=== PATIENT | male | born 1970 | race Caucasian/White ===

== ENCOUNTER 2023-02-10 14:00 | Inpatient (IN) | payer MEDICAID, SELFPAY ==
[2023-02-10] VITALS (8 sets, daily range): BP systolic 92–143; BP diastolic 51–90; PULSE 77–101; RESP 14–34; TEMP 35.8–38.2; O2SAT 90–100; BMI 27.2; BMI 26.6
--- NOTE | ~2023-02-10 | XR_ITS ---
EXAMINATION: XR CHEST CLINICAL INFORMATION: Short of breath. COMPARISON: None available. TECHNIQUE: Frontal view of the chest was obtained. FINDINGS: The lungs are expanded with no acute pneumonic process. Heart size is normal. There is increased bilateral pulmonary vascularity suggestive of CHF. No gross bony abnormality seen. XR/XR chest 1V IMPRESSION: Mild CHF. No acute pneumonic process seen.
--- NOTE | 2023-02-10 14:05 | ECG_ITS ---
Test Reason : AMS Blood Pressure : / mmHG Vent. Rate : 099 BPM Atrial Rate : 099 BPM P-R Int : 140 ms QRS Dur : 134 ms QT Int : 370 ms P-R-T Axes : 042 -86 034 degrees QTc Int : 474 ms Normal sinus rhythm Right bundle branch block Left anterior fascicular block Bifascicular block Abnormal ECG No previous ECGs available Referred By: Lesley Wilks Electronically Signed By:TODD FAITH MD
--- NOTE | 2023-02-10 14:10 | ED_ITS ---
HPI - General Adult General Chief complaint: Altered Mental Status Stated complaint: AMS,SOB,FROM SNF PER EMS Time Seen by Provider: 02/10/23 14:04 Source: EMS Mode of arrival: EMS History of Present Illness HPI narrative: 53-year-old male arrives via EMS with worsening altered mental status and noted to be hypoxic on their arrival at 83% with altered mental status from baseline. Patient's baseline is that he is agitated and aggressive and EMS also informs us that he has a history of pneumonia but they are unaware of any asthma/COPD. Related Data Home Medications Medication Instructions Recorded Confirmed Lactobacillus acidophilus 1 cap PO BID 02/10/23 02/10/23 (Acidophilus capsule) acetaminophen 160 mg/5 mL oral 650 mg PO Q6H PRN Fever Or Pain 02/10/23 02/10/23 liquid acetaminophen 325 mg tablet 650 mg PO TID back pain 02/10/23 02/10/23 amlodipine 5 mg tablet 5 mg PO DAILY 02/10/23 02/10/23 aspirin 81 mg chewable tablet 81 mg PO DAILY 02/10/23 02/10/23 atorvastatin 80 mg tablet 80 mg PO BEDTIME 02/10/23 02/10/23 clonidine HCl 0.1 mg tablet 0.1 mg PO BID 02/10/23 02/10/23 docusate sodium 50 mg/5 mL oral 100 mg PO DAILY 02/10/23 02/10/23 liquid doxycycline monohydrate 100 mg 100 mg PO BID 02/10/23 02/10/23 tablet famotidine 20 mg tablet 20 mg PO BEDTIME 02/10/23 02/10/23 hydroxyzine HCl 25 mg tablet 25 mg PO BID PRN Agitation 02/10/23 02/10/23 insulin glargine 100 unit/mL (3 14 unit subcut QAM 02/10/23 02/10/23 mL) subcutaneous pen (Lantus Solostar U-100 Insulin) insulin glargine 100 unit/mL 22 unit subcut BEDTIME 02/10/23 02/10/23 subcutaneous solution (Lantus U-100 Insulin) insulin lispro 100 unit/mL 1 sliding scale dose subcut 02/10/23 02/10/23 subcutaneous pen USEASDIRECTD lactulose 10 gram/15 mL oral 30 ml PO BID 02/10/23 02/10/23 solution levetiracetam 750 mg tablet 750 mg PO BID 02/10/23 02/10/23 melatonin 10 mg tablet 10 mg PO BEDTIME 02/10/23 02/10/23 metformin 1,000 mg tablet 1,000 mg PO BID 02/10/23 02/10/23 miconazole nitrate 2 % topical 1 appl topical BID 02/10/23 02/10/23 powder prednisone 20 mg tablet See Taper PO DAILY 02/10/23 02/10/23 propranolol 40 mg tablet 40 mg PO TID 02/10/23 02/10/23 risperidone 2 mg tablet (Risperdal) 2 mg PO BID 02/10/23 02/10/23 sennosides 8.6 mg tablet (senna) 8.6 mg PO DAILY PRN Constipation 02/10/23 02/10/23 sodium chloride 1 gram tablet 1,000 mg PO TID 02/10/23 02/10/23 tamsulosin 0.4 mg capsule 0.4 mg PO BEDTIME 02/10/23 02/10/23 Allergies Allergy/AdvReac Type Severity Reaction Status Date / Time Unable to Assess Allergy Verified 02/10/23 14:05 Review of Systems 2 Review of Systems: Pertinent positives and negatives as stated in [facility] Past Medical History Source: nursing notes reviewed Social History Social History Advance Directives: Yes Advance Directives on File: Yes Advance Directives Date on File: 02/10/23 Physical Exam ED Vital Signs: Vital Signs - 24 hr 02/10/23 14:08 02/10/23 14:56 02/10/23 15:49 Temperature 100.7 F H Pulse Rate 98 93 89 Respiratory Rate 34 H 22 H 22 H Blood Pressure 97/63 143/90 H 115/62 Pulse Oximetry 90 L 100 100 Oxygen Delivery Method Oxymask Oxymask Oxygen Flow Rate 9 9 02/10/23 16:09 Temperature Pulse Rate 86 Respiratory Rate 21 H Blood Pressure 126/51 L Pulse Oximetry 100 Oxygen Delivery Method Oxymask Oxygen Flow Rate BMI result Body Mass Index 27.2 VITAL SIGNS: Reviewed. GENERAL: Well developed, well nourished, in no acute distress. HEAD: Normocephalic/atraumatic EYES: PERRLA, EOMI EARS: Ext canals without abnormality NOSE: Nares patent bilateral OROPHARYNX: no oral lesions noted, posterior pharynx clear, dry mucosa NECK: Supple, no adenopathy LUNGS: Bibasilar crackles, tachypnea is present with increased work of breathing. SpO2<88> 4 L nasal cannula CARDIOVASCULAR: Regular rate and rhythm without noted murmurs, no JVD or lower extremity edema. ABDOMEN: Soft, non-tender, non-distended with bowel sounds. MUSCULOSKELETAL: No tenderness, deformities, or effusions noted on gross inspection. EXTREMITIES: No cyanosis, clubbing or edema. SKIN: Inspection of the skin reveals no rashes NEUROLOGIC: lethargic and oriented x 1. Strength and sensation to light touch were grossly intact x 4. Medications Administered Discontinued Medications Generic Name Dose Route Start Last Admin Trade Name Freq PRN Reason Stop Dose Admin Acetaminophen 650 mg 02/10/23 14:19 02/10/23 16:04 Acetaminophen Supp 650 Mg Supp.Rect DE 02/10/23 14:20 650 mg ONCE ONE Administration Sodium Chloride 2,508 mls @ 2,508 mls/hr 02/10/23 14:11 02/10/23 16:19 Ns 30 ml/kg infuse over 1 hr (2508 ml) 02/10/23 15:10 Infused IV Infusion .Q1H STA Cefepime HCl 2 gm/ Sodium 50 mls @ 100 mls/hr 02/10/23 14:42 02/10/23 16:04 Chloride IV 02/10/23 15:11 100 mls/hr ONCE ONE Administration Medical Decision Making Medical Decision Making [facility] Narrative: 1405: Sepsis Alert called for a 53-year-old male who is brought in from care 1 with history of recurrent pneumonia and noted to be hypoxic as well as hypotensive. Patient immediately received bolus fluids for consecutive low blood pressures and has oxygen in place. Patient required immediate respiratory intervention, deep suctioning was conducted, improved oxygen delivery system was applied with good response. Respiratory therapy placed an OxyMask at 11 L with good response and and also suction the patient for thick secretions. 1505: I reviewed all investigations and hematologic indices are significant for leukocytosis and left shift, there is a normocytic anemia without evidence of active bleeding and no thrombocytopenia. Coagulation studies are mildly elevated with PT-19.1 and an INR 1.6. VBG negative for respiratory acidosis and there is no hypercapnia. Chemistry indices demonstrate an JONH without comparison and will assume that it is new there is a mild metabolic acidosis likely secondary to elevated lactic acid of 2.7. Mild hyperglycemia of 211 without evidence of DKA or HHS. Chest x-ray only demonstrate CHF and otherwise does not identify infiltrate and otherwise my interpretation is in agreement with radiology's impression. 1524: I discussed case with inpatient hospitalist who accepts admission. Urinalysis is pending. Differential Diagnosis Differential Diagnoses: The differential diagnosis associated with the presentation includes Please see the discussion above Admission/Observation Consideration of admission/observation: Escalation of care including admission/observation considered Please see the discussion above Consult Healthcare Provider Management of the patient was discussed with: Hospitalist Please see the discussion above Lab Data MDM Lab Attestation statement: I reviewed the patient's lab results. Please see the discussion above 02/10/23 14:38 02/10/23 14:38 Labs: Lab Results 02/10/23 02/10/23 Range/Units 14:38 14:41 WBC 16.0 H (4.8-10.8) X10*3/uL RBC 4.36 L (4.60-5.80) X10*6/uL Hgb 13.1 L (14.0-18.0) g/dl Hct 38.6 L (42.0-52.0) % MCV 88.5 (80.0-98.0) fL MCH 30.0 (27.0-33.0) pg MCHC 33.9 (31.0-36.0) g/dl RDW 13.2 (11.0-16.0) % Plt Count 176 (160-400) X10*3/uL MPV 8.7 L (9.4-12.4) fL Immature Gran % (Auto) 0.3 (0.0-0.4) % Neut % (Auto) 76.0 H (45-73) % Lymph % (Auto) 13.0 L (20-40) % [place] % (Auto) 10.4 (2-11) % Eos % (Auto) 0.0 (0-4) % Baso % (Auto) 0.3 (0-2) % Lymph # (Auto) 2.1 (1.2-4.9) X10*3/uL [place] # (Auto) 1.7 H (0.1-1.2) X10*3/uL Eos # (Auto) 0.0 (0.0-0.4) X10*3/uL Baso # (Auto) 0.0 (0.0-0.2) X10*3/uL Abs Immat Gran (auto) 0.05 H (0.00-0.03) X10*3/uL Absolute Neuts (auto) 12.1 H (2.0-8.3) x10*3/uL Absolute Nucleated RBC 0.000 (0.0-0.012) X10*3/uL Nucleated RBC % (auto) 0.0 (0.0-0.2) /100WBC Smear Tech's Comments VERIFIED PT 19.1 H (11.1-13.3) SEC INR 1.6 H (0.9-1.1) VBG pH 7.41 (7.32-7.43) VBG pCO2 35 mmHg VBG pO2 40 mmHg VBG HCO3 22 (22-26) mmol/L VBG O2 Saturation 62.0 % VBG Base Excess -1.1 mmol/L Sodium 133 L (135-145) mmol/L Potassium 5.1 (3.3-5.1) mmol/L Chloride 100 (96-108) mmol/L Carbon Dioxide 21 L (22-29) mmol/L Anion Gap 17 (12-20) BUN 22 H (9-16) mg/dL Creatinine 1.44 H (0.5-1.4) mg/dL Estim Creat Clear Calc 57.9 Estimated GFR 51 Random Glucose 211 H (60-115) mg/dL Lactic Acid 2.7 H* (0.5-2.0) mmol/L Calcium 9.8 (8.4-10.2) mg/dL Total Bilirubin 0.5 (0.0-1.0) mg/dL AST 32 (5-37) U/L ALT 24 (0-40) U/L Alkaline Phosphatase 93 (39-117) U/L B-Natriuretic Peptide 84 (<100) pg/mL Total Protein 7.6 (6.5-8.0) g/dL Albumin 4.0 (3.5-5.0) g/dL Independent Interpretation I performed an independent interpretation of an: EKG Interpretation: No sinus rhythm, HR-99, no STEMI, RBBB, DE/QTC within normal limits. Radiology Impression Discussion of test interpretation with radiology: I have reviewed the radiologist's reading. Radiologist Impression: Please see the discussion above Chronic Conditions Patient?s care impacted by: Diabetes and Other TBI Critical Care Time Critical Care Time Critical Care Time: Yes Total Critical Care Time: 60 Attestation: I personally attest to this time spent taking care of the patient. Discharge Plan Discharge Clinical Impression: Altered mental status, Acute respiratory failure with hypoxia Patient Disposition: Admitted As Inpatient
[2023-02-10 14:45] LABS: Basophils Percent Auto 0.3 % (0-2); Hematocrit 38.6 % (42.0-52.0); Hemoglobin 13.1 g/dl (14.0-18.0); Imm Gran Abs Auto 0.05 X10*3/uL (0.00-0.03); Imm Gran Pct Auto 0.3 % (0.0-0.4); Lymphocytes Absolute Auto 2.1 X10*3/uL (1.2-4.9); MANUAL DIFF FLAG SCAN; Mean Corpuscular HGB Conc 33.9 g/dl (31.0-36.0); Mean Corpuscular Volume 88.5 fL (80.0-98.0); Mean Platelet Volume 8.7 fL (9.4-12.4); Monocytes Absolute Auto 1.7 X10*3/uL (0.1-1.2); Monocytes Percent Auto 10.4 % (2-11); Neutrophils Absolute Auto 12.1 x10*3/uL (2.0-8.3); Platelet Count 176 X10*3/uL (160-400); Red Blood Count 4.36 X10*6/uL (4.60-5.80); Red Cell Distribution Width 13.2 % (11.0-16.0); SCAN SMEAR FLAG 1
[2023-02-10 14:47] LABS: VBG Base Excess -1.1 mmol/L; VBG HCO3 22 mmol/L (22-26); VBG pCO2 35 mmHg; VBG pH 7.41 (7.32-7.43); VBG pO2 40 mmHg
[2023-02-10 14:47] LABS: Venous Blood Gas Refer to POC result
[2023-02-10 14:55] LABS: INTERNATIONAL NORM RATIO 1.6 (0.9-1.1); Prothrombin Time 19.1 SEC (11.1-13.3)
[2023-02-10 15:00] LABS: Lactic Acid 2.7 mmol/L (0.5-2.0)
[2023-02-10 15:03] LABS: Alanine Aminotransferase 24 U/L (0-40); Alkaline Phosphatase 93 U/L (39-117); Anion Gap 17 (12-20); Aspartate Amino Transferase 32 U/L (5-37); Bilirubin Total 0.5 mg/dL (0.0-1.0); Blood Urea Nitrogen 22 mg/dL (9-16); Calcium 9.8 mg/dL (8.4-10.2); Carbon Dioxide 21 mmol/L (22-29); Chloride 100 mmol/L (96-108); Creatinine Clr Calc Pharmacy 57.9; Estimated Glomerular Filt Rate 51; Glucose Random 211 mg/dL (60-115); Potassium 5.1 mmol/L (3.3-5.1); Sodium 133 mmol/L (135-145); Total Protein 7.6 g/dL (6.5-8.0)
[2023-02-10 15:07] LABS: SLIDE REVIEW VERIFIED
[2023-02-10 15:08] LABS: B Type Natriuretic Peptide 84 pg/mL (<100)
--- NOTE | 2023-02-10 15:39 | PHA.MEDREC ---
Pharmacy Consult ? Medication Reconciliation Pharmacy has completed the medication reconciliation. Patient came from [facility] with med list. Justine Grier, LylyD
[2023-02-10] MEDS: Acetaminophen Supp 650 MG SUPP.RECT PR (16:04)
[2023-02-10] MEDS: cefEPime HCl 2 GM in 0.9 % Sodium Chloride 50 ML IV (16:04)
[2023-02-10 16:36] LABS: COVID-19 Test Negative (Negative); IDNOW Serial# 08D9AD1C; IDNOW Serial# BCCEAD1C; Influenza A Negative (Negative); Influenza B2 Negative (Negative)
[2023-02-10 16:38] LABS: Appearance Urine Cloudy; Color Urine Yellow; Glucose Urine UA Negative (Negative); Leukocyte Esterase Urine Moderate (2+) (Negative); Nitrite Urine Positive (Negative); PH 5.5 (5.0-9.0); Specific Gravity - Urine 1.015 (1.005-1.025); UMIC TRIGGER UACC YES; Urine Blood Negative (Negative); Urine Ketones Negative (Negative); Urine Protein Trace mg/dL (Neg-Trace)
[2023-02-10 16:43] LABS: Reflex Lactate? Lactic Acid Added
[2023-02-10 16:48] LABS: Bacteria Urine 2+ (None Seen); Calcium Oxalate Crystals Urine Present; Hyaline Casts Urine >20 /LPF (0-2); UACC Culture Trigger YES; WBC Urine 21-50 /HPF (0-5)
--- NOTE | 2023-02-10 17:12 | PM.IMHP ---
History of Present Illness Date of Service: 02/10/23 Chief Complaint: Hypoxia 53-year-old resident of [facility] well known to me presents with worsening shortness of breath over the course of the last 48 hours. Initially he examined rhonchorous with sats that were correctable to 92% with oxygen. Over the course of the last 12 hours he deteriorated with sats notably in the 80s. He presented to the ER with low-grade temp and was treated with sepsis protocol included volume resuscitation. Urine with active sediment. Received 2 g of cefepime in ER. Will be admitted for treatment of same Review of Systems Review of Systems: Unable to obtain [facility] Social History Advance Directives: Yes Advance Directives on File: Yes Advance Directives Date on File: 02/10/23 Meds Allergies Allergy/AdvReac Type Severity Reaction Status Date / Time Unable to Assess Allergy Verified 02/10/23 14:05 Active Medications: Current Medications Dextrose (Dextrose 50 % 25 Gm/50 Ml Syringe) 25 gm IVPUSH Q15M PRN; Protocol PRN Reason: per Hypoglycemia Standing Ord. Enoxaparin Sodium (Enoxaparin Sodium 40 Mg/0.4 Ml Syringe) 40 mg SUBCUT Q24H LAMIN Glucose (Glucose Gel 15 Gm Gel..Gram.) 15 gm PO Q15M PRN; Protocol PRN Reason: per Hypoglycemia Standing Ord. Lactated Ringer's (Lr) 1,000 mls @ 100 mls/hr IVCONT .Q10H LAMIN Cefepime HCl 2 gm/ Sodium (Chloride) 50 mls @ 100 mls/hr IV Q12H LAMIN Insulin Human Lispro (Insulin Lispro 100 Unit/Ml 3 Ml Vial) 0 unit SUBCUT QIDACHS [facility]; Protocol Sodium Chloride (0.9 % Sodium Chloride Flush 3 Ml Syringe) 3 ml IVFLUSH QSHIFT [facility] Home Medications Medication Instructions Recorded Confirmed Last Taken Type Lactobacillus acidophilus 1 cap PO BID 02/10/23 02/10/23 Unknown History (Acidophilus capsule) acetaminophen 160 mg/5 mL oral 650 mg PO Q6H PRN Fever Or Pain 02/10/23 02/10/23 Unknown History liquid acetaminophen 325 mg tablet 650 mg PO TID back pain 02/10/23 02/10/23 Unknown History amlodipine 5 mg tablet 5 mg PO DAILY 02/10/23 02/10/23 Unknown History aspirin 81 mg chewable tablet 81 mg PO DAILY 02/10/23 02/10/23 Unknown History atorvastatin 80 mg tablet 80 mg PO BEDTIME 02/10/23 02/10/23 Unknown History clonidine HCl 0.1 mg tablet 0.1 mg PO BID 02/10/23 02/10/23 Unknown History docusate sodium 50 mg/5 mL oral 100 mg PO DAILY 02/10/23 02/10/23 Unknown History liquid doxycycline monohydrate 100 mg 100 mg PO BID 02/10/23 02/10/23 Unknown History tablet famotidine 20 mg tablet 20 mg PO BEDTIME 02/10/23 02/10/23 Unknown History hydroxyzine HCl 25 mg tablet 25 mg PO BID PRN Agitation 02/10/23 02/10/23 Unknown History insulin glargine 100 unit/mL (3 14 unit subcut QAM 02/10/23 02/10/23 Unknown History mL) subcutaneous pen (Lantus Solostar U-100 Insulin) insulin glargine 100 unit/mL 22 unit subcut BEDTIME 02/10/23 02/10/23 Unknown History subcutaneous solution (Lantus U-100 Insulin) insulin lispro 100 unit/mL 1 sliding scale dose subcut 02/10/23 02/10/23 Unknown History subcutaneous pen USEASDIRECTD lactulose 10 gram/15 mL oral 30 ml PO BID 02/10/23 02/10/23 Unknown History solution levetiracetam 750 mg tablet 750 mg PO BID 02/10/23 02/10/23 Unknown History melatonin 10 mg tablet 10 mg PO BEDTIME 02/10/23 02/10/23 Unknown History metformin 1,000 mg tablet 1,000 mg PO BID 02/10/23 02/10/23 Unknown History miconazole nitrate 2 % topical 1 appl topical BID 02/10/23 02/10/23 Unknown History powder prednisone 20 mg tablet See Taper PO DAILY 02/10/23 02/10/23 Unknown History propranolol 40 mg tablet 40 mg PO TID 02/10/23 02/10/23 Unknown History risperidone 2 mg tablet (Risperdal) 2 mg PO BID 02/10/23 02/10/23 Unknown History sennosides 8.6 mg tablet (senna) 8.6 mg PO DAILY PRN Constipation 02/10/23 02/10/23 Unknown History sodium chloride 1 gram tablet 1,000 mg PO TID 02/10/23 02/10/23 Unknown History tamsulosin 0.4 mg capsule 0.4 mg PO BEDTIME 02/10/23 02/10/23 Unknown History Physical Exam Vital Signs and Narrative: Vital Signs: Last Vital Signs Temp 97.8 F 02/10/23 16:34 Pulse 91 02/10/23 16:34 Resp 16 02/10/23 16:34 BP 120/72 02/10/23 16:34 Pulse Ox 100 02/10/23 16:34 O2 Del Method Oxymask 02/10/23 16:34 O2 Flow Rate 9 02/10/23 16:34 BMI result Body Mass Index 27.2 Const: Other: Of time did. No respiratory distress Resp: Other: Diminished throughout with coarse rhonchi Cardio: Other: No S4; positive S1-S2; no S3 murmurs rubs or gallops GI: Other: Soft nontender nondistended normoactive bowel sounds Extrem: Other: No edema bilaterally Results Labs 02/10/23 14:38 02/10/23 14:38 Labs: Laboratory Results - last 24 hr 02/10/23 02/10/23 02/10/23 14:38 14:41 16:08 MCV 88.5 MCH 30.0 MCHC 33.9 RDW 13.2 Plt Count 176 MPV 8.7 L Immature Gran % (Auto) 0.3 Neut % (Auto) 76.0 H Lymph % (Auto) 13.0 L [place] % (Auto) 10.4 Eos % (Auto) 0.0 Baso % (Auto) 0.3 Lymph # (Auto) 2.1 [place] # (Auto) 1.7 H Eos # (Auto) 0.0 Baso # (Auto) 0.0 Abs Immat Gran (auto) 0.05 H Absolute Neuts (auto) 12.1 H Absolute Nucleated RBC 0.000 Nucleated RBC % (auto) 0.0 Smear Tech's Comments VERIFIED PT 19.1 H INR 1.6 H VBG pH 7.41 VBG pCO2 35 VBG pO2 40 VBG HCO3 22 VBG O2 Saturation 62.0 VBG Base Excess -1.1 Anion Gap 17 Estim Creat Clear Calc 57.9 Estimated GFR 51 Random Glucose 211 H Lactic Acid 2.7 H* Calcium 9.8 Total Bilirubin 0.5 AST 32 ALT 24 Alkaline Phosphatase 93 B-Natriuretic Peptide 84 Total Protein 7.6 Albumin 4.0 Urine Color Urine Appearance Urine pH Ur Specific Page Urine Protein Urine Glucose (UA) Urine Ketones Urine Blood Urine Nitrite Ur Leukocyte Esterase Urine RBC Urine WBC Ur Squamous Epith Cells Calcium Oxalate Crystal Urine Bacteria Hyaline Casts COVID-19 (PADMINI) Negative COVID-19 Clin Com See Note Influenza Type A (CASPER) Negative Influenza Type B (CASPER) Negative Influenza A & B Note See Note 02/10/23 16:18 MCV MCH MCHC RDW Plt Count MPV Immature Gran % (Auto) Neut % (Auto) Lymph % (Auto) [place] % (Auto) Eos % (Auto) Baso % (Auto) Lymph # (Auto) [place] # (Auto) Eos # (Auto) Baso # (Auto) Abs Immat Gran (auto) Absolute Neuts (auto) Absolute Nucleated RBC Nucleated RBC % (auto) Smear Tech's Comments PT INR VBG pH VBG pCO2 VBG pO2 VBG HCO3 VBG O2 Saturation VBG Base Excess Anion Gap Estim Creat Clear Calc Estimated GFR Random Glucose Lactic Acid Calcium Total Bilirubin AST ALT Alkaline Phosphatase B-Natriuretic Peptide Total Protein Albumin Urine Color Yellow Urine Appearance Cloudy Urine pH 5.5 Ur Specific Page 1.015 Urine Protein Trace Urine Glucose (UA) Negative Urine Ketones Negative Urine Blood Negative Urine Nitrite Positive H Ur Leukocyte Esterase Moderate (2+) H Urine RBC 3-5 H Urine WBC 21-50 H Ur Squamous Epith Cells 6-10 Calcium Oxalate Crystal Present Urine Bacteria 2+ Hyaline Casts >20 COVID-19 (PADMINI) COVID-19 Clin Com Influenza Type A (CASPER) Influenza Type B (CASPER) Influenza A & B Note Imaging Radiologist's Impressions: Impressions Chest X-Ray 02/10/23 15:20 IMPRESSION: Mild CHF. No acute pneumonic process seen. 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 Presented to emergency room with sats in the 80s. Chest x-ray suggestive of congestive heart failure; urine with active sediment 1.Acute respiratory failure with hypoxia -chest x-ray suggestive of failure. Received sepsis bolus in ER -check BNP; will hold IV fluids at this time -checks x-ray without infiltrate 2.UTI -cultures sent -cover with cefepime pending culture -adjust as indicated 3. Diabetes type 2 -lispro correctional scale -adjust as indicated when taking p.o. -resume orals when appropriate 4.Hypertension -acceptable control off meds -add back when clinically indicated Lovenox Full code Requires at least 2 midnights going forward for IV antibiotics to treat UTI; adjust for respiratory failure. This cannot be achieved a lesser acute setting Time Spent With Patient Time: Total time managing care of this patient today ____ minutes. Quality Stroke Does the patient have a stroke diagnosis?: No VTE Prior VTE?: No VTE Risk Level:: Medical - moderate - high VTE Device Contraindication: Treatment Not Indicated VTE Drug Contraindication: N/A - Med Ordered
[2023-02-10] MEDS: Lactated Ringers 1,000 ML 125 ML IVCONT (18:04)
[2023-02-10] MEDS: Enoxaparin Sodium 40 MG/0.4 ML SYRINGE SUBCUT (18:05)
[2023-02-10 19:38] LABS: Glucose, Whole Blood 162 mg/dL (60-115)
--- NOTE | 2023-02-10 20:24 | PM.EVENT ---
Event Note Date of Service: 02/10/23 Event Note: Has an advanced directive. Will change code status to DNR Time Spent With Patient Time: Total time managing care of this patient today ____ minutes.
[2023-02-10] MEDS: 0.9 % Sodium Chloride Flush 3 ML SYRINGE IVFLUSH (21:12)
[2023-02-11] MEDS: Lactated Ringers 1,000 ML 125 ML IVCONT ×3 (01:06→16:54)
--- NOTE | 2023-02-11 02:04 | PC.NURSE ---
Pt admitted to MTU from ED at change of shift. Lethargic, responding to painful stimuli by opening eyes. On 2L O2 via NC. Initially presenting with coarse crackles throughout, weak productive cough. NT suctioned throughout shift. LS presenting with rhonchi as night progressing. LR infusing as ordered. Blanchable redness to coccyx, offloading and repositioned throughout shift. Barger cath patent and draining clear urine with sediment. Guardian Lesley updated over the phone. NSR on musculoskeletal physician. Bed alarm in place and bed in lowest/locked position.
[2023-02-11 03:58] VITALS: BP 169/74; PULSE 83; RESP 14; TEMP 36.1; O2SAT 99
[2023-02-11] MEDS: cefEPime HCl 2 GM in 0.9 % Sodium Chloride 50 ML IV ×2 (04:00→15:37)
[2023-02-11 07:06] LABS: MANUAL DIFF FLAG NO
[2023-02-11 07:27] LABS: Alanine Aminotransferase 22 U/L (0-40); Albumin Level 3.4 g/dL (3.5-5.0); Alkaline Phosphatase 80 U/L (39-117); Anion Gap 12 (12-20); Aspartate Amino Transferase 29 U/L (5-37); Bilirubin Total 0.4 mg/dL (0.0-1.0); Blood Urea Nitrogen 12 mg/dL (9-16); Calcium 9.5 mg/dL (8.4-10.2); Carbon Dioxide 23 mmol/L (22-29); Chloride 106 mmol/L (96-108); Estimated Glomerular Filt Rate > 60; Glucose Fasting 129 mg/dL (60-99); Sodium 137 mmol/L (135-145); Total Protein 6.6 g/dL (6.5-8.0)
[2023-02-11 07:28] LABS: Basophils Percent Auto 0.2 % (0-2); Eosinophils Absolute Auto 0.1 X10*3/uL (0.0-0.4); Eosinophils Percent Auto 1.4 % (0-4); Hematocrit 33.7 % (42.0-52.0); Hemoglobin 11.1 g/dl (14.0-18.0); Imm Gran Abs Auto 0.02 X10*3/uL (0.00-0.03); Imm Gran Pct Auto 0.2 % (0.0-0.4); Lymphocytes Absolute Auto 2.6 X10*3/uL (1.2-4.9); Mean Corpuscular HGB Conc 32.9 g/dl (31.0-36.0); Mean Corpuscular Hemoglobin 29.8 pg (27.0-33.0); Mean Corpuscular Volume 90.6 fL (80.0-98.0); Mean Platelet Volume 8.7 fL (9.4-12.4); Monocytes Absolute Auto 1.3 X10*3/uL (0.1-1.2); Monocytes Percent Auto 12.4 % (2-11); Neutrophils Percent Auto 59.8 % (45-73); Platelet Count 143 X10*3/uL (160-400); Red Blood Count 3.72 X10*6/uL (4.60-5.80); Red Cell Distribution Width 13.2 % (11.0-16.0); White Blood Count 10.1 X10*3/uL (4.8-10.8)
--- NOTE | 2023-02-11 07:34 | MHC.CM.PN ---
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 CM will follow.
[2023-02-11 08:00] VITALS: BP 166/69; PULSE 71; RESP 18; TEMP 36.4; O2SAT 100
[2023-02-11 08:13] LABS: Glucose, Whole Blood 116 mg/dL (60-115)
[2023-02-11] MEDS: 0.9 % Sodium Chloride Flush 3 ML SYRINGE IVFLUSH ×2 (08:47→15:37)
[2023-02-11 11:28] LABS: Glucose, Whole Blood 113 mg/dL (60-115)
[2023-02-11 11:50] VITALS: BP 140/70; PULSE 88; RESP 14; TEMP 36.1; O2SAT 98
--- NOTE | 2023-02-11 13:22 | HO.PM.IMPN ---
Subjective Subjective Date of Service: 02/11/23 Interval History: More alert today. Remembers me from [facility] Review of Systems Unable to obtain Physical Exam Vital Signs: Vital Signs: Last Vital Signs Temp 96.9 F 02/11/23 11:50 Pulse 88 02/11/23 11:50 Resp 14 02/11/23 11:50 BP 140/70 H 02/11/23 11:50 Pulse Ox 98 02/11/23 11:50 O2 Del Method Nasal Cannula 02/11/23 11:50 O2 Flow Rate 2 02/11/23 11:50 BMI result Body Mass Index 26.6 Const: Other: Of time did. No respiratory distress Resp: Other: Diminished throughout with coarse rhonchi Cardio: Other: No S4; positive S1-S2; no S3 murmurs rubs or gallops GI: Other: Soft nontender nondistended normoactive bowel sounds Extrem: Other: No edema bilaterally Objective Data Active Medications Dextrose (Dextrose 50 % 25 Gm/50 Ml Syringe) 25 gm IVPUSH Q15M PRN; Protocol PRN Reason: per Hypoglycemia Standing Ord. Enoxaparin Sodium (Enoxaparin Sodium 40 Mg/0.4 Ml Syringe) 40 mg SUBCUT Q24H [facility] Last Admin: 02/10/23 18:05 Dose: 40 mg Documented By: WILI Glucose (Glucose Gel 15 Gm Gel..Gram.) 15 gm PO Q15M PRN; Protocol PRN Reason: per Hypoglycemia Standing Ord. Cefepime HCl 2 gm/ Sodium (Chloride) 50 mls @ 100 mls/hr IV Q12H [facility] Last Infusion: 02/11/23 05:01 Dose: Infused Documented By: CLAUDIO Lactated Ringer's (Lr) 1,000 mls @ 125 mls/hr IVCONT .Q8H [facility] Last Admin: 02/11/23 08:47 Dose: 125 mls/hr Documented By: TENZIN Insulin Human Lispro (Insulin Lispro 100 Unit/Ml 3 Ml Vial) 0 unit SUBCUT QIDACHS [facility]; Protocol Last Admin: 02/11/23 12:01 Dose: Not Given Documented By: TENZIN Non-Admin Reason: No Insulin Coverage Sodium Chloride (0.9 % Sodium Chloride Flush 3 Ml Syringe) 3 ml IVFLUSH QSHIFT [facility] Last Admin: 02/11/23 08:47 Dose: 3 ml Documented By: TENZIN Labs 02/11/23 06:39 02/11/23 06:39 Labs: Laboratory Results - last 24 hr 02/10/23 02/10/23 02/10/23 14:38 14:41 16:08 MCV 88.5 MCH 30.0 MCHC 33.9 RDW 13.2 Plt Count 176 MPV 8.7 L Immature Gran % (Auto) 0.3 Neut % (Auto) 76.0 H Lymph % (Auto) 13.0 L [place] % (Auto) 10.4 Eos % (Auto) 0.0 Baso % (Auto) 0.3 Lymph # (Auto) 2.1 [place] # (Auto) 1.7 H Eos # (Auto) 0.0 Baso # (Auto) 0.0 Abs Immat Gran (auto) 0.05 H Absolute Neuts (auto) 12.1 H Absolute Nucleated RBC 0.000 Nucleated RBC % (auto) 0.0 Smear Tech's Comments VERIFIED PT 19.1 H INR 1.6 H VBG pH 7.41 VBG pCO2 35 VBG pO2 40 VBG HCO3 22 VBG O2 Saturation 62.0 VBG Base Excess -1.1 Anion Gap 17 Estim Creat Clear Calc 57.9 Estimated GFR 51 POC Glucose Random Glucose 211 H Fasting Glucose Lactic Acid 2.7 H* Lactic Acid F/U @ 2Hr Calcium 9.8 Total Bilirubin 0.5 AST 32 ALT 24 Alkaline Phosphatase 93 B-Natriuretic Peptide 84 Total Protein 7.6 Albumin 4.0 Urine Color Urine Appearance Urine pH Ur Specific [place] Urine Protein Urine Glucose (UA) Urine Ketones Urine Blood Urine Nitrite Ur Leukocyte Esterase Urine RBC Urine WBC Ur Squamous Epith Cells Calcium Oxalate Crystal Urine Bacteria Hyaline Casts COVID-19 (PADMINI) Negative COVID-19 Clin Com See Note Influenza Type A (CASPER) Negative Influenza Type B (CASPER) Negative Influenza A & B Note See Note 02/10/23 02/10/23 02/10/23 16:18 19:31 20:05 MCV MCH MCHC RDW Plt Count MPV Immature Gran % (Auto) Neut % (Auto) Lymph % (Auto) [place] % (Auto) Eos % (Auto) Baso % (Auto) Lymph # (Auto) [place] # (Auto) Eos # (Auto) Baso # (Auto) Abs Immat Gran (auto) Absolute Neuts (auto) Absolute Nucleated RBC Nucleated RBC % (auto) Smear Tech's Comments PT INR VBG pH VBG pCO2 VBG pO2 VBG HCO3 VBG O2 Saturation VBG Base Excess Anion Gap Estim Creat Clear Calc Estimated GFR POC Glucose 162 H Random Glucose Fasting Glucose Lactic Acid Lactic Acid F/U @ 2Hr 2.0 Calcium Total Bilirubin AST ALT Alkaline Phosphatase B-Natriuretic Peptide Total Protein Albumin Urine Color Yellow Urine Appearance Cloudy Urine pH 5.5 Ur Specific [place] 1.015 Urine Protein Trace Urine Glucose (UA) Negative Urine Ketones Negative Urine Blood Negative Urine Nitrite Positive H Ur Leukocyte Esterase Moderate (2+) H Urine RBC 3-5 H Urine WBC 21-50 H Ur Squamous Epith Cells 6-10 Calcium Oxalate Crystal Present Urine Bacteria 2+ Hyaline Casts >20 COVID-19 (PADMINI) COVID-19 Clin Com Influenza Type A (CASPER) Influenza Type B (CASPER) Influenza A & B Note 02/11/23 02/11/23 02/11/23 06:39 08:10 11:20 MCV 90.6 MCH 29.8 MCHC 32.9 RDW 13.2 Plt Count 143 L MPV 8.7 L Immature Gran % (Auto) 0.2 Neut % (Auto) 59.8 Lymph % (Auto) 26.0 [place] % (Auto) 12.4 H Eos % (Auto) 1.4 Baso % (Auto) 0.2 Lymph # (Auto) 2.6 [place] # (Auto) 1.3 H Eos # (Auto) 0.1 Baso # (Auto) 0.0 Abs Immat Gran (auto) 0.02 Absolute Neuts (auto) 6.0 Absolute Nucleated RBC 0.000 Nucleated RBC % (auto) 0.0 Smear Tech's Comments PT INR VBG pH VBG pCO2 VBG pO2 VBG HCO3 VBG O2 Saturation VBG Base Excess Anion Gap 12 Estim Creat Clear Calc 149.0 Estimated GFR > 60 POC Glucose 116 H 113 Random Glucose Fasting Glucose 129 H Lactic Acid Lactic Acid F/U @ 2Hr Calcium 9.5 Total Bilirubin 0.4 AST 29 ALT 22 Alkaline Phosphatase 80 B-Natriuretic Peptide Total Protein 6.6 Albumin 3.4 L Urine Color Urine Appearance Urine pH Ur Specific [place] Urine Protein Urine Glucose (UA) Urine Ketones Urine Blood Urine Nitrite Ur Leukocyte Esterase Urine RBC Urine WBC Ur Squamous Epith Cells Calcium Oxalate Crystal Urine Bacteria Hyaline Casts COVID-19 (PADMINI) COVID-19 Clin Com Influenza Type A (CASPER) Influenza Type B (CASPER) Influenza A & B Note Microbiology Microbiology Results: Microbiology 02/10/23 16:18 Urine Culture - Preliminary Urine Catheterized - Barger Catheter Culture too young to evaluate. Assessment and Plan (1) UTI (urinary tract infection): Status: Acute (2) Acute respiratory failure with hypoxia: Status: Acute (3) Diabetes type 2, controlled: Status: Acute (4) Hypertension: Status: Acute Plan 53-year-old male well known to me from [facility] developed worsening shortness of breath over the last 48 hours. Presented to emergency room with sats in the 80s. Chest x-ray suggestive of congestive heart failure; urine with active sediment 1..UTI -cultures sent -cover with cefepime pending culture... Likely culprit -adjust as indicated 2.Acute respiratory failure with hypoxia -BNP unremarkable -checks x-ray without infiltrate 3.Diabetes type 2 -lispro correctional scale -adjust as indicated when taking p.o. -resume orals when appropriate 4.Hypertension -acceptable control off meds -add back when clinically indicated Lovenox Full code Requires ongoing IV antibiotics to treat likely UTI Time Spent With Patient Time: Total time managing care of this patient today ____ minutes. Quality Stroke Does the patient have a stroke diagnosis?: No VTE Prior VTE?: No VTE Risk Level:: Medical - moderate - high VTE Device Contraindication: Treatment Not Indicated VTE Drug Contraindication: N/A - Med Ordered
--- NOTE | 2023-02-11 13:54 | MHC.CM.PN ---
This CM spoke with mother/conservator Lesley to inform of hospital admission. [phone].
[2023-02-11 15:36] VITALS: BP 120/88; PULSE 99; RESP 19; TEMP 36.1; O2SAT 95
[2023-02-11] MEDS: LORazepam 2 MG/ML VIAL IVPUSH (15:36)
[2023-02-11 15:53] LABS: Glucose, Whole Blood 131 mg/dL (60-115)
[2023-02-11] MEDS: Enoxaparin Sodium 40 MG/0.4 ML SYRINGE SUBCUT (16:54)
[2023-02-11 19:50] LABS: Glucose, Whole Blood 136 mg/dL (60-115)
[2023-02-11 19:55] VITALS: BP 129/105; PULSE 115; RESP 20; TEMP 36.9; O2SAT 96
[2023-02-11 23:51] VITALS: PULSE 110; RESP 20; TEMP 36.3; O2SAT 96
[2023-02-12] MEDS: OLANZapine 10 MG VIAL IM ×2 (00:09→22:00)
[2023-02-12 03:26] VITALS: BP 184/88; PULSE 89; RESP 16; TEMP 36.1; O2SAT 96
[2023-02-12] MEDS: cefEPime HCl 2 GM in 0.9 % Sodium Chloride 50 ML IV ×2 (04:05→15:24)
[2023-02-12] MEDS: 0.9 % Sodium Chloride Flush 3 ML SYRINGE IVFLUSH ×3 (04:06→20:54)
[2023-02-12] MEDS: Lactated Ringers 1,000 ML 125 ML IVCONT ×2 (04:06→11:37)
[2023-02-12 07:19] LABS: MANUAL DIFF FLAG NO
[2023-02-12 07:23] VITALS: BP 210/84; PULSE 87; RESP 18; TEMP 36.8; O2SAT 96
[2023-02-12 07:28] LABS: Basophils Percent Auto 0.3 % (0-2); Eosinophils Absolute Auto 0.2 X10*3/uL (0.0-0.4); Eosinophils Percent Auto 3.3 % (0-4); Hematocrit 35.1 % (42.0-52.0); Hemoglobin 11.9 g/dl (14.0-18.0); Imm Gran Abs Auto 0.01 X10*3/uL (0.00-0.03); Imm Gran Pct Auto 0.1 % (0.0-0.4); Lymphocytes Absolute Auto 2.1 X10*3/uL (1.2-4.9); Lymphocytes Percent Auto 31.9 % (20-40); Mean Corpuscular HGB Conc 33.9 g/dl (31.0-36.0); Mean Corpuscular Hemoglobin 30.2 pg (27.0-33.0); Mean Corpuscular Volume 89.1 fL (80.0-98.0); Mean Platelet Volume 8.7 fL (9.4-12.4); Monocytes Absolute Auto 0.9 X10*3/uL (0.1-1.2); Monocytes Percent Auto 13.6 % (2-11); Neutrophils Absolute Auto 3.4 x10*3/uL (2.0-8.3); Neutrophils Percent Auto 50.8 % (45-73); Platelet Count 152 X10*3/uL (160-400); Red Blood Count 3.94 X10*6/uL (4.60-5.80); Red Cell Distribution Width 12.7 % (11.0-16.0); White Blood Count 6.7 X10*3/uL (4.8-10.8)
[2023-02-12 07:33] LABS: Glucose, Whole Blood 120 mg/dL (60-115)
[2023-02-12 08:18] LABS: Alanine Aminotransferase 21 U/L (0-40); Albumin Level 3.8 g/dL (3.5-5.0); Alkaline Phosphatase 85 U/L (39-117); Anion Gap 15 (12-20); Aspartate Amino Transferase 27 U/L (5-37); Bilirubin Total 0.6 mg/dL (0.0-1.0); Blood Urea Nitrogen 7 mg/dL (9-16); Calcium 9.9 mg/dL (8.4-10.2); Carbon Dioxide 23 mmol/L (22-29); Chloride 100 mmol/L (96-108); Creatinine Clr Calc Pharmacy 136.8; Estimated Glomerular Filt Rate > 60; Glucose Fasting 124 mg/dL (60-99); Potassium 3.7 mmol/L (3.3-5.1); Sodium 134 mmol/L (135-145); Total Protein 7.2 g/dL (6.5-8.0)
[2023-02-12 11:08] LABS: Glucose, Whole Blood 141 mg/dL (60-115)
[2023-02-12] MEDS: levETIRAcetam 500 MG TABLET PO ×2 (11:32→20:54)
[2023-02-12] MEDS: cloNIDine HCL 0.1 MG TABLET PO ×2 (11:32→20:53)
[2023-02-12] MEDS: levETIRAcetam 250 MG TABLET PO ×2 (11:32→20:54)
[2023-02-12] MEDS: amLODIPine Besylate 5 MG TABLET PO (11:32)
[2023-02-12] MEDS: Docusate Sodium 100 MG/10 ML LIQUID PO (11:33)
[2023-02-12 12:00] VITALS: BP 194/81; PULSE 88; RESP 18; TEMP 37.1; O2SAT 98
--- NOTE | 2023-02-12 15:28 | HO.PM.IMPN ---
Subjective Subjective Date of Service: 02/13/23 Interval History: Asking for food, feeling hungry otherwise offering no other symptoms. Review of Systems Unable to obtain detailed review of system Physical Exam Vital Signs: Vital Signs: Last Vital Signs Temp 98.7 F 02/12/23 12:00 Pulse 88 02/12/23 12:00 Resp 18 02/12/23 12:00 BP 194/81 H 02/12/23 12:00 Pulse Ox 98 02/12/23 12:00 O2 Del Method Room Air 02/12/23 12:00 O2 Flow Rate 2 02/11/23 11:50 BMI result Body Mass Index 26.6 Const: Other: General resting comfortably,o acute distress. Neck no JVD. CVS regular rate rhythm, Respiratory lungs coarse breath sound, no respiratory distress, no wheeze, no rhonchi. Gastrointestinal abdomen soft, non tender, bowel sounds audible. Extremities no edema. Skin no rash Objective Data Active Medications Amlodipine Besylate (Amlodipine Besylate 5 Mg Tablet) 5 mg PO DAILY [facility]; Protocol Last Admin: 02/12/23 11:32 Dose: 5 mg Documented By: TOMMIE Clonidine HCl (Clonidine Hcl 0.1 Mg Tablet) 0.1 mg PO BID [facility]; Protocol Last Admin: 02/12/23 11:32 Dose: 0.1 mg Documented By: TOMMIE Dextrose (Dextrose 50 % 25 Gm/50 Ml Syringe) 25 gm IVPUSH Q15M PRN; Protocol PRN Reason: per Hypoglycemia Standing Ord. Docusate Sodium (Docusate Sodium 100 Mg/10 Ml Liquid) 100 mg PO DAILY [facility] Last Admin: 02/12/23 11:33 Dose: 100 mg Documented By: TOMMIE Enoxaparin Sodium (Enoxaparin Sodium 40 Mg/0.4 Ml Syringe) 40 mg SUBCUT Q24H [facility] Last Admin: 02/11/23 16:54 Dose: 40 mg Documented By: TENZIN Famotidine (Famotidine 20 Mg Tablet) 20 mg PO BEDTIME [facility] Glucose (Glucose Gel 15 Gm Gel..Gram.) 15 gm PO Q15M PRN; Protocol PRN Reason: per Hypoglycemia Standing Ord. Hydroxyzine HCl (Hydroxyzine Hcl 25 Mg Tablet) 25 mg PO BID PRN PRN Reason: Agitation Cefepime HCl 2 gm/ Sodium (Chloride) 50 mls @ 100 mls/hr IV Q12H [facility] Last Admin: 02/12/23 15:24 Dose: 100 mls/hr Documented By: TOMMIE Lactated Ringer's (Lr) 1,000 mls @ 125 mls/hr IVCONT .Q8H [facility] Last Admin: 02/12/23 11:37 Dose: 125 mls/hr Documented By: TOMMIE Insulin Human Lispro (Insulin Lispro 100 Unit/Ml 3 Ml Vial) 0 unit SUBCUT QIDACHS [facility]; Protocol Last Admin: 02/12/23 12:47 Dose: Not Given Documented By: TOMMIE Non-Admin Reason: No Insulin Coverage Levetiracetam (Levetiracetam 500 Mg Tablet) 500 mg PO BID [facility] Last Admin: 02/12/23 11:32 Dose: 500 mg Documented By: TOMMIE Levetiracetam (Levetiracetam 250 Mg Tablet) 250 mg PO BID [facility] Last Admin: 02/12/23 11:32 Dose: 250 mg Documented By: TOMMIE Sodium Chloride (0.9 % Sodium Chloride Flush 3 Ml Syringe) 3 ml IVFLUSH QSHIFT [facility] Last Admin: 02/12/23 08:59 Dose: Not Given Documented By: TOMMIE Non-Admin Reason: Not In Room Labs 02/13/23 06:13 02/13/23 06:13 Labs: Laboratory Results - last 24 hr 02/11/23 02/11/23 02/12/23 15:45 19:32 07:12 MCV 89.1 MCH 30.2 MCHC 33.9 RDW 12.7 Plt Count 152 L MPV 8.7 L Immature Gran % (Auto) 0.1 Neut % (Auto) 50.8 Lymph % (Auto) 31.9 [place] % (Auto) 13.6 H Eos % (Auto) 3.3 Baso % (Auto) 0.3 Lymph # (Auto) 2.1 [place] # (Auto) 0.9 Eos # (Auto) 0.2 Baso # (Auto) 0.0 Abs Immat Gran (auto) 0.01 Absolute Neuts (auto) 3.4 Absolute Nucleated RBC 0.000 Nucleated RBC % (auto) 0.0 Anion Gap 15 Estim Creat Clear Calc 136.8 Estimated GFR > 60 POC Glucose 131 H 136 H Fasting Glucose 124 H Calcium 9.9 Total Bilirubin 0.6 AST 27 ALT 21 Alkaline Phosphatase 85 Total Protein 7.2 Albumin 3.8 02/12/23 02/12/23 07:21 11:04 MCV MCH MCHC RDW Plt Count MPV Immature Gran % (Auto) Neut % (Auto) Lymph % (Auto) [place] % (Auto) Eos % (Auto) Baso % (Auto) Lymph # (Auto) [place] # (Auto) Eos # (Auto) Baso # (Auto) Abs Immat Gran (auto) Absolute Neuts (auto) Absolute Nucleated RBC Nucleated RBC % (auto) Anion Gap Estim Creat Clear Calc Estimated GFR POC Glucose 120 H 141 H Fasting Glucose Calcium Total Bilirubin AST ALT Alkaline Phosphatase Total Protein Albumin Microbiology Microbiology Results: Microbiology 02/10/23 16:18 Urine Culture - Final Urine Catheterized - Barger Catheter 02/10/23 15:44 Blood Culture - Preliminary Blood - Venous No growth after 24 hours. 02/10/23 14:38 Blood Culture - Preliminary Blood - Venous No growth after 24 hours. Assessment and Plan (1) UTI (urinary tract infection): Status: Acute (2) Acute respiratory failure with hypoxia: Status: Acute (3) Diabetes type 2, controlled: Status: Acute (4) Hypertension: Status: Acute Plan 53-year-old male [facility] worsening shortness of breath over the last 48 hours. Presented to emergency room with sats in the 80s. Chest x-ray suggestive of congestive heart failure; urine with active sediment 1.UTI -continue IV cefepime follow urine and blood cultures 2.Acute respiratory failure with hypoxia -hypoxia resolved now 97% on room air. -BNP unremarkable, chest x-ray showed no pneumonia, no evidence of CHF DC IV fluids 3.Diabetes type 2 -resume diabetic diet continue lispro correctional scale, hold Lantus and metformin. 4.Hypertension -elevated blood pressures, DC IV fluids, resume home medications amlodipine, propranolol and clonidine monitor blood pressure closely. 5.Mood disorder continue home medication. Lovenox Full code Requires ongoing IV antibiotics to treat likely UTI Time Spent With Patient Time: Total time managing care of this patient today ____ minutes. Quality Stroke Does the patient have a stroke diagnosis?: No VTE Prior VTE?: No VTE Risk Level:: Medical - moderate - high VTE Device Contraindication: Treatment Not Indicated VTE Drug Contraindication: N/A - Med Ordered
[2023-02-12 15:35] VITALS: BP 165/74; PULSE 76; RESP 18; TEMP 36.1; O2SAT 97
[2023-02-12] MEDS: Propranolol HCL 40 MG TABLET PO ×2 (16:00→20:53)
[2023-02-12 16:33] LABS: Glucose, Whole Blood 189 mg/dL (60-115)
[2023-02-12] MEDS: Enoxaparin Sodium 40 MG/0.4 ML SYRINGE SUBCUT (17:43)
[2023-02-12] MEDS: Insulin Lispro 100 UNIT/ML 3 ML VIAL SUBCUT (17:43)
[2023-02-12 20:00] VITALS: BP 196/80; PULSE 80; RESP 17; TEMP 37.2; O2SAT 97
[2023-02-12 20:22] LABS: Glucose, Whole Blood 140 mg/dL (60-115)
[2023-02-12] MEDS: risperiDONE 2 MG TABLET PO (20:53)
[2023-02-12] MEDS: Famotidine 20 MG TABLET PO (20:54)
[2023-02-12] MEDS: Tamsulosin HCL 0.4 MG CAPSULE PO (20:54)
[2023-02-12] MEDS: Lactulose 20 GM/30 ML SOLUTION PO (20:59)
[2023-02-12] MEDS: hydrOXYzine HCL 25 MG TABLET PO (21:04)
[2023-02-12 22:59] VITALS: BP 141/91; PULSE 70
[2023-02-13] MEDS: cefEPime HCl 2 GM in 0.9 % Sodium Chloride 50 ML IV (04:37)
[2023-02-13 04:57] VITALS: BP 187/85; PULSE 63
[2023-02-13 06:41] LABS: Basophils Percent Auto 0.4 % (0-2); Eosinophils Absolute Auto 0.2 X10*3/uL (0.0-0.4); Eosinophils Percent Auto 3.9 % (0-4); Hematocrit 38.3 % (42.0-52.0); Hemoglobin 12.9 g/dl (14.0-18.0); Imm Gran Abs Auto 0.01 X10*3/uL (0.00-0.03); Imm Gran Pct Auto 0.2 % (0.0-0.4); Lymphocytes Absolute Auto 2.2 X10*3/uL (1.2-4.9); Lymphocytes Percent Auto 41.1 % (20-40); MANUAL DIFF FLAG SCAN; Mean Corpuscular HGB Conc 33.7 g/dl (31.0-36.0); Mean Corpuscular Hemoglobin 29.9 pg (27.0-33.0); Mean Corpuscular Volume 88.7 fL (80.0-98.0); Monocytes Absolute Auto 0.7 X10*3/uL (0.1-1.2); Monocytes Percent Auto 13.2 % (2-11); Neutrophils Absolute Auto 2.3 x10*3/uL (2.0-8.3); Neutrophils Percent Auto 41.2 % (45-73); PLT CLUMP 1; Red Blood Count 4.32 X10*6/uL (4.60-5.80); Red Cell Distribution Width 12.5 % (11.0-16.0); SCAN SMEAR FLAG 1
[2023-02-13 06:49] LABS: Alanine Aminotransferase 19 U/L (0-40); Alkaline Phosphatase 94 U/L (39-117); Anion Gap 17 (12-20); Aspartate Amino Transferase 23 U/L (5-37); Bilirubin Total 0.5 mg/dL (0.0-1.0); Blood Urea Nitrogen 6 mg/dL (9-16); Calcium 10.3 mg/dL (8.4-10.2); Carbon Dioxide 24 mmol/L (22-29); Chloride 100 mmol/L (96-108); Creatinine Clr Calc Pharmacy 136.8; Estimated Glomerular Filt Rate > 60; Glucose Fasting 156 mg/dL (60-99); Potassium 3.9 mmol/L (3.3-5.1); Sodium 137 mmol/L (135-145); Total Protein 7.7 g/dL (6.5-8.0)
[2023-02-13] MEDS: amLODIPine Besylate 5 MG TABLET PO (07:13)
[2023-02-13] MEDS: cloNIDine HCL 0.1 MG TABLET PO ×2 (07:13→20:06)
[2023-02-13 07:40] VITALS: BP 187/75; PULSE 65; RESP 20; TEMP 35.9; O2SAT 98
[2023-02-13 07:42] LABS: Platelet Count 134 X10*3/uL (160-400); White Blood Count 5.5 X10*3/uL (4.8-10.8)
[2023-02-13 07:43] LABS: SLIDE REVIEW VERIFIED
[2023-02-13 07:50] LABS: Glucose, Whole Blood 150 mg/dL (60-115)
[2023-02-13] MEDS: 0.9 % Sodium Chloride Flush 3 ML SYRINGE IVFLUSH ×2 (09:14→15:40)
[2023-02-13 11:38] VITALS: BP 125/65; PULSE 53; RESP 20; TEMP 36.1; O2SAT 95
[2023-02-13 11:58] LABS: Glucose, Whole Blood 166 mg/dL (60-115)
--- NOTE | 2023-02-13 14:41 | HO.PM.IMPN ---
Subjective Subjective Date of Service: 02/13/23 Interval History: Events from last night noted, patient received 10 mg of IM Zyprexa due to agitation, noted to be somnolent this morning ,arousable with verbal stimuli, patient wishes to be left alone refused breakfast and lunch. Review of Systems Unable to obtain due to mental status. Physical Exam Vital Signs: Vital Signs: Last Vital Signs Temp 96.3 F L 02/13/23 11:38 Pulse 53 02/13/23 11:38 Resp 20 02/13/23 11:38 BP 125/65 02/13/23 11:38 Pulse Ox 95 02/13/23 11:38 O2 Del Method Room Air 02/13/23 11:38 O2 Flow Rate 2 02/11/23 11:50 BMI result Body Mass Index 26.6 Const: Other: General somnolent,arousable,no acute distress. Neck no JVD. CVS regular rate rhythm, Respiratory lungs coarse breath sound, no respiratory distress, no wheeze, no rhonchi. Gastrointestinal abdomen soft, bowel sounds audible. Extremities no edema. Skin no rash Objective Data Active Medications Amlodipine Besylate (Amlodipine Besylate 5 Mg Tablet) 5 mg PO DAILY [facility]; Protocol Last Admin: 02/13/23 07:13 Dose: 5 mg Documented By: BRITTANI Clonidine HCl (Clonidine Hcl 0.1 Mg Tablet) 0.1 mg PO BID [facility]; Protocol Last Admin: 02/13/23 07:13 Dose: 0.1 mg Documented By: BRITTANI Dextrose (Dextrose 50 % 25 Gm/50 Ml Syringe) 25 gm IVPUSH Q15M PRN; Protocol PRN Reason: per Hypoglycemia Standing Ord. Docusate Sodium (Docusate Sodium 100 Mg/10 Ml Liquid) 100 mg PO DAILY [facility] Last Admin: 02/13/23 09:20 Dose: Not Given Documented By: MOO Non-Admin Reason: Patient Refused Enoxaparin Sodium (Enoxaparin Sodium 40 Mg/0.4 Ml Syringe) 40 mg SUBCUT Q24H [facility] Last Admin: 02/12/23 17:43 Dose: 40 mg Documented By: TOMMIE Famotidine (Famotidine 20 Mg Tablet) 20 mg PO BEDTIME [facility] Last Admin: 02/12/23 20:54 Dose: 20 mg Documented By: JUSTIN Glucose (Glucose Gel 15 Gm Gel..Gram.) 15 gm PO Q15M PRN; Protocol PRN Reason: per Hypoglycemia Standing Ord. Hydroxyzine HCl (Hydroxyzine Hcl 25 Mg Tablet) 25 mg PO BID PRN PRN Reason: Agitation Last Admin: 02/12/23 21:04 Dose: 25 mg Documented By: JUSTIN Cefepime HCl 2 gm/ Sodium (Chloride) 50 mls @ 100 mls/hr IV Q12H [facility] Last Infusion: 02/13/23 05:24 Dose: Infused Documented By: JUSTIN Insulin Human Lispro (Insulin Lispro 100 Unit/Ml 3 Ml Vial) 0 unit SUBCUT QIDACHS [facility]; Protocol Last Admin: 02/13/23 12:03 Dose: Not Given Documented By: MOO Non-Admin Reason: pt refusing lunch Lactulose (Lactulose 20 Gm/30 Ml Solution) 20 gm PO BID [facility] Last Admin: 02/13/23 09:20 Dose: Not Given Documented By: MOO Non-Admin Reason: Patient Refused Levetiracetam (Levetiracetam 500 Mg Tablet) 500 mg PO BID [facility] Last Admin: 02/13/23 09:21 Dose: Not Given Documented By: MOO Non-Admin Reason: Patient Refused Levetiracetam (Levetiracetam 250 Mg Tablet) 250 mg PO BID [facility] Last Admin: 02/13/23 09:21 Dose: Not Given Documented By: MOO Non-Admin Reason: Patient Refused Propranolol HCl (Propranolol Hcl 40 Mg Tablet) 40 mg PO TID [facility]; Protocol Last Admin: 02/13/23 14:36 Dose: Not Given Documented By: MOO Non-Admin Reason: Decreased Heart Rate Risperidone (Risperidone 2 Mg Tablet) 2 mg PO BID [facility] Last Admin: 02/13/23 09:21 Dose: Not Given Documented By: MOO Non-Admin Reason: Patient Refused Sodium Chloride (0.9 % Sodium Chloride Flush 3 Ml Syringe) 3 ml IVFLUSH QSHIFT [facility] Last Admin: 02/13/23 09:14 Dose: 3 ml Documented By: MOO Tamsulosin HCl (Tamsulosin Hcl 0.4 Mg Capsule) 0.4 mg PO BEDTIME [facility] Last Admin: 02/12/23 20:54 Dose: 0.4 mg Documented By: JUSTIN Labs 02/13/23 06:13 02/13/23 06:13 Labs: Laboratory Results - last 24 hr 02/12/23 02/12/23 02/13/23 16:27 20:18 06:13 MCV 88.7 MCH 29.9 MCHC 33.7 RDW 12.5 Plt Count 134 L MPV Not Reportable Immature Gran % (Auto) 0.2 Neut % (Auto) 41.2 L Lymph % (Auto) 41.1 H [place] % (Auto) 13.2 H Eos % (Auto) 3.9 Baso % (Auto) 0.4 Lymph # (Auto) 2.2 [place] # (Auto) 0.7 Eos # (Auto) 0.2 Baso # (Auto) 0.0 Abs Immat Gran (auto) 0.01 Absolute Neuts (auto) 2.3 Absolute Nucleated RBC 0.000 Nucleated RBC % (auto) 0.0 Smear Tech's Comments VERIFIED Anion Gap 17 Estim Creat Clear Calc 136.8 Estimated GFR > 60 POC Glucose 189 H 140 H Fasting Glucose 156 H Calcium 10.3 H Total Bilirubin 0.5 AST 23 ALT 19 Alkaline Phosphatase 94 Total Protein 7.7 Albumin 4.0 02/13/23 02/13/23 07:43 11:39 MCV MCH MCHC RDW Plt Count MPV Immature Gran % (Auto) Neut % (Auto) Lymph % (Auto) [place] % (Auto) Eos % (Auto) Baso % (Auto) Lymph # (Auto) [place] # (Auto) Eos # (Auto) Baso # (Auto) Abs Immat Gran (auto) Absolute Neuts (auto) Absolute Nucleated RBC Nucleated RBC % (auto) Smear Tech's Comments Anion Gap Estim Creat Clear Calc Estimated GFR POC Glucose 150 H 166 H Fasting Glucose Calcium Total Bilirubin AST ALT Alkaline Phosphatase Total Protein Albumin Microbiology Microbiology Results: Microbiology 02/10/23 15:44 Blood Culture - Preliminary Blood - Venous No growth after 48 hours. 02/10/23 14:38 Blood Culture - Preliminary Blood - Venous No growth after 48 hours. 02/10/23 16:18 Urine Culture - Final Urine Catheterized - Barger Catheter Assessment and Plan (1) UTI (urinary tract infection): Status: Acute (2) Acute respiratory failure with hypoxia: Status: Acute (3) Diabetes type 2, controlled: Status: Acute (4) Hypertension: Status: Acute Plan 53-year-old male well known to me from [facility] developed worsening shortness of breath over the last 48 hours. Presented to emergency room with sats in the 80s. Chest x-ray suggestive of congestive heart failure; urine with active sediment 1.UTI -urine culture less than 10,000, blood cultures x2 negative x 48 h,on IV cefepime D2 will DC antibiotics, transfer back to [facility] once patient more awake and tolerating diet. 2.Acute respiratory failure with hypoxia -hypoxia resolved now 97% on room air. -BNP unremarkable, chest x-ray showed no pneumonia, no evidence of CHF 3.Diabetes type 2 -blood sugars around 150,on diabetic diet , lispro correctional scale, Lantus and metformin on hold. Will resume once patient taking diet 4.Hypertension -blood pressure improved, continue home medications amlodipine, propranolol and clonidine monitor blood pressure closely. 5.Mood disorder continue home medication. Received IM Zyprexa last night due to agitation, will try to avoid antipsychotics due to sedation, will continue risperidone and as needed hydroxyzine Lovenox Full code Requires close clinical monitoring due to somnolence related to use of antipsychotics . Time Spent With Patient Time: Total time managing care of this patient today ____ minutes. Quality Stroke Does the patient have a stroke diagnosis?: No VTE Prior VTE?: No VTE Risk Level:: Medical - moderate - high VTE Device Contraindication: Treatment Not Indicated VTE Drug Contraindication: N/A - Med Ordered
[2023-02-13 15:38] VITALS: BP 108/63; PULSE 81; RESP 18; TEMP 36.6; O2SAT 95
[2023-02-13] MEDS: Acetaminophen 325 MG TABLET 650 MG PO ×2 (15:39→20:07)
[2023-02-13 16:21] LABS: Glucose, Whole Blood 174 mg/dL (60-115)
[2023-02-13] MEDS: Insulin Lispro 100 UNIT/ML 3 ML VIAL SUBCUT (17:02)
[2023-02-13] MEDS: Enoxaparin Sodium 40 MG/0.4 ML SYRINGE SUBCUT (17:52)
[2023-02-13] MEDS: Propranolol HCL 40 MG TABLET PO (20:06)
[2023-02-13] MEDS: risperiDONE 2 MG TABLET PO (20:06)
[2023-02-13] MEDS: Zolpidem Tartrate 5 MG TABLET PO (20:07)
[2023-02-13] MEDS: levETIRAcetam 250 MG TABLET PO (20:07)
[2023-02-13] MEDS: levETIRAcetam 500 MG TABLET PO (20:07)
[2023-02-13] MEDS: Lactulose 20 GM/30 ML SOLUTION PO (20:07)
[2023-02-13] MEDS: Famotidine 20 MG TABLET PO (20:07)
[2023-02-13] MEDS: Tamsulosin HCL 0.4 MG CAPSULE PO (20:07)
[2023-02-14] VITALS: BP 127/66; PULSE 61; RESP 20; TEMP 36.1
[2023-02-14] MEDS: 0.9 % Sodium Chloride Flush 3 ML SYRINGE IVFLUSH ×2 (00:22→09:05)
[2023-02-14 03:39] VITALS: BP 132/63; PULSE 63; RESP 20; TEMP 36.1; O2SAT 95
[2023-02-14 07:21] VITALS: BP 118/56; PULSE 65; RESP 20; TEMP 36.3; O2SAT 99
[2023-02-14 07:35] LABS: Glucose, Whole Blood 143 mg/dL (60-115)
[2023-02-14] MEDS: Acetaminophen 325 MG TABLET 650 MG PO ×2 (09:05→14:26)
[2023-02-14] MEDS: Aspirin 81 MG TAB.CHEW PO (09:07)
[2023-02-14] MEDS: cloNIDine HCL 0.1 MG TABLET PO (09:08)
[2023-02-14] MEDS: risperiDONE 2 MG TABLET PO (09:08)
[2023-02-14] MEDS: Propranolol HCL 40 MG TABLET PO ×2 (09:09→14:26)
[2023-02-14] MEDS: amLODIPine Besylate 5 MG TABLET PO (09:09)
[2023-02-14] MEDS: levETIRAcetam 500 MG TABLET PO (09:11)
[2023-02-14] MEDS: levETIRAcetam 250 MG TABLET PO (09:11)
[2023-02-14 11:15] VITALS: BP 164/72; PULSE 80; RESP 20; TEMP 36.5; O2SAT 98
[2023-02-14 11:22] LABS: Glucose, Whole Blood 208 mg/dL (60-115)
--- NOTE | 2023-02-14 11:39 | PM.DS ---
DS: Providers Provider Date of Service: 02/14/23 Date of admission: 02/10/23 17:02 Primary care physician: Casey Everett DO DS: Diagnosis Discharge Diagnosis (1) UTI (urinary tract infection): Status: Acute (2) Acute respiratory failure with hypoxia: Status: Acute (3) Diabetes type 2, controlled: Status: Acute (4) Hypertension: Status: Acute DS: Summary Hospital Course Hospital Course: History of present illness: Date of Service: 02/10/23 Chief Complaint: Hypoxia 53-year-old resident of [facility] [place] well known to me presents with worsening shortness of breath over the course of the last 48 hours. Initially he examined rhonchorous with sats that were correctable to 92% with oxygen. Over the course of the last 12 hours he deteriorated with sats notably in the 80s. He presented to the ER with low-grade temp and was treated with sepsis protocol included volume resuscitation. Urine with active sediment. Received 2 g of cefepime in ER. Will be admitted for treatment of same. Hospital course: 53-year-old male from [facility] developed worsening shortness of breath over the last 48 hours, Presented to emergency room with sats in the 80s. Chest x-ray showed no pneumonia but showed increased bilateral pulmonary vascularity, suggestive of congestive heart failure, patient admitted to [facility] with a diagnosis of acute hypoxia respiratory failure with hypoxia, patient clinically had no evidence of CHF with normal BNP patient oxygenation improved rapidly, currently 97% on room air, however noted to have positive urinalysis therefore was placed on IV cefepime, however both urine and blood cultures came back negative therefore antibiotic discontinued patient is now tolerating diet, with no evidence of choking or coughing, therefore being transferred back to [facility] case discussed with patient's provided Dr. Everett . In regard to Diabetes type 2 patient was placed on diabetic diet will recommend to resume home medications with close blood sugar monitoring. Hypertension continue home medications amlodipine, propranolol and clonidine monitor blood pressure closely. Mood disorder he received IM Zyprexa x1 due to agitation, next day he was noted to be more somnolent but this morning patient is awake tolerating diet recommend to continue all home medications Time Spent with Patient Time attestation: Total time managing care of this patient today ____ minutes. Discharge coordination time: Greater than 30 minutes Quality: Safe Use of Opioids Does Pt have an Active Cancer Diagnosis on the Problem List?: No Quality: Stroke Does the patient have a stroke diagnosis?: No Physical Exam Vital Signs: Vital Signs: Last Vital Signs Temp 97.7 F 02/14/23 11:15 Pulse 80 02/14/23 11:15 Resp 20 02/14/23 11:15 BP 164/72 H 02/14/23 11:15 Pulse Ox 98 02/14/23 11:15 O2 Del Method Room Air 02/14/23 11:15 O2 Flow Rate 2 02/11/23 11:50 BMI result Body Mass Index 26.6 Const: Other: General no acute distress. Neck no JVD. CVS regular rate rhythm, Respiratory lungs clear, no respiratory distress, no wheeze, no rhonchi. Gastrointestinal abdomen soft, bowel sounds audible. Extremities no edema. Skin no rash DS: Data Data Completed and Pending Labs on day of discharge: Laboratory Results - last 24 hr 02/13/23 02/13/23 02/14/23 11:39 16:12 07:23 POC Glucose 166 H 174 H 143 H 02/14/23 11:18 POC Glucose 208 H Preliminary micro results at discharge 02/10/23 15:44 Blood Culture - Preliminary Blood - Venous No growth after 48 hours. 02/10/23 14:38 Blood Culture - Preliminary Blood - Venous No growth after 48 hours. Discharge Plan Discharge Anticipated Discharge Date/Time: 02/14/23 11:33 Patient Disposition: Xfer LT Discharge Diagnosis: Acute respiratory failure with hypoxia resolved Referrals: [facility] [Outside] - 1 Week Casey Everett DO [Primary Care Provider] - 1 Week Discharge Medications: Continued atorvastatin 80 mg Tablet 80 mg PO BEDTIME clonidine HCl 0.1 mg Tablet 0.1 mg PO BID acetaminophen 325 mg Tablet 650 mg PO TID acetaminophen 160 mg/5 mL Liquid 650 mg PO Q6H PRN (Reason: Fever Or Pain) amlodipine 5 mg Tablet 5 mg PO DAILY aspirin 81 mg Tablet,Chewable 81 mg PO DAILY Acidophilus Capsule 1 cap PO BID Rx Instructions: x 14 days, finish 02/24/23 docusate sodium 50 mg/5 mL Liquid 100 mg PO DAILY sennosides [senna] 8.6 mg Tablet 8.6 mg PO DAILY PRN (Reason: Constipation) insulin glargine [Lantus U-100 Insulin] 100 unit/mL solution 22 unit subcut BEDTIME sodium chloride 1 gram Tablet 1,000 mg PO TID miconazole nitrate 2 % Powder 1 appl TOPICAL BID risperidone [Risperdal] 2 mg Tablet 2 mg PO BID propranolol 40 mg Tablet 40 mg PO TID famotidine 20 mg Tablet 20 mg PO BEDTIME tamsulosin 0.4 mg Capsule 0.4 mg PO BEDTIME metformin 1,000 mg Tablet 1,000 mg PO BID hydroxyzine HCl 25 mg Tablet 25 mg PO BID PRN (Reason: Agitation) levetiracetam 750 mg tablet 750 mg PO BID insulin lispro 100 unit/mL Insulin Pen 1 sliding scale dose SUBCUT USEASDIRECTD Protocol: Insulin Correction Scale Less than or equal to 110 ---- Give (units): 0 111 to 150 Give (units): 0 151 to 200 Give (units): 2 201 to 250 Give (units): 4 251 to 300 Give (units): 6 301 to 350 Give (units): 8 Greater than 350 Give (units): 10 Call MD if Blood Glucose > : 350 lactulose 10 gram/15 mL solution 30 ml PO BID insulin glargine [Lantus Solostar U-100 Insulin] 100 unit/mL (3 mL) Insulin Pen 14 unit SUBCUT QAM melatonin 10 mg Tablet 10 mg PO BEDTIME Discontinued prednisone 20 mg Tablet See Taper PO DAILY Taper: Prednisone 60 mg daily for 2 Days and 0 Hour 40 mg daily for 3 Days and 0 Hour 20 mg daily for 3 Days and 0 Hour doxycycline monohydrate 100 mg Tablet 100 mg PO BID Rx Instructions: x 10 days, finish 02/20/23 Discharge Orders: Discharge Order (Routine); Ordered 02/14/23 Ordered By: Alvin Howard Diet: Diabetic diet Activity on Discharge: As tolerated Stand Alone Forms: Patient Portal Discharge page Care Plan Goals: Hypoxia resolved, chest x-ray showed no infection, urine culture and blood culture are negative, patient hemodynamically stable No antibiotics recommended Continue all home medications it. Health Concerns: Diabetic diet, Monitor blood sugars jacque. Plan of Treatment: Follow-up with primary care physician. Assessment: as above.
--- NOTE | 2023-02-14 11:47 | MHC.CM.PN ---
Patient has been medically cleared for dc today to return to LTC. Patient will return to LTC @ [facility] today at 4:30 PM, via [facility]. CM spoke with Mother/HCP/Lesley at [phone] informed her of the dc plan.
[2023-02-14] MEDS: Insulin Lispro 100 UNIT/ML 3 ML VIAL SUBCUT (11:56)
== END 2023-02-14 16:24 | DRG 720 ==
LOC: HO.ED 14:44 → HO.EDOVER 17:14 → HO.IMC 17:19
PROVIDERS: Admitting Provider Hospitalist; Emergency Provider Student in an Organized Health Care Education/Training Program; PCP Hospitalist; Visit Provider Hospitalist
DX: A41.9 Sepsis, unspecified organism (principal); J96.01 Acute respiratory failure with hypoxia; N17.9 Acute kidney failure, unspecified; F39 Unspecified mood [affective] disorder; D64.9 Anemia, unspecified; E11.9 Type 2 diabetes mellitus without complications; I10 Essential (primary) hypertension; N39.0 Urinary tract infection, site not specified; Z66 Do not resuscitate; Z20.822 Contact with and (suspected) exposure to COVID-19; Z88.0 Allergy status to penicillin; Z79.4 Long term (current) use of insulin; Z79.82 Long term (current) use of aspirin; Z79.84 Long term (current) use of oral hypoglycemic drugs; Z79.899 Other long term (current) drug therapy
CPT/HCPCS: 36415; 71045; 80053; 81001; 82803; 82947; 83605; 83880; 85025; 85610; 87040; 87086; 87502; 87635; 92950; 93005; 99284; C1758; J0692; J1650; J2060; J2359

== ENCOUNTER → 2023-02-10 17:02 | Outpatient (BNV) | payer MEDICAID, SELFPAY | PROVIDERS: Admitting Provider Hospitalist; Emergency Provider Student in an Organized Health Care Education/Training Program; PCP Hospitalist; Visit Provider Hospitalist | DX: N39.0 Urinary tract infection, site not specified (principal); J96.01 Acute respiratory failure with hypoxia; E11.9 Type 2 diabetes mellitus without complications; Z79.4 Long term (current) use of insulin; I10 Essential (primary) hypertension | CPT/HCPCS: 99223; 99233; 99239 ==

== ENCOUNTER 2023-03-02 10:20 | Outpatient (REF) | payer MEDICAID, SELFPAY | END 2023-03-02 10:21 | disposition home or self-care (01) | LOC: HO.XRAY 10:20 | PROVIDERS: PCP Hospitalist; Visit Provider Hospitalist | DX: Z13.89 Encounter for screening for other disorder (principal) ==

== ENCOUNTER 2023-03-04 09:26 | Outpatient (REF) | payer MEDICAID, SELFPAY ==
--- NOTE | ~2023-03-04 | XR_ITS ---
EXAMINATION: XR CHEST CLINICAL INFORMATION: Productive cough, rule out pneumonia COMPARISON: 02/10/2023 TECHNIQUE: 2 views of the chest were obtained. FINDINGS: No significant abnormality is noted involving the heart, lungs, mediastinum, bony thorax or soft tissues. XR/XR chest 2V IMPRESSION: Unremarkable examination without interval change.
== END 2023-03-04 09:27 | disposition home or self-care (01) ==
LOC: HO.XRAY 09:26
PROVIDERS: PCP Hospitalist; Visit Provider Hospitalist
DX: R05.9 Cough, unspecified (principal)
CPT/HCPCS: 71046

== ENCOUNTER 2023-12-23 12:21 | Emergency (ER) | payer MEDICARE, MEDICAID, SELFPAY ==
--- NOTE | ~2023-12-23 | CT_ITS ---
EXAMINATION: CT HEAD WITHOUT CONTRAST CLINICAL INFORMATION: Mental status changes. COMPARISON: None. TECHNIQUE: Contiguous axial imaging was performed from the skullbase to vertex without intravenous administration of contrast. This CT examination was performed using dose optimization techniques as appropriate, variously including the following: *Automated exposure control *Adjustment of mA and/or kV according to patient size (this includes techniques or standardized protocols for targeted exams where dose is matched to indication/reason for exam; i.e. extremities or head) *Use of iterative reconstruction technique DLP: 696 mGy-cm. FINDINGS: There is severe diffuse brain parenchymal volume loss for patient age with ex vacuo dilatation of the ventricles, more so on the right side. 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 Focal low-density change noted in the left temporal pole anteroinferiorly. There are areas of low-density change in the anterior frontal lobes bilaterally as well. Geographic area of hypodensity in the left frontal lobe involving the cortical carbajal matter and white matter from a presumed chronic infarct no acute intracranial hemorrhage visible. No mass effect or midline shift is seen. No extra-axial fluid collection identified. The osseous structures and soft tissues are normal. The mastoid air cells are well aerated. There is significant mucosal thickening in the ethmoid sinuses with fluid layering in the frontal sinus ostia bilaterally. Milder mucosal thickening visible in both sphenoid sinus cavities. There is complete mucosal opacification of the left maxillary sinus with high density secretions. Moderate right maxillary sinus mucosal thickening and dependent fluid level noted. CT/CT head/brain wo IV con IMPRESSION: No acute intracranial hemorrhage. Significant brain parenchymal volume loss and ex vacuo dilatation of the ventricles for patient age. Extensive patchy geographic areas of low density in the brain parenchyma which suggests chronic territorial infarcts. Given distribution of some imaging findings, the chronic sequela of superimposed prior traumatic brain injury cannot be ruled out; clinically correlate. The possibility of a focal acute ischemic process cannot be ruled out given the extent of imaging abnormalities. Extensive paranasal sinus disease with chronic-appearing mucosal opacification of the left maxillary sinus. Correlate for any acute symptomatology. Electronically signed by: Nitin Diggs MD 12/23/2023 03:27 PM EDT
--- NOTE | ~2023-12-23 | XR_ITS ---
EXAMINATION: XR CHEST CLINICAL INFORMATION: Chest pain. COMPARISON: Chest radiograph 03/04/2023. TECHNIQUE: Frontal view of the chest was obtained. FINDINGS: Stable appearance of the cardiomediastinal silhouette, including unchanged enlargement of the left greater than right pulmonary arteries which could indicate underlying pulmonary hypertension. No focal consolidation, pleural effusion or pneumothorax. No evidence of pulmonary edema. No acute osseous findings. XR/XR chest 1V IMPRESSION: 1. No acute cardiopulmonary findings. 2. Stable enlargement of the pulmonary arteries which could indicate underlying pulmonary hypertension. Electronically signed by: Enid Ibrahim MD 12/23/2023 02:54 PM EDT
--- NOTE | 2023-12-23 12:31 | ECG_ITS ---
Test Reason : CHEST PAIN Blood Pressure : / mmHG Vent. Rate : 065 BPM Atrial Rate : 065 BPM P-R Int : 154 ms QRS Dur : 140 ms QT Int : 432 ms P-R-T Axes : 037 -65 121 degrees QTc Int : 449 ms Normal sinus rhythm Right bundle branch block Left anterior fascicular block Bifascicular block Abnormal ECG When compared with ECG of 10-FEB-2023 14:14, Vent. rate has decreased BY 34 BPM Borderline criteria for Lateral infarct are no longer Present Nonspecific T wave abnormality, worse in Inferior leads T wave inversion now evident in Lateral leads Referred By: Scottie Jansen Electronically Signed By:EVON PENNY
--- NOTE | 2023-12-23 12:47 | ED_ITS ---
HPI - Weakness General Chief complaint: General Medical Stated complaint: alerted, hypoglycemic, hypothermic from SNF Time Seen by Provider: 12/23/23 12:21 Source: patient and EMS Mode of arrival: EMS History of Present Illness HPI Narrative: history is obtained via records from the senior care the patient is unable to give any history ,this is 53 years old male presented to the emergency department with a chief complaint of hypothermia and hypoglycemia. Patient is a resident of [facility] [place]. He has history of traumatic subarachnoid bleed, type 2 diabetes he has no verbal at baseline MD Complaint: generalized weakness Onset (ago): hour(s) (2) Location: generalized Migration: none Context: new medication Related Data Home Medications ?Medication ?Instructions ?Recorded ?Confirmed Lactobacillus acidophilus 1 cap PO BID 02/10/23 02/10/23 (Acidophilus capsule) acetaminophen 160 mg/5 mL oral 650 mg PO Q6H PRN Fever Or Pain 02/10/23 02/10/23 liquid acetaminophen 325 mg tablet 650 mg PO TID back pain 02/10/23 02/10/23 amlodipine 5 mg tablet 5 mg PO DAILY 02/10/23 02/10/23 aspirin 81 mg chewable tablet 81 mg PO DAILY 02/10/23 02/10/23 atorvastatin 80 mg tablet 80 mg PO BEDTIME 02/10/23 02/10/23 clonidine HCl 0.1 mg tablet 0.1 mg PO BID 02/10/23 02/10/23 docusate sodium 50 mg/5 mL oral 100 mg PO DAILY 02/10/23 02/10/23 liquid famotidine 20 mg tablet 20 mg PO BEDTIME 02/10/23 02/10/23 hydroxyzine HCl 25 mg tablet 25 mg PO BID PRN Agitation 02/10/23 02/10/23 insulin glargine 100 unit/mL (3 14 unit subcut QAM 02/10/23 02/10/23 mL) subcutaneous pen (Lantus Solostar U-100 Insulin) insulin glargine 100 unit/mL 22 unit subcut BEDTIME 02/10/23 02/10/23 subcutaneous solution (Lantus U-100 Insulin) insulin lispro 100 unit/mL 1 sliding scale dose subcut 02/10/23 02/10/23 subcutaneous pen USEASDIRECTD lactulose 10 gram/15 mL oral 30 ml PO BID 02/10/23 02/10/23 solution levetiracetam 750 mg tablet 750 mg PO BID 02/10/23 02/10/23 melatonin 10 mg tablet 10 mg PO BEDTIME 02/10/23 02/10/23 metformin 1,000 mg tablet 1,000 mg PO BID 02/10/23 02/10/23 miconazole nitrate 2 % topical 1 appl topical BID 02/10/23 02/10/23 powder propranolol 40 mg tablet 40 mg PO TID 02/10/23 02/10/23 risperidone 2 mg tablet (Risperdal) 2 mg PO BID 02/10/23 02/10/23 sennosides 8.6 mg tablet (senna) 8.6 mg PO DAILY PRN Constipation 02/10/23 02/10/23 sodium chloride 1 gram tablet 1,000 mg PO TID 02/10/23 02/10/23 tamsulosin 0.4 mg capsule 0.4 mg PO BEDTIME 02/10/23 02/10/23 Allergies Allergy/AdvReac Type Severity Reaction Status Date / Time Penicillins Allergy Unknown Verified 12/23/23 12:54 valproic acid Allergy Unknown Verified 12/23/23 12:54 Review of Systems 2 Eyes: Eyes: Reports no additional eye complaints ENT: Reports system reviewed and no additional complaints, except as documented Cardiovascular: Cardiovascular: Reports no additional cardiovascular complaints PMFSH Past Medical History Attestation statement: The following information was validated with the patient. Source: unable to obtain Medical History Hypertension Diabetes type 2, controlled Social History Social History Household Members: None Housing: Residential Unable to assess alcohol history related to: Unable to respond Patient Tobacco Use Status: Tobacco use Unknown Smoked in Last 30 Days: No Use of substances other than those prescribed or required for medical reasons: No Advance Directives: Yes Advance Directives on File: Yes Advance Directives Date on File: 02/10/23 Do you have a plan to hurt others: No Plan service: No Physical Exam 2 Vital Signs: Vital Signs: Last Vital Signs Temp 97.4 F 12/23/23 15:03 Pulse 60 12/23/23 15:03 Resp 10 L 12/23/23 15:03 BP 127/52 L 12/23/23 15:03 Pulse Ox 100 12/23/23 15:03 O2 Del Method Room Air 12/23/23 15:03 BMI result Body Mass Index 24.9 Const: General: cooperative Nutritional Appearance: average body habitus Orientation/consciousness: patient oriented x3 Limitations: no limitations HEENT: Head: Yes normal to inspection Ears: hearing grossly normal bilaterally General nose exam: Normal external nose present Face and sinus: Yes normal facial exam Mouth: Normal oral and palatal mucosa present Teeth and gingiva: dentition normal Throat: Yes posterior oropharynx normal Neck: Neck: Yes normal visual inspection Resp: Effort & Inspection: normal respiratory effort Auscultation: clear to auscultation bilaterally Cardio: Rate: regular rate Rhythm: regular rhythm GI: Inspection: Yes normal to inspection Palpation (GI): Soft to palpation Auscultation: normal bowel sounds Skin: General skin exam: no rashes or lesions noted Lesions: no lesions Rashes: no rashes Neuro: General: patient oriented x3 Course Reevaluation(s) Reevaluation #1: Patient is clinically stable temperature is 97.5, he is not hypoglycemic, labs okay I spoke with his primary care physician Dr Everett Time: 14:01 Medical Decision Making Medical Decision Making MDM Narrative: Patient presented with possible hypoglycemia and hypothermia will check labs vital sign reassess Differential Diagnosis Differential Diagnoses: The differential diagnosis associated with the presentation includes Viral syndrome/sepsis/hypoglycemia Admission/Observation Consideration of admission/observation: Escalation of care including admission/observation considered Consult Healthcare Provider Management of the patient was discussed with: Maintenance Service Technician dr Everett Lab Data MDM Lab Attestation statement: I reviewed the patient's lab results. 12/23/23 12:50 12/23/23 12:50 Labs: Lab Results 12/23/23 12/23/23 Range/Units 12:27 12:50 WBC 6.6 (4.8-10.8) X10*3/uL RBC 4.13 L (4.60-5.80) X10*6/uL Hgb 12.7 L (14.0-18.0) g/dl Hct 36.5 L (42.0-52.0) % MCV 88.4 (80.0-98.0) fL MCH 30.8 (27.0-33.0) pg MCHC 34.8 (31.0-36.0) g/dl RDW 12.6 (11.0-16.0) % Plt Count 156 L (160-400) X10*3/uL MPV 8.6 L (9.4-12.4) fL Immature Gran % (Auto) 0.2 (0.0-0.4) % Neut % (Auto) 48.1 (45-73) % Lymph % (Auto) 38.2 (20-40) % [place] % (Auto) 10.5 (2-11) % Eos % (Auto) 2.7 (0-4) % Baso % (Auto) 0.3 (0-2) % Lymph # (Auto) 2.5 (1.2-4.9) X10*3/uL [place] # (Auto) 0.7 (0.1-1.2) X10*3/uL Eos # (Auto) 0.2 (0.0-0.4) X10*3/uL Baso # (Auto) 0.0 (0.0-0.2) X10*3/uL Abs Immat Gran (auto) 0.01 (0.00-0.03) X10*3/uL Absolute Neuts (auto) 3.2 (2.0-8.3) x10*3/uL Absolute Nucleated RBC 0.000 (0.0-0.012) X10*3/uL Nucleated RBC % (auto) 0.0 (0.0-0.2) /100WBC Sodium 137 (135-145) mmol/L Potassium 4.6 (3.3-5.1) mmol/L Chloride 104 (96-108) mmol/L Carbon Dioxide 25 (22-29) mmol/L Anion Gap 13 (12-20) BUN 13 (9-16) mg/dL Creatinine 0.62 (0.5-1.4) mg/dL Estim Creat Clear Calc 134.6 Estimated GFR > 60 POC Glucose 118 H (60-115) mg/dL Random Glucose 131 H (60-115) mg/dL Calcium 9.8 (8.4-10.2) mg/dL Total Bilirubin 0.2 (0.0-1.0) mg/dL AST 22 (5-37) U/L ALT 21 (0-40) U/L Alkaline Phosphatase 72 (39-117) U/L Troponin I High Sens 4.1 (<3.5-35.0) ng/L Total Protein 7.4 (6.5-8.0) g/dL Albumin 4.0 (3.5-5.0) g/dL Radiology Impression Discussion of test interpretation with radiology: I have reviewed the radiologist's reading. Independent Historian Clinical information obtained from an independent historian. History obtained from or confirmed by: Other (Residential record) External Record Review SENIOR CARE RECORD Chronic Conditions TBI Discharge Plan Discharge Clinical Impression: Hypoglycemia Hypothermia Qualifiers: Encounter type: initial encounter Qualified Code(s): T68.XXXA - Hypothermia, initial encounter Patient Disposition: [facility] Swing Bed Instructions: Acute Hypothermia (ED) Additional Instructions: YOUR TEMPERATURE WAS NORMAL HERE YOUR BLOOD SUGAR WAS NORMAL FOLLOW-UP WITH YOUR PRIMARY CARE PHYSICIAN Prescriptions: No Action atorvastatin 80 mg Tablet 80 mg PO BEDTIME clonidine HCl 0.1 mg Tablet 0.1 mg PO BID acetaminophen 325 mg Tablet 650 mg PO TID acetaminophen 160 mg/5 mL Liquid 650 mg PO Q6H PRN (Reason: Fever Or Pain) amlodipine 5 mg Tablet 5 mg PO DAILY aspirin 81 mg Tablet,Chewable 81 mg PO DAILY Acidophilus Capsule 1 cap PO BID Rx Instructions: x 14 days, finish 02/24/23 docusate sodium 50 mg/5 mL Liquid 100 mg PO DAILY sennosides [senna] 8.6 mg Tablet 8.6 mg PO DAILY PRN (Reason: Constipation) insulin glargine [Lantus U-100 Insulin] 100 unit/mL solution 22 unit subcut BEDTIME sodium chloride 1 gram Tablet 1,000 mg PO TID miconazole nitrate 2 % Powder 1 appl TOPICAL BID risperidone [Risperdal] 2 mg Tablet 2 mg PO BID propranolol 40 mg Tablet 40 mg PO TID famotidine 20 mg Tablet 20 mg PO BEDTIME tamsulosin 0.4 mg Capsule 0.4 mg PO BEDTIME metformin 1,000 mg Tablet 1,000 mg PO BID hydroxyzine HCl 25 mg Tablet 25 mg PO BID PRN (Reason: Agitation) levetiracetam 750 mg tablet 750 mg PO BID insulin lispro 100 unit/mL Insulin Pen 1 sliding scale dose SUBCUT USEASDIRECTD Protocol: Insulin Correction Scale Less than or equal to 110 ---- Give (units): 0 111 to 150 Give (units): 0 151 to 200 Give (units): 2 201 to 250 Give (units): 4 251 to 300 Give (units): 6 301 to 350 Give (units): 8 Greater than 350 Give (units): 10 Call MD if Blood Glucose > : 350 lactulose 10 gram/15 mL solution 30 ml PO BID insulin glargine [Lantus Solostar U-100 Insulin] 100 unit/mL (3 mL) Insulin Pen 14 unit SUBCUT QAM melatonin 10 mg Tablet 10 mg PO BEDTIME Print Language: Cypriot
[2023-12-23 12:48] VITALS: BP 129/61; BP 130/62; PULSE 62; PULSE 67; RESP 16; TEMP 36.4; O2SAT 96; O2SAT 97; BMI 24.9
[2023-12-23 12:54] LABS: MANUAL DIFF FLAG NO
[2023-12-23 12:56] LABS: Basophils Percent Auto 0.3 % (0-2); Eosinophils Absolute Auto 0.2 X10*3/uL (0.0-0.4); Eosinophils Percent Auto 2.7 % (0-4); Hematocrit 36.5 % (42.0-52.0); Hemoglobin 12.7 g/dl (14.0-18.0); Imm Gran Abs Auto 0.01 X10*3/uL (0.00-0.03); Imm Gran Pct Auto 0.2 % (0.0-0.4); Lymphocytes Absolute Auto 2.5 X10*3/uL (1.2-4.9); Lymphocytes Percent Auto 38.2 % (20-40); Mean Corpuscular HGB Conc 34.8 g/dl (31.0-36.0); Mean Corpuscular Hemoglobin 30.8 pg (27.0-33.0); Mean Corpuscular Volume 88.4 fL (80.0-98.0); Mean Platelet Volume 8.6 fL (9.4-12.4); Monocytes Absolute Auto 0.7 X10*3/uL (0.1-1.2); Monocytes Percent Auto 10.5 % (2-11); Neutrophils Absolute Auto 3.2 x10*3/uL (2.0-8.3); Neutrophils Percent Auto 48.1 % (45-73); Platelet Count 156 X10*3/uL (160-400); Red Blood Count 4.13 X10*6/uL (4.60-5.80); Red Cell Distribution Width 12.6 % (11.0-16.0); White Blood Count 6.6 X10*3/uL (4.8-10.8)
--- NOTE | 2023-12-23 12:56 | PC.NURSE ---
Rectal temp 97.5, POC 118. MD Jansen aware
[2023-12-23 13:01] LABS: Glucose, Whole Blood 118 mg/dL (60-115)
[2023-12-23 13:27] LABS: Alanine Aminotransferase 21 U/L (0-40); Alkaline Phosphatase 72 U/L (39-117); Anion Gap 13 (12-20); Aspartate Amino Transferase 22 U/L (5-37); Bilirubin Total 0.2 mg/dL (0.0-1.0); Blood Urea Nitrogen 13 mg/dL (9-16); Calcium 9.8 mg/dL (8.4-10.2); Carbon Dioxide 25 mmol/L (22-29); Chloride 104 mmol/L (96-108); Creatinine Clr Calc Pharmacy 134.6; Estimated Glomerular Filt Rate > 60; Glucose Random 131 mg/dL (60-115); Potassium 4.6 mmol/L (3.3-5.1); Sodium 137 mmol/L (135-145); Total Protein 7.4 g/dL (6.5-8.0)
[2023-12-23 13:34] LABS: Troponin-I High Sensitivity 4.1 ng/L (<3.5-35.0)
[2023-12-23 15:03] VITALS: BP 127/52; PULSE 60; RESP 10; TEMP 36.3; O2SAT 100
[2023-12-23 17:21] VITALS: BP 156/62; PULSE 72; RESP 15; TEMP 36.6; O2SAT 99
[2023-12-23 19:44] VITALS: BP 166/71; PULSE 98; RESP 13; TEMP 36.5; O2SAT 96
== END 2023-12-23 21:09 | disposition swing bed (61) ==
PROVIDERS: Emergency Provider Emergency Medicine; PCP Hospitalist
DX: E11.649 Type 2 diabetes mellitus with hypoglycemia without coma (principal); T68.XXXA Hypothermia, initial encounter; X31.XXXA Exposure to excessive natural cold, initial encounter; I10 Essential (primary) hypertension; Z87.820 Personal history of traumatic brain injury; Z79.02 Long term (current) use of antithrombotics/antiplatelets; Z79.4 Long term (current) use of insulin; Z79.899 Other long term (current) drug therapy; Z79.82 Long term (current) use of aspirin; Z79.84 Long term (current) use of oral hypoglycemic drugs
CPT/HCPCS: 36415; 70450; 71045; 80053; 82947; 84484; 85025; 93005; 99284; 99285

== ENCOUNTER 2024-05-28 15:02 | Inpatient (IN) | payer MEDICARE, MEDICAID, SELFPAY ==
[2024-05-28] VITALS (8 sets, daily range): BP systolic 88–156; BP diastolic 46–64; PULSE 78–102; RESP 16–22; TEMP 37.3–38.7; O2SAT 95–98; BMI 27.9
--- NOTE | ~2024-05-28 | CT_ITS ---
CLINICAL HISTORY: sob CT angiography chest with contrast. 3D Postprocessing. Comparison: None Findings: The heart is normal size. RV/LV ratio is normal. The thoracic aorta is normal caliber. No pulmonary artery filling defects. The visualized thyroid and mediastinum are unremarkable. Moderate patchy consolidation of the right middle and lower lobe. Moderate fluid distention of the stomach. No acute fractures. IMPRESSION: 1. No pulmonary embolus. 2. Moderate patchy consolidation of the right middle and lower lobe may represent aspiration or multifocal pneumonia. This document has been electronically signed by: Kimberly Rangel MD on 05/28/2024 22:39:22
--- NOTE | ~2024-05-28 | XR_ITS ---
EXAMINATION: XR CHEST CLINICAL INFORMATION: SOB COMPARISON: None available. TECHNIQUE: Frontal view of the chest was obtained. FINDINGS: Cardiac, hilar, and mediastinal contours are normal. Lungs are clear bilaterally. No pneumothorax or pleural effusion. No focal soft tissue or osseous abnormality. XR/XR chest 1V IMPRESSION: No active pulmonary disease. Electronically signed by: Stanley Urrutia MD 05/28/2024 04:25 PM [facility]
--- NOTE | ~2024-05-28 | CT_ITS ---
CLINICAL HISTORY: hx of ams CT head without contrast Comparison: CT/SR - CT HEAD/BRAIN WO IV CON - 12/23/23 14:36 EDT Findings: Redemonstration of bilateral cerebral hemisphere areas of encephalomalacia and gliosis, right more than left consistent with chronic infarcts. Bilateral frontal and temporal pole hypodensities may also represent prior contusions. No new areas of acute territorial infarct or intracranial hemorrhage. Ex vacuo dilation of the right lateral ventricle occipital horn. Redemonstration of complete opacification of the left maxillary sinus, remainder of the paranasal sinuses and bilateral mastoid air cells are clear. The orbits are unremarkable. There is no acute fracture. IMPRESSION: 1. No acute intracranial findings. 2. Unchanged extensive patchy areas of encephalomalacia/gliosis of the bilateral cerebral hemispheres, right more than left. This document has been electronically signed by: Kimberly Rangel MD on 05/28/2024 22:35:46
--- NOTE | 2024-05-28 15:21 | ECG_ITS ---
Test Reason : sob Blood Pressure : */* mmHG Vent. Rate : 78 BPM Atrial Rate : 78 BPM P-R Int : 156 ms QRS Dur : 136 ms QT Int : 380 ms P-R-T Axes : 51 -84 64 degrees QTcB Int : 433 ms Normal sinus rhythm Right bundle branch block Left anterior fascicular block Bifascicular block Possible Lateral infarct , age undetermined Abnormal ECG When compared with ECG of 23-Dec-2023 12:47, Borderline criteria for Lateral infarct are now Present Nonspecific T wave abnormality no longer evident in Inferior leads T wave inversion no longer evident in Lateral leads Referred By: Bhakti Kennedy Electronically Signed By: Cesar Roca
--- NOTE | 2024-05-28 15:28 | PC.RT ---
pt came in via EMS on 15L NRB. Pt has rhonchi throughout. EMS states staff at facility as concerned of aspiration. RT placed nasal trumpet on right nare and deep suctioned w/ catheter. Suctioned out c, yellow secretion. Post suction, lung sound clear bilateral. Nasal trumpet still in place, will continue to monitor.
[2024-05-28 15:52] LABS: MANUAL DIFF FLAG NO
[2024-05-28 15:54] LABS: Basophils Percent Auto 0.3 % (0-2); Eosinophils Absolute Auto 0.4 X10*3/uL (0.0-0.4); Eosinophils Percent Auto 3.5 % (0-4); Hematocrit 38.7 % (42.0-52.0); Hemoglobin 13.4 g/dl (14.0-18.0); Imm Gran Abs Auto 0.04 X10*3/uL (0.00-0.03); Imm Gran Pct Auto 0.4 % (0.0-0.4); Lymphocytes Absolute Auto 2.5 X10*3/uL (1.2-4.9); Lymphocytes Percent Auto 25.3 % (20-40); Mean Corpuscular HGB Conc 34.6 g/dl (31.0-36.0); Mean Corpuscular Hemoglobin 30.9 pg (27.0-33.0); Mean Corpuscular Volume 89.4 fL (80.0-98.0); Mean Platelet Volume 8.5 fL (9.4-12.4); Monocytes Absolute Auto 1.2 X10*3/uL (0.1-1.2); Monocytes Percent Auto 12.2 % (2-11); Neutrophils Absolute Auto 5.8 x10*3/uL (2.0-8.3); Neutrophils Percent Auto 58.3 % (45-73); Platelet Count 228 X10*3/uL (160-400); Red Blood Count 4.33 X10*6/uL (4.60-5.80); Red Cell Distribution Width 12.7 % (11.0-16.0)
[2024-05-28 15:57] LABS: VBG HCO3 24 mmol/L (22-26); VBG pCO2 33 mmHg; VBG pH 7.46 (7.32-7.43); VBG pO2 34 mmHg
[2024-05-28 16:11] LABS: Alanine Aminotransferase 34 U/L (0-40); Albumin Level 4.1 g/dL (3.5-5.0); Alkaline Phosphatase 70 U/L (39-117); Anion Gap 15 (12-20); Aspartate Amino Transferase 51 U/L (5-37); Bilirubin Total 0.3 mg/dL (0.0-1.0); Blood Urea Nitrogen 14 mg/dL (9-16); Calcium 9.8 mg/dL (8.4-10.2); Carbon Dioxide 21 mmol/L (22-29); Chloride 105 mmol/L (96-108); Creatinine Clr Calc Pharmacy 94.4; Estimated Glomerular Filt Rate > 60; Glucose Random 196 mg/dL (60-115); Magnesium 1.5 mg/dL (1.6-2.6); Potassium 5.3 mmol/L (3.3-5.1); Sodium 136 mmol/L (135-145); Total Protein 8.3 g/dL (6.5-8.0)
[2024-05-28 16:14] LABS: Troponin-I High Sensitivity 5.7 ng/L (<3.5-35.0)
[2024-05-28 16:17] LABS: Venous Blood Gas Refer to POC result
[2024-05-28 16:30] LABS: Influenza A PCR NEGATIVE (Negative); Influenza B PCR NEGATIVE (Negative); Resp Syncy Virus RNA Qual PCR NEGATIVE (Negative); SARS COV2 PCR INHOUSE NEGATIVE (Negative)
--- NOTE | 2024-05-28 16:56 | ED.AMS ---
HPI - Altered Mental Status General Chief Complaint: Altered Mental Status Stated Complaint: SOB 94% ON 15LPM,AMS,?ASPIRATION FROM SNF PER EMS Time Seen by Provider: 05/28/24 16:05 History of Present Illness HPI narrative: Patient is a 54-year-old male with a history of respiratory failure history of traumatic subarachnoid hemorrhage baseline lives in a halfway. Presented today with having increasing coughing increasing shortness of breath. Was noted that he needed oxygen. Patient is sent in for further evaluation from [facility] halfway. He is unable to give detailed history. Per EMS staff patient usually more responsive more talkative sometimes gets more agitated today is actually less agitated less talkative. He was barely able to tell me his name. Can not answer any more questions. Related Data Home Medications ?Medication ?Instructions ?Recorded ?Confirmed Lactobacillus acidophilus 1 cap PO BID 02/10/23 02/10/23 (Acidophilus capsule) acetaminophen 160 mg/5 mL oral 650 mg PO Q6H PRN Fever Or Pain 02/10/23 02/10/23 liquid acetaminophen 325 mg tablet 650 mg PO TID back pain 02/10/23 02/10/23 amlodipine 5 mg tablet 5 mg PO DAILY 02/10/23 02/10/23 aspirin 81 mg chewable tablet 81 mg PO DAILY 02/10/23 02/10/23 atorvastatin 80 mg tablet 80 mg PO BEDTIME 02/10/23 02/10/23 clonidine HCl 0.1 mg tablet 0.1 mg PO BID 02/10/23 02/10/23 docusate sodium 50 mg/5 mL oral 100 mg PO DAILY 02/10/23 02/10/23 liquid famotidine 20 mg tablet 20 mg PO BEDTIME 02/10/23 02/10/23 hydroxyzine HCl 25 mg tablet 25 mg PO BID PRN Agitation 02/10/23 02/10/23 insulin glargine 100 unit/mL (3 14 unit subcut QAM 02/10/23 02/10/23 mL) subcutaneous pen (Lantus Solostar U-100 Insulin) insulin glargine 100 unit/mL 22 unit subcut BEDTIME 02/10/23 02/10/23 subcutaneous solution (Lantus U-100 Insulin) insulin lispro 100 unit/mL 1 sliding scale dose subcut 02/10/23 02/10/23 subcutaneous pen USEASDIRECTD lactulose 10 gram/15 mL oral 30 ml PO BID 02/10/23 02/10/23 solution levetiracetam 750 mg tablet 750 mg PO BID 02/10/23 02/10/23 melatonin 10 mg tablet 10 mg PO BEDTIME 02/10/23 02/10/23 metformin 1,000 mg tablet 1,000 mg PO BID 02/10/23 02/10/23 miconazole nitrate 2 % topical 1 appl topical BID 02/10/23 02/10/23 powder propranolol 40 mg tablet 40 mg PO TID 02/10/23 02/10/23 risperidone 2 mg tablet (Risperdal) 2 mg PO BID 02/10/23 02/10/23 sennosides 8.6 mg tablet (senna) 8.6 mg PO DAILY PRN Constipation 02/10/23 02/10/23 sodium chloride 1 gram tablet 1,000 mg PO TID 02/10/23 02/10/23 tamsulosin 0.4 mg capsule 0.4 mg PO BEDTIME 02/10/23 02/10/23 Allergies Allergy/AdvReac Type Severity Reaction Status Date / Time Penicillins Allergy Unknown Verified 05/28/24 15:24 valproic acid Allergy Unknown Verified 05/28/24 15:24 Review of Systems Review of Systems: Unable to obtain review of systems secondary to patient's condition [facility] Past Medical History Medical History Hypertension Diabetes type 2, controlled Social History Social History Household Members: None Housing: [facility] Unable to assess alcohol history related to: Unable to respond Patient Tobacco Use Status: Tobacco use Unknown Smoked in Last 30 Days: No Use of substances other than those prescribed or required for medical reasons: No Advance Directives: Yes Advance Directives on File: Yes Advance Directives Date on File: 02/10/23 Do you have a plan to hurt others: No Plan service: No Physical Exam ED Vital Signs: Vital Signs - 24 hr 05/28/24 15:21 05/28/24 17:00 05/28/24 18:41 Temperature 99.2 F Pulse Rate 78 87 Respiratory Rate 18 16 Blood Pressure 94/46 L 155/53 H Pulse Oximetry 98 97 Oxygen Delivery Method Nasal Cannula Room Air 02/03/25 20:48 05/28/24 22:43 05/28/24 23:03 Temperature 101.7 F H 101.5 F H Pulse Rate 100 102 H Respiratory Rate 20 22 H Blood Pressure 146/64 H 156/56 H Pulse Oximetry 95 95 Oxygen Delivery Method Room Air Room Air 05/28/24 23:16 Temperature 101.5 F H Pulse Rate Respiratory Rate Blood Pressure Pulse Oximetry Oxygen Delivery Method BMI result Body Mass Index 27.9 Appearance: Alert. Chronically sick-appearing Eyes: Pupils equal, round and reactive to light. ENT: Pharynx normal. Neck: Normal inspection. Neck supple. No lymph nodes noted. No crepitus CVS: Normal heart rate and rhythm. Pulses normal. Normal S1 and S2 Respiratory: No respiratory distress. Breath sounds normal. No Wheezing. No rales Abdomen: Soft and nontender. No rigidity. No distention. good BS x4 Skin: Skin warm and dry. Normal skin color. Normal skin turgor. Extremities: No lower extremity edema. Neurovascular intact to all extremities. No Lacerations. No Rash Neuro: Oriented X self only. No motor deficit. No sensory deficit. Moving all extermities. Medications Administered Discontinued Medications Generic Name Dose Route Start Last Admin Trade Name Freq PRN Reason Stop Dose Admin Acetaminophen 975 mg 05/28/24 20:43 05/28/24 21:20 Acetaminophen 325 Mg Tablet PO 05/28/24 20:44 975 mg ONCE ONE Administration Sodium Chloride 1,000 mls @ 999 mls/hr 05/28/24 17:00 05/28/24 18:42 Ns IV 05/28/24 18:00 Infused .Q1H1M LAMIN Infusion Cefepime HCl 2 gm in 50 mls @ 100 mls/hr 05/28/24 16:55 05/28/24 18:42 Maxipime IV 05/28/24 17:24 Infused ONCE ONE Infusion Sodium Chloride 1,000 mls @ 999 mls/hr 05/28/24 17:00 05/28/24 18:42 Ns IV 05/28/24 18:00 Infused .Q1H1M LAMIN Infusion Sodium Chloride 500 mls @ 999 mls/hr 05/28/24 17:00 05/28/24 18:54 Ns IV 05/28/24 17:30 Infused .Q31M LAMIN Infusion Ketorolac Tromethamine 15 mg 05/28/24 22:06 05/28/24 22:17 Ketorolac Tromethamine 15 Mg/Ml Vial IVPUSH 05/28/24 22:07 15 mg ONCE ONE Administration Medical Decision Making Medical Decision Making [facility] Narrative: Patient had a blood pressure of 94/46 initially heart rate was normal at 78. Positive shortness of breath needed oxygen today. Patient not on blood thinners. Has a history of subarachnoid hemorrhage in the past. My interpretation of patient's chest x-ray is grossly negative for any acute evidence of pneumonia. No pneumothorax. Patient's flu COVID RSV all came back negative. Troponin was normal. A venous blood gas was done. The pH was 7.46 pCO2 33 PaO2 34 my interpretation of the venous blood gas is essentially normal. No CO2 retention. Patient's white count was 10. Hemoglobin is 13.4 no signs of anemia. Has significant shortness of breath have need for oxygen question etiology nursing staff noted lots of mucus. A nasal trumpet was placed prior to my arrival which seems to have help with patient's O2. Will get a CTA of the chest that is better delineate if there is a PE versus a pneumonia. Given soft blood pressure 30 cc/kilos IV fluid was ordered. Cultures ordered lactate ordered. Patient is a do not resuscitate. I evaluated patient's old history including hospitalist note. Patient has had a history of getting cefepime in the past with no problems. A dose of cefepime was ordered. I reviewed patient's halfway note it showed a possible allergy to penicillin. It was not documented what kind of allergy. Patient's lactate came back at 2.9. After IV fluids. Patient reassess. Repeat focal exam for sepsis patient symptom of proximally the same. Room air O2 sat is proximally 89-91. A CTA of the chest was done. My interpretation patient's CTA showed a right lower lobe infiltrate. Repeat lactate level was 1.8. There is no severe sepsis. Patient will require admission. Case consulted by the hospitalist team. Differential Diagnosis Differential Diagnoses: The differential diagnosis associated with the presentation includes Pneumonia, flu, COVID, RSV, aspiration Admission/Observation Consideration of admission/observation: Escalation of care including admission/observation considered Consult Healthcare Provider Management of the patient was discussed with: Hospitalist Lab Data [facility] Lab Attestation statement: I reviewed the patient's lab results. 05/28/24 15:47 05/28/24 15:47 Labs: Lab Results 05/28/24 05/28/24 05/28/24 Range/Units 15:47 15:52 17:07 WBC 10.0 (4.8-10.8) X10*3/uL RBC 4.33 L (4.60-5.80) X10*6/uL Hgb 13.4 L (14.0-18.0) g/dl Hct 38.7 L (42.0-52.0) % MCV 89.4 (80.0-98.0) fL MCH 30.9 (27.0-33.0) pg MCHC 34.6 (31.0-36.0) g/dl RDW 12.7 (11.0-16.0) % Plt Count 228 D (160-400) X10*3/uL MPV 8.5 L (9.4-12.4) fL Immature Gran % (Auto) 0.4 (0.0-0.4) % Neut % (Auto) 58.3 (45-73) % Lymph % (Auto) 25.3 (20-40) % [place]oard % (Auto) 12.2 H (2-11) % Eos % (Auto) 3.5 (0-4) % Baso % (Auto) 0.3 (0-2) % Lymph # (Auto) 2.5 (1.2-4.9) X10*3/uL Foard # (Auto) 1.2 (0.1-1.2) X10*3/uL Eos # (Auto) 0.4 (0.0-0.4) X10*3/uL Baso # (Auto) 0.0 (0.0-0.2) X10*3/uL Abs Immat Gran (auto) 0.04 H (0.00-0.03) X10*3/uL Absolute Neuts (auto) 5.8 (2.0-8.3) x10*3/uL Absolute Nucleated RBC 0.000 (0.0-0.012) X10*3/uL Nucleated RBC % (auto) 0.0 (0.0-0.2) /100WBC VBG pH 7.46 H (7.32-7.43) VBG pCO2 33 mmHg VBG pO2 34 mmHg VBG HCO3 24 (22-26) mmol/L VBG O2 Saturation 53.0 % VBG Base Excess 1.0 mmol/L Sodium 136 (135-145) mmol/L Potassium 5.3 H (3.3-5.1) mmol/L Chloride 105 (96-108) mmol/L Carbon Dioxide 21 L (22-29) mmol/L Anion Gap 15 (12-20) BUN 14 (9-16) mg/dL Creatinine 0.86 (0.5-1.4) mg/dL Estim Creat Clear Calc 94.4 Estimated GFR > 60 Random Glucose 196 H (60-115) mg/dL Lactic Acid 2.9 H* (0.5-2.0) mmol/L Lactic Acid F/U @ 2Hr (0.5-2.0) mmol/L Calcium 9.8 (8.4-10.2) mg/dL Magnesium 1.5 L (1.6-2.6) mg/dL Total Bilirubin 0.3 (0.0-1.0) mg/dL AST 51 H (5-37) U/L ALT 34 (0-40) U/L Alkaline Phosphatase 70 (39-117) U/L Troponin I High Sens 5.7 (<3.5-35.0) ng/L B-Natriuretic Peptide 55 (<100) pg/mL Total Protein 8.3 H (6.5-8.0) g/dL Albumin 4.1 (3.5-5.0) g/dL Urine Color Urine Appearance Urine pH (5.0-9.0) Ur Specific [place] (1.005-1.025) Urine Protein (Neg-Trace) mg/dL Urine Glucose (UA) (Negative) mg/dL Urine Ketones (Negative) mg/dL Urine Blood (Negative) Urine Nitrite (Negative) Ur Leukocyte Esterase (Negative) Urine RBC (0-2) /HPF Urine WBC (0-5) /HPF Ur Squamous Epith Cells (0-2) /HPF Urine Bacteria (None Seen) Hyaline Casts (0-2) /LPF Influenza Type A (PCR) NEGATIVE (Negative) Influenza Type B (PCR) NEGATIVE (Negative) RSV RNA Qual (PCR) NEGATIVE (Negative) SARS-CoV-2 RNA (RT-PCR) NEGATIVE (Negative) 05/28/24 05/28/24 Range/Units 19:22 21:14 WBC (4.8-10.8) X10*3/uL RBC (4.60-5.80) X10*6/uL Hgb (14.0-18.0) g/dl Hct (42.0-52.0) % MCV (80.0-98.0) fL MCH (27.0-33.0) pg MCHC (31.0-36.0) g/dl RDW (11.0-16.0) % Plt Count (160-400) X10*3/uL MPV (9.4-12.4) fL Immature Gran % (Auto) (0.0-0.4) % Neut % (Auto) (45-73) % Lymph % (Auto) (20-40) % [place] % (Auto) (2-11) % Eos % (Auto) (0-4) % Baso % (Auto) (0-2) % Lymph # (Auto) (1.2-4.9) X10*3/uL [place] # (Auto) (0.1-1.2) X10*3/uL Eos # (Auto) (0.0-0.4) X10*3/uL Baso # (Auto) (0.0-0.2) X10*3/uL Abs Immat Gran (auto) (0.00-0.03) X10*3/uL Absolute Neuts (auto) (2.0-8.3) x10*3/uL Absolute Nucleated RBC (0.0-0.012) X10*3/uL Nucleated RBC % (auto) (0.0-0.2) /100WBC VBG pH (7.32-7.43) VBG pCO2 mmHg VBG pO2 mmHg VBG HCO3 (22-26) mmol/L VBG O2 Saturation % VBG Base Excess mmol/L Sodium (135-145) mmol/L Potassium (3.3-5.1) mmol/L Chloride (96-108) mmol/L Carbon Dioxide (22-29) mmol/L Anion Gap (12-20) BUN (9-16) mg/dL Creatinine (0.5-1.4) mg/dL Estim Creat Clear Calc Estimated GFR Random Glucose (60-115) mg/dL Lactic Acid (0.5-2.0) mmol/L Lactic Acid F/U @ 2Hr 1.8 (0.5-2.0) mmol/L Calcium (8.4-10.2) mg/dL Magnesium (1.6-2.6) mg/dL Total Bilirubin (0.0-1.0) mg/dL AST (5-37) U/L ALT (0-40) U/L Alkaline Phosphatase (39-117) U/L Troponin I High Sens (<3.5-35.0) ng/L B-Natriuretic Peptide (<100) pg/mL Total Protein (6.5-8.0) g/dL Albumin (3.5-5.0) g/dL Urine Color Yellow Urine Appearance Clear Urine pH 7.0 (5.0-9.0) Ur Specific [place] 1.010 (1.005-1.025) Urine Protein Negative (Neg-Trace) mg/dL Urine Glucose (UA) Negative (Negative) mg/dL Urine Ketones Negative (Negative) mg/dL Urine Blood Negative (Negative) Urine Nitrite Negative (Negative) Ur Leukocyte Esterase Negative (Negative) Urine RBC 0-2 (0-2) /HPF Urine WBC 0-5 (0-5) /HPF Ur Squamous Epith Cells 0-2 (0-2) /HPF Urine Bacteria None Seen (None Seen) Hyaline Casts 0-2 (0-2) /LPF Influenza Type A (PCR) (Negative) Influenza Type B (PCR) (Negative) RSV RNA Qual (PCR) (Negative) SARS-CoV-2 RNA (RT-PCR) (Negative) Independent Interpretation I performed an independent interpretation of an: EKG (My interpretation patient's EKG showed a sinus pattern heart rate was 80 MO QRS QTC normal there is J-point elevation over the anterior leads. When compared to previous EKG isn't changed.), Plain X-Ray (My interpretation of patient's initial chest x-ray was grossly negative for pneumonia) and CT Scan (My interpretation patient's CT scan head was negative for bleeding. My interpretation patient's CT angio chest was positive for right lower lobe infiltrate) Radiology Impression Discussion of test interpretation with radiology: I have reviewed the radiologist's reading. External Record Review External record reviewed: Inpatient record Chronic Conditions Patient?s care impacted by: Hypertension Previous history of intracranial bleed Social Determinants Patient?s care significantly limited by Social Determinants of Health including: Inadequate housing, Problems related to primary support group and Unemployment Critical Care Time Critical Care Time Critical Care Time: Yes Total Critical Care Time: 40 Attestation: I have personally provided 40 minutes of critical care time exclusive of time spent on separately billable procedures. ?Time includes review of lab data, radiology results, discussion with consultants, and monitoring for potential decompensation. ?Interventions were performed as documented above Discharge Plan Discharge Clinical Impression: Altered mental status, Pneumonia Patient Disposition: Admitted As Inpatient Print Language: Indonesian
--- OUTSIDE RECORDS SUMMARY | 2024-05-28 17:08 | XMS_ITS | Clinical Summary ---
Author Organization [facility] Address [address] [place] [address] Care Team Providers Care Clinical Staff Educator Name Role Phone Unavailable Primary Care Provider Unavailabl e Allergies Active Allergy Reactions Criticality Noted Date Comments Valproic Acid 02/02/2022 High ammonia Penicillins 06/03/2021 Per patient's mother Medications Medication Sig Dispensed Refills Start Date End Date Status amLODIPine (NORVASC) tablet 5 mg Take 1 tablet (5 mg total) by mouth daily. 30 tablet 1 07/19/2022 Active aspirin 81 MG chewable tablet Chew 1 tablet (81 mg total) by mouth daily. 30 tablet 0 07/19/2022 Active atorvastatin (LIPITOR) tablet 80 mg Take 1 tablet (80 mg total) by mouth every evening. 30 tablet 0 07/19/2022 Active cloNIDine (CATAPRES) tablet 0.1 mg Take 1 tablet (0.1 mg total) by mouth every 12 (twelve) hours. 60 tablet 0 07/19/2022 Active famotidine (PEPCID) 20 MG tablet Take 1 tablet (20 mg total) by mouth every night at bedtime. 60 tablet 0 07/19/2022 Active lactulose (CEPHULAC) 20 GM/30ML solution Take 30 mL (20 g total) by mouth 2 (two) times a day. 240 mL 0 07/19/2022 Active levETIRAcetam (KEPPRA) 750 MG tablet Take 1 tablet (750 mg total) by mouth 2 (two) times a day. 60 tablet 0 07/19/2022 Active propranolol (INDERAL) 40 MG tablet Take 1 tablet (40 mg total) by mouth every 8 (eight) hours. 90 tablet 0 07/19/2022 Active risperiDONE (RisperDAL) 1 MG tablet Take 0.5 tablets (0.5 mg total) by mouth every morning with breakfast. 60 tablet 1 07/19/2022 Active risperiDONE (RisperDAL) 1 MG tablet Take 1 tablet (1 mg total) by mouth Every evening with dinner. 60 tablet 1 07/19/2022 Active tamsulosin (FLOMAX) 0.4 MG CAPS Take 1 capsule (0.4 mg total) by mouth every evening. 30 capsule 0 07/19/2022 Active traZODone (DESYREL) 50 MG tablet Take 1 tablet (50 mg total) by mouth every night at bedtime. 30 tablet 1 07/19/2022 Active acetaminophen (TYLENOL) 160 MG/5ML solution Take 20.3 mL (650 mg total) by mouth every 6 (six) hours as needed. 120 mL 0 07/19/2022 Active docusate sodium (COLACE) 50 MG/5ML liquid Take 10 mL (100 mg total) by mouth daily. 100 mL 0 07/20/2022 Active traZODone (DESYREL) 50 MG tablet Take 1 tablet (50 mg total) by mouth every night at bedtime as needed for sleep. 90 tablet 1 07/19/2022 Active docusate sodium (ENEMEEZ) [address] 1 enema (283 mg total) rectally every other day. 30 each 0 07/20/2022 Active Melatonin 10 MG TABS Take 10 mg by mouth every night at bedtime. 30 tablet 1 07/19/2022 Active metFORMIN (GLUCOPHAGE) tablet 500 mg Take 1 tablet (500 mg total) by mouth 2 (two) times a day with meals. 60 tablet 1 07/19/2022 Active miconazole (MICATIN) 2 % powder Apply topically 2 (two) times a day. To groin area please. 70 g 0 07/19/2022 Active sodium chloride 1 g tablet Take 1 tablet (1 g total) by mouth 3 (three) times a day. 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, closed, initial encounter 07/04/2021 Traumatic subdural hematoma, initial encounter 0 05/12/2021 Skull fractures 05/12/2021 Occlusion of left internal carotid artery 2021 Acute ischemic stroke 05/12/2021 Hyperglycemia 05/12/2021 Hypertension 05/12/2021 Immunizations Name Administration Dates Next Due Adacel (Tdap) 05/12/2021 Covid-19 (Pfizer) Dilution Required 07/09/2022,0 06/15/2022 TB Skin Test (TST-PPD) 06/15/2022 Social History Tobacco Use Types Packs/Day Years Used Date Smoking Tobacco: Unknown Smokeless Tobacco: Never Sex and Gender Information Value Date Recorded Sex Assigned at Male 07/23/2022 9:21 AM EDT Gender Identity Male 07/23/2022 9:21 AM EDT Sexual Orientation Not on file Job Start Date Occupation Industry Not on file Not on file Not on file Last Filed Vital Signs Vital Sign Reading Time Taken Comments Blood Pressure 119/78 07/21/2022 8:00 AM EDT Pulse 81 07/21/2022 8:00 AM EDT Temperature 36.5 ??C (97.7 ??F) 07/21/2022 6:12 AM ED T Respiratory Rate 18 07/21/2022 6:12 AM EDT Oxygen Saturation 98% 07/21/2022 6:12 AM EDT Inhaled Oxygen Concentration - - Weight 90 kg (198 lb 8 oz) 07/21/2022 6:12 AM ED T Height 182.9 cm (6') 11/05/2021 7:13 AM EDT Body Mass Index 26.92 11/05/2021 7:13 AM EDT Plan of Treatment Health Maintenance Due Date Last Done Comments Hepatitis B Vaccines (1 of 3 - 3-dose series) 1968 Hepatitis C Screening 1968 Depression Screening 1980 BMI Counseling 01/27/1986 Preventative Health Evaluation 01/27/1986 Colon Cancer Screening (Colonoscopy) 01/27/2013 Shingrix-Zoster Vaccine (1 o f 2) 01/27/2018 COVID-19 Vaccine (3 2023-2 5 season) 2023 07/09/2022, 06/15/2022 Influenza Vaccine (#1) 2023 04/22/2020 DTap / Tdap / Td (2 - Td or Tdap) 05/12/2031 05/12/2021 Pneumococcal Vaccine Aged Out No long er eligible based on patient's age to complete this topic RSV Ped < 20 months Aged Out No longe r eligible based on patient's age to complete this topic Advance Directives For more information, please contact: [phone] Latest Code Status on File Code Status Date Activated Date Inactivated Comments DNR 02/09/2022 4:09 PM 07/21/2022 7:07 PM This code status was ascertained in the following way: after discussing with his mother. Code Status History Code Status Date Activated Date Inactivated Comments Full Code 11/05/2021 2:22 PM 02/09/2022 4:09 PM This code status was ascertained in the following way: as prior Full Code 11/04/2021 3:16 PM 11/05/2021 2:22 PM This code status was ascertained in the following way: W-10 . Full Code 10/08/2021 9:48 AM 11/04/2021 11:34 AM This code status was ascertained in the following way: as prior. Code A- Full Code 09/26/2021 9:41 PM 10/07/2021 8:02 PM T his code status was ascertained in the following way: per living will or healthcare instructions .
[2024-05-28] MEDS: 0.9 % Sodium Chloride 1,000 ML 999 ML IV ×2 (17:14)
[2024-05-28] MEDS: cefEPime HCl/D5W 2 GM/50 ML PIGGYBACK IV (17:14)
[2024-05-28] MEDS: 0.9 % Sodium Chloride 500 ML 999 ML IV (17:14)
[2024-05-28 17:21] LABS: B Type Natriuretic Peptide 55 pg/mL (<100)
[2024-05-28 17:50] LABS: Lactic Acid 2.9 mmol/L (0.5-2.0)
[2024-05-28 19:11] LABS: Reflex Lactate? Lactic Acid Added
[2024-05-28 19:42] LABS: ~Lactic Acid-LAB USE ONLY 1.8 mmol/L (0.5-2.0)
--- NOTE | 2024-05-28 19:47 | MHC.EDTECH ---
pt was found incontinent of urine, anne marie care was done, new linen and warm blankets given, call kim within reach, condom cath placed on pt with excellent tolerance, RN made aware
--- NOTE | 2024-05-28 20:23 | PC.NURSE ---
CT still not completed, provider Dr. Norris aware, checked with CT pt on list, will be scanned 6th on list
[2024-05-28] MEDS: Acetaminophen 325 MG TABLET 975 MG PO (21:20)
[2024-05-28 21:21] LABS: Appearance Urine Clear; Color Urine Yellow; Glucose Urine UA Negative (Negative); Leukocyte Esterase Urine Negative (Negative); Nitrite Urine Negative (Negative); Urine Blood Negative (Negative); Urine Ketones Negative (Negative); Urine Protein Negative (Neg-Trace)
[2024-05-28 21:25] LABS: Bacteria Urine None Seen (None Seen); Hyaline Casts Urine 0-2 /LPF (0-2); RBC Urine 0-2 /HPF (0-2); Squamous Epithelial Cell Urine 0-2 /HPF (0-2); WBC Urine 0-5 /HPF (0-5)
[2024-05-28] MEDS: Ketorolac Tromethamine 15 MG/ML VIAL IVPUSH (22:17)
--- NOTE | 2024-05-28 23:57 | PM.IMHP ---
History of Present Illness Date of Service: 05/28/24 Attending physician on admission: Leonidas Hargrove Chief Complaint: Increasing cough, SOB and new Oxygen requirement x 1 day Patient is a 54 year old male resident of [facility] in [place] who has past medical history of TBI, SAH, cgnitive deficits, type 2 diabetes mellitus, quadriplegiawho was sent to the emergency room by EMS for further evaluation after he was noted with be increasingly lethargic and hypoxic with oxygen saturation of 84% on room air today morning. He has been having a wet cough and has been short of breath for a few days with his symptoms appearing to get worse today where he was also less responsive, prompting the transfer. While in the ambulance, he was placed on supplemental oxygen with improvement in his saturations. He unfortunately is non-verbal and hence unable to provide any information. [facility] the staff state that he is usually more active than he was today and also confirmed the above history. Once in the emergency department, he was found to be febrile with a temperature of a 101.7? F, tachycardic with a heart rate 102 beats per minute and tachypneic with a respiratory rate of 22 breaths per minute. Blood work done was revealed elevated serum lactic acid at 2.9 (with a repeat of 1.8 after hydration), mild hyperkalemia a serum potassium of 5.3 and low serum Magnesium at 1.5. A chest CTA done showed moderate patchy consolidations of the right middle lobe and right lower lobe concerning for aspiration or multifocal pneumonia. A diagnosis of acute respiratory failure with hypoxia, severe sepsis (without septic shock) and pneumonia was made and he was started on IV Cefepime and admission requested. HE received IV fluid with improvement in his serum lactate levels. His blood pressure has remained stable and he has not required any resuscitation. Review of Systems Review of Systems: Unobtainable due to patient being nonverbal. Yes Unobtainable due to mental condition PMFSH Medical History Hypertension Diabetes type 2, controlled Social History Household Members: None Housing: Alf Unable to assess alcohol history related to: Unable to respond Patient Tobacco Use Status: Tobacco use Unknown Advance Directives Date on File: 02/10/23 service: No Meds Allergies Allergy/AdvReac Type Severity Reaction Status Date / Time Penicillins Allergy Unknown Verified 05/28/24 15:24 valproic acid Allergy Unknown Verified 05/28/24 15:24 Active Medications: Current Medications Acetaminophen (Acetaminophen 325 Mg Tablet) 650 mg PO Q6H PRN PRN Reason: Pain, Mild 1-3,fever,headache Calcium Carbonate (Calcium Carbonate 750 Mg Tab.Chew) 750 mg PO Q4H PRN PRN Reason: Heartburn Enoxaparin Sodium (Enoxaparin Sodium 40 Mg/0.4 Ml Syringe) 40 mg SUBCUT BEDTIME LAMIN Lactated Ringer's (Lr) 1,000 mls @ 100 mls/hr IVCONT .Q10H LAMIN Magnesium Hydroxide (Milk Of Magnesia 30 Ml Oral.Susp) 30 ml PO DAILY PRN PRN Reason: Constipation Melatonin (Melatonin 3 Mg Tablet) 6 mg PO BEDTIME PRN PRN Reason: Insomnia Ondansetron HCl (Ondansetron Hcl 4 Mg/2 Ml Vial) 4 mg IVPUSH Q8H PRN PRN Reason: Nausea and Vomiting Sodium Chloride (0.9 % Sodium Chloride Flush 3 Ml Syringe) 3 ml IVFLUSH QSHIFT [facility] Home Medications ?Medication ?Instructions ?Recorded ?Confirmed ?Last Taken ?Type Lactobacillus acidophilus 1 cap PO BID 02/10/23 02/10/23 Unknown History (Acidophilus capsule) acetaminophen 160 mg/5 mL oral 650 mg PO Q6H PRN Fever Or Pain 02/10/23 02/10/23 Unknown History liquid acetaminophen 325 mg tablet 650 mg PO TID back pain 02/10/23 02/10/23 Unknown History amlodipine 5 mg tablet 5 mg PO DAILY 02/10/23 02/10/23 Unknown History aspirin 81 mg chewable tablet 81 mg PO DAILY 02/10/23 02/10/23 Unknown History atorvastatin 80 mg tablet 80 mg PO BEDTIME 02/10/23 02/10/23 Unknown History clonidine HCl 0.1 mg tablet 0.1 mg PO BID 02/10/23 02/10/23 Unknown History docusate sodium 50 mg/5 mL oral 100 mg PO DAILY 02/10/23 02/10/23 Unknown History liquid famotidine 20 mg tablet 20 mg PO BEDTIME 02/10/23 02/10/23 Unknown History hydroxyzine HCl 25 mg tablet 25 mg PO BID PRN Agitation 02/10/23 02/10/23 Unknown History insulin glargine 100 unit/mL (3 14 unit subcut QAM 02/10/23 02/10/23 Unknown History mL) subcutaneous pen (Lantus Solostar U-100 Insulin) insulin glargine 100 unit/mL 22 unit subcut BEDTIME 02/10/23 02/10/23 Unknown History subcutaneous solution (Lantus U-100 Insulin) insulin lispro 100 unit/mL 1 sliding scale dose subcut 02/10/23 02/10/23 Unknown History subcutaneous pen USEASDIRECTD lactulose 10 gram/15 mL oral 30 ml PO BID 02/10/23 02/10/23 Unknown History solution levetiracetam 750 mg tablet 750 mg PO BID 02/10/23 02/10/23 Unknown History melatonin 10 mg tablet 10 mg PO BEDTIME 02/10/23 02/10/23 Unknown History metformin 1,000 mg tablet 1,000 mg PO BID 02/10/23 02/10/23 Unknown History miconazole nitrate 2 % topical 1 appl topical BID 02/10/23 02/10/23 Unknown History powder propranolol 40 mg tablet 40 mg PO TID 02/10/23 02/10/23 Unknown History risperidone 2 mg tablet (Risperdal) 2 mg PO BID 02/10/23 02/10/23 Unknown History sennosides 8.6 mg tablet (senna) 8.6 mg PO DAILY PRN Constipation 02/10/23 02/10/23 Unknown History sodium chloride 1 gram tablet 1,000 mg PO TID 02/10/23 02/10/23 Unknown History tamsulosin 0.4 mg capsule 0.4 mg PO BEDTIME 02/10/23 02/10/23 Unknown History Physical Exam Vital Signs and Narrative: Vital Signs: Last Vital Signs Temp 101.5 F H 05/28/24 23:16 Pulse 102 H 05/28/24 22:43 Resp 22 H 05/28/24 22:43 BP 156/56 H 05/28/24 22:43 Pulse Ox 95 05/28/24 22:43 O2 Del Method Room Air 05/28/24 22:43 BMI result Body Mass Index 27.9 Const: Other: Awake in bed but non-verbal. Unable to follow instructions. Not in distress HEENT: Other: Normocephalic, atraumatic. No pallor or jaundice. Eyes: Other: No pallor or jaundice Neck: Other: No cervical lymphadenopathy Chest: Other: Equal chest expansion. Not using accessory muscles of respiration. Auscultation reveals coarse bilateral breath sounds. No wheezing Resp: Other: Normal respiratory effort. No wheezes Cardio: Other: RRR. Normal s1/s2. No murmurs, rubs or gallops. No JVD GI: Other: Scaphoid, soft, non-tender. Normo-active bowel sounds : Other: Normal external male genitalia Back/Spine/Pelvis: Other: No CVA ten derness elicited on palpation Skin: Other: Warm and dry. no mottling. Normal capillary refill Neuro: Other: Awake and alert but non-verbal and not able to follow instructions. This is his baseline per correction staff. Further neurological exam was deferred. Extrem: Other: Contractures. Psych: Other: Cognition and affect not assessed Results Labs 05/28/24 15:47 05/28/24 15:47 Labs: Laboratory Results - last 24 hr 05/28/24 05/28/24 05/28/24 15:47 15:52 17:07 MCV 89.4 MCH 30.9 MCHC 34.6 RDW 12.7 Plt Count 228 D MPV 8.5 L Immature Gran % (Auto) 0.4 Neut % (Auto) 58.3 Lymph % (Auto) 25.3 [place] % (Auto) 12.2 H Eos % (Auto) 3.5 Baso % (Auto) 0.3 Lymph # (Auto) 2.5 [place] # (Auto) 1.2 Eos # (Auto) 0.4 Baso # (Auto) 0.0 Abs Immat Gran (auto) 0.04 H Absolute Neuts (auto) 5.8 Absolute Nucleated RBC 0.000 Nucleated RBC % (auto) 0.0 VBG pH 7.46 H VBG pCO2 33 VBG pO2 34 VBG HCO3 24 VBG O2 Saturation 53.0 VBG Base Excess 1.0 Anion Gap 15 Estim Creat Clear Calc 94.4 Estimated GFR > 60 Random Glucose 196 H Lactic Acid 2.9 H* Lactic Acid F/U @ 2Hr Calcium 9.8 Magnesium 1.5 L Total Bilirubin 0.3 AST 51 H ALT 34 Alkaline Phosphatase 70 Troponin I High Sens 5.7 B-Natriuretic Peptide 55 Total Protein 8.3 H Albumin 4.1 Urine Color Urine Appearance Urine pH Ur Specific [place] Urine Protein Urine Glucose (UA) Urine Ketones Urine Blood Urine Nitrite Ur Leukocyte Esterase Urine RBC Urine WBC Ur Squamous Epith Cells Urine Bacteria Hyaline Casts Influenza Type A (PCR) NEGATIVE Influenza Type B (PCR) NEGATIVE RSV RNA Qual (PCR) NEGATIVE SARS-CoV-2 RNA (RT-PCR) NEGATIVE 05/28/24 05/28/24 19:22 21:14 MCV MCH MCHC RDW Plt Count MPV Immature Gran % (Auto) Neut % (Auto) Lymph % (Auto) [place] % (Auto) Eos % (Auto) Baso % (Auto) Lymph # (Auto) [place] # (Auto) Eos # (Auto) Baso # (Auto) Abs Immat Gran (auto) Absolute Neuts (auto) Absolute Nucleated RBC Nucleated RBC % (auto) VBG pH VBG pCO2 VBG pO2 VBG HCO3 VBG O2 Saturation VBG Base Excess Anion Gap Estim Creat Clear Calc Estimated GFR Random Glucose Lactic Acid Lactic Acid F/U @ 2Hr 1.8 Calcium Magnesium Total Bilirubin AST ALT Alkaline Phosphatase Troponin I High Sens B-Natriuretic Peptide Total Protein Albumin Urine Color Yellow Urine Appearance Clear Urine pH 7.0 Ur Specific [place] 1.010 Urine Protein Negative Urine Glucose (UA) Negative Urine Ketones Negative Urine Blood Negative Urine Nitrite Negative Ur Leukocyte Esterase Negative Urine RBC 0-2 Urine WBC 0-5 Ur Squamous Epith Cells 0-2 Urine Bacteria None Seen Hyaline Casts 0-2 Influenza Type A (PCR) Influenza Type B (PCR) RSV RNA Qual (PCR) SARS-CoV-2 RNA (RT-PCR) Imaging Radiologist's Impressions: Impressions Chest X-Ray 05/28/24 15:21 IMPRESSION: No active pulmonary disease. Electronically signed by: Stanley Urrutia MD 05/28/2024 04:25 PM [facility] CTA Chest Moderate patchy consolidation of the right middle lobe and right lower lobe that may represent aspiration or multifocal pneumonia Assessment and Plan (1) Acute respiratory failure with hypoxia: Status: Acute - he was found to be hypoxic with the oxygen saturation of 84% on room air while at the SNF - this was the primary reason for his transfer - initial workup with findings concerning for pneumonia - continue supplemental oxygen as needed - treat underlying pneumonia (2) Severe sepsis: Status: Acute - he meets criteria for severe sepsis with a fever of 101.7? F, tachycardic with a heart rate of 102 beats per minute, tachypnea with a respiratory rate of 20 2 beats per minute in the presence of a suspected pneumonia in the RML and RLL and elevated serum lactic acid at 2.9 - there is concern for aspiration pneumonia - Fortunately not hypotensive - serum lactic acid levels improved to 1.8 after hydration - admit and continue with IV cefepime - check a serum procalcitonin (3) Pneumonia: Qualifiers: Pneumonia type: due to unspecified organism Laterality: right Lung location: middle lobe of lung Qualified Code(s): J18.9 - Pneumonia, unspecified organism Status: Acute - CTA chest shows the presence of moderate patchy consolidation of the RML and RLL that may represent aspiration or multifocal pneumonia - will admit and continue the IV cefepime - will check a serum procalcitonin (4) Altered mental status: Qualifiers: Altered mental status type: somnolence Qualified Code(s): R40.0 - Somnolence Status: Acute - it is not clear what his baseline mental status is better nursing staff report that he was more lethargic than his usual self - likely secondary to infection - treat as above with IV cefepime (5) Hypomagnesemia: Status: Acute - noted with a serum magnesium of 1.5 - replace and recheck in the morning (6) Hyperkalemia: Status: Acute - noted with mild hypokalemia with a serum potassium of 5.3 - give some IV fluids and reassess in the morning Total time managing care of this patient today: 75 minutes. Quality Stroke Does the patient have a stroke diagnosis?: No VTE Prior VTE?: No VTE Risk Level:: Medical - moderate - high VTE Device Contraindication: N/A - Device Ordered VTE Drug Contraindication: N/A - Med Ordered
[2024-05-29] VITALS (14 sets, daily range): BP systolic 109–180; BP diastolic 52–83; PULSE 76–105; RESP 16–24; TEMP 36–38.5; O2SAT 86–100; BMI 26.8
[2024-05-29] MEDS: Lactated Ringers 1,000 ML 100 ML IVCONT (01:08)
[2024-05-29] MEDS: cefEPime HCl/D5W 2 GM/50 ML PIGGYBACK IV ×2 (01:10→07:54)
[2024-05-29] MEDS: Enoxaparin Sodium 40 MG/0.4 ML SYRINGE SUBCUT ×2 (01:12→20:36)
[2024-05-29] MEDS: Magnesium Sulfate/H2O 2 GM/50 ML PIGGYBACK IV (01:51)
[2024-05-29] MEDS: Ketorolac Tromethamine 30 MG/ML VIAL IVPUSH (02:05)
[2024-05-29 02:17] LABS: Glucose, Whole Blood 149 mg/dL (60-115)
[2024-05-29 03:37] LABS: Glucose, Whole Blood 159 mg/dL (60-115)
[2024-05-29 06:23] LABS: Basophils Percent Auto 0.2 % (0-2); Eosinophils Absolute Auto 0.1 X10*3/uL (0.0-0.4); Eosinophils Percent Auto 0.9 % (0-4); Hematocrit 35.8 % (42.0-52.0); Hemoglobin 12.5 g/dl (14.0-18.0); Imm Gran Abs Auto 0.06 X10*3/uL (0.00-0.03); Imm Gran Pct Auto 0.4 % (0.0-0.4); Lymphocytes Absolute Auto 2.6 X10*3/uL (1.2-4.9); Lymphocytes Percent Auto 17.7 % (20-40); MANUAL DIFF FLAG SCAN; Mean Corpuscular HGB Conc 34.9 g/dl (31.0-36.0); Mean Corpuscular Hemoglobin 31.1 pg (27.0-33.0); Mean Corpuscular Volume 89.1 fL (80.0-98.0); Mean Platelet Volume 8.8 fL (9.4-12.4); Monocytes Absolute Auto 1.6 X10*3/uL (0.1-1.2); Neutrophils Absolute Auto 10.2 x10*3/uL (2.0-8.3); Neutrophils Percent Auto 69.8 % (45-73); Platelet Count 203 X10*3/uL (160-400); Red Blood Count 4.02 X10*6/uL (4.60-5.80); Red Cell Distribution Width 12.6 % (11.0-16.0); SCAN SMEAR FLAG 1; White Blood Count 14.7 X10*3/uL (4.8-10.8)
--- NOTE | 2024-05-29 06:28 | PC.NURSE ---
0435- PATIENT WAS NEW ADMISSION FROM ED, TRANSPORTED VIA STRETCHER, SLEEPY, NON VERBAL AT THIS TIME, NO S/SX RESP DISTRESS OR PAIN. 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 PATIENT DID NOT ENGAGE IN CONVERSATION, NOR ANSWER ANY QUESTIONS, HE DID OPEN HIS EYES BUT NO RESPONSES AND THIS WAS SAME PER ED REPORT. NOTED INCONTINENT SMALL BROWN SOFT STOOL AND [place] CATHETER IN PLACE WITH YELLOW URINE. VSS, LUNG FIGUEROA WITH EXP RHONCI THRU OUT THAT DID CLEAR SOME WITH COUGH AND REPOSITIONING. TOENAILS NEEDING REDUCTION AND SOME DARK AREAS AT NAIL BASES, OTHERWISE SKIN IS GOOD. HFR DETERMINED AND BED ALARM IN USE FOR SAFETY. MONITORED FREQUENTLY AND NO EPISODES TO EXIT BED OR TO BED EDGE. PHARMACY IS WORKING ON MEDICATION RECONCILIATION NO nh PAPERWORK WITH PATIENT AT THIS TIME. NUMBER [id number] ANGIO AT LEFT FOREARM WITH IVF LR AT 100ML/HR PER JUN. OXYGEN SATURATION 95% ON 4 LITERS, WILL CONTINUE TO MONITOR CLOSELY.
[2024-05-29 06:46] LABS: Alanine Aminotransferase 24 U/L (0-40); Albumin Level 3.8 g/dL (3.5-5.0); Alkaline Phosphatase 62 U/L (39-117); Anion Gap 13 (12-20); Aspartate Amino Transferase 21 U/L (5-37); Bilirubin Total 0.5 mg/dL (0.0-1.0); Blood Urea Nitrogen 15 mg/dL (9-16); Calcium 8.9 mg/dL (8.4-10.2); Carbon Dioxide 21 mmol/L (22-29); Chloride 107 mmol/L (96-108); Creatinine Clr Calc Pharmacy 109.4; Estimated Glomerular Filt Rate > 60; Glucose Random 142 mg/dL (60-115); Magnesium 1.9 mg/dL (1.6-2.6); Potassium 4.2 mmol/L (3.3-5.1); Sodium 137 mmol/L (135-145); Total Protein 7.2 g/dL (6.5-8.0)
[2024-05-29 07:11] LABS: SLIDE REVIEW VERIFIED
[2024-05-29 07:18] LABS: Procalcitonin 0.14 ng/mL
[2024-05-29 07:21] LABS: Glucose, Whole Blood 132 mg/dL (60-115)
--- NOTE | 2024-05-29 07:35 | P.PNIM_ITS ---
Subjective Subjective Date of Service: 05/29/24 Review of Systems Follow up severe sepsis with acute hypoxic respiratory failure secondary to pneumonia sleepy,not much communication Physical Exam 2 Vital Signs: Vital Signs: Last Vital Signs Temp 98.1 F 05/29/24 07:12 Pulse 85 05/29/24 07:12 Resp 18 05/29/24 07:12 BP 133/61 05/29/24 06:00 Pulse Ox 95 05/29/24 06:00 O2 Del Method Oxymask 05/29/24 06:00 O2 Flow Rate 4 05/29/24 06:00 BMI result Body Mass Index 26.8 Appearing in no acute distress lung sounds are clear to auscultation heart regular rate rhythm, clear S1, S2 positive bowel sounds, abdomen is soft, nontender neuro patient is alert, confused Objective Data Active Medications Acetaminophen (Acetaminophen 325 Mg Tablet) 650 mg PO Q6H PRN PRN Reason: Pain, Mild 1-3,fever,headache Calcium Carbonate (Calcium Carbonate 750 Mg Tab.Chew) 750 mg PO Q4H PRN PRN Reason: Heartburn Dextrose (Dextrose 50 % 25 Gm/50 Ml Syringe) 25 gm IVPUSH Q15M PRN; Protocol PRN Reason: per Hypoglycemia Standing Ord. Enoxaparin Sodium (Enoxaparin Sodium 40 Mg/0.4 Ml Syringe) 40 mg SUBCUT BEDTIME [facility] Last Admin: 05/29/24 01:12 Dose: 40 mg Documented By: OLIVER Glucose (Glucose Gel 15 Gm Gel..Gram.) 15 gm PO Q15M PRN; Protocol PRN Reason: per Hypoglycemia Standing Ord. Lactated Ringer's (Lr) 1,000 mls @ 100 mls/hr IVCONT .Q10H [facility] Last Infusion: 05/29/24 02:07 Dose: 125 mls/hr Documented By: OLIVER Cefepime HCl (Maxipime) 2 gm in 50 mls @ 100 mls/hr IV Q8H [facility] Last Infusion: 05/29/24 01:45 Dose: Infused Documented By: OLIVER Lactated Ringer's (Lr) 1,000 mls @ 125 mls/hr IVCONT .Q8H ONE Stop: 05/29/24 09:08 Last Admin: 05/29/24 02:08 Dose: Not Given Documented By: OLIVER Non-Admin Reason: current LR infusion increased to 125ml/hr Insulin Glargine (Insulin Glargine,Hum.Rec.Anlog 100 Unit/Ml 10 Ml Vial) 12 unit SUBCUT BID [facility] Insulin Human Lispro (Insulin Lispro 100 Unit/Ml 3 Ml Vial) 0 unit SUBCUT Q6H [facility]; Protocol Last Admin: 05/29/24 02:12 Dose: Not Given Documented By: OLIVER Non-Admin Reason: poc 149 Magnesium Hydroxide (Milk Of Magnesia 30 Ml Oral.Susp) 30 ml PO DAILY PRN PRN Reason: Constipation Melatonin (Melatonin 3 Mg Tablet) 6 mg PO BEDTIME PRN PRN Reason: Insomnia Ondansetron HCl (Ondansetron Hcl 4 Mg/2 Ml Vial) 4 mg IVPUSH Q8H PRN PRN Reason: Nausea and Vomiting Sodium Chloride (0.9 % Sodium Chloride Flush 3 Ml Syringe) 3 ml IVFLUSH QSHIFT [facility] Last Admin: 05/29/24 01:02 Dose: Not Given Documented By: OLIVER Non-Admin Reason: 10 ml flush Labs 05/29/24 05:41 05/29/24 05:41 Labs: Laboratory Results - last 24 hr 05/28/24 05/28/24 05/28/24 15:47 15:52 17:07 MCV 89.4 MCH 30.9 MCHC 34.6 RDW 12.7 Plt Count 228 D MPV 8.5 L Immature Gran % (Auto) 0.4 Neut % (Auto) 58.3 Lymph % (Auto) 25.3 [place] % (Auto) 12.2 H Eos % (Auto) 3.5 Baso % (Auto) 0.3 Lymph # (Auto) 2.5 [place] # (Auto) 1.2 Eos # (Auto) 0.4 Baso # (Auto) 0.0 Abs Immat Gran (auto) 0.04 H Absolute Neuts (auto) 5.8 Absolute Nucleated RBC 0.000 Nucleated RBC % (auto) 0.0 Smear Tech's Comments VBG pH 7.46 H VBG pCO2 33 VBG pO2 34 VBG HCO3 24 VBG O2 Saturation 53.0 VBG Base Excess 1.0 Anion Gap 15 Estim Creat Clear Calc 94.4 Estimated GFR > 60 POC Glucose Random Glucose 196 H Lactic Acid 2.9 H* Lactic Acid F/U @ 2Hr Calcium 9.8 Magnesium 1.5 L Total Bilirubin 0.3 AST 51 H ALT 34 Alkaline Phosphatase 70 Troponin I High Sens 5.7 B-Natriuretic Peptide 55 Total Protein 8.3 H Albumin 4.1 Procalcitonin Urine Color Urine Appearance Urine pH Ur Specific [place] Urine Protein Urine Glucose (UA) Urine Ketones Urine Blood Urine Nitrite Ur Leukocyte Esterase Urine RBC Urine WBC Ur Squamous Epith Cells Urine Bacteria Hyaline Casts Influenza Type A (PCR) NEGATIVE Influenza Type B (PCR) NEGATIVE RSV RNA Qual (PCR) NEGATIVE SARS-CoV-2 RNA (RT-PCR) NEGATIVE 05/28/24 05/28/24 05/29/24 19:22 21:14 02:12 MCV MCH MCHC RDW Plt Count MPV Immature Gran % (Auto) Neut % (Auto) Lymph % (Auto) [place] % (Auto) Eos % (Auto) Baso % (Auto) Lymph # (Auto) [place] # (Auto) Eos # (Auto) Baso # (Auto) Abs Immat Gran (auto) Absolute Neuts (auto) Absolute Nucleated RBC Nucleated RBC % (auto) Smear Tech's Comments VBG pH VBG pCO2 VBG pO2 VBG HCO3 VBG O2 Saturation VBG Base Excess Anion Gap Estim Creat Clear Calc Estimated GFR POC Glucose 149 H Random Glucose Lactic Acid Lactic Acid F/U @ 2Hr 1.8 Calcium Magnesium Total Bilirubin AST ALT Alkaline Phosphatase Troponin I High Sens B-Natriuretic Peptide Total Protein Albumin Procalcitonin Urine Color Yellow Urine Appearance Clear Urine pH 7.0 Ur Specific [place] 1.010 Urine Protein Negative Urine Glucose (UA) Negative Urine Ketones Negative Urine Blood Negative Urine Nitrite Negative Ur Leukocyte Esterase Negative Urine RBC 0-2 Urine WBC 0-5 Ur Squamous Epith Cells 0-2 Urine Bacteria None Seen Hyaline Casts 0-2 Influenza Type A (PCR) Influenza Type B (PCR) RSV RNA Qual (PCR) SARS-CoV-2 RNA (RT-PCR) 05/29/24 05/29/24 05/29/24 03:33 05:41 07:17 MCV 89.1 MCH 31.1 MCHC 34.9 RDW 12.6 Plt Count 203 MPV 8.8 L Immature Gran % (Auto) 0.4 Neut % (Auto) 69.8 Lymph % (Auto) 17.7 L [place] % (Auto) 11.0 Eos % (Auto) 0.9 Baso % (Auto) 0.2 Lymph # (Auto) 2.6 [place] # (Auto) 1.6 H Eos # (Auto) 0.1 Baso # (Auto) 0.0 Abs Immat Gran (auto) 0.06 H Absolute Neuts (auto) 10.2 H Absolute Nucleated RBC 0.000 Nucleated RBC % (auto) 0.0 Smear Tech's Comments VERIFIED VBG pH VBG pCO2 VBG pO2 VBG HCO3 VBG O2 Saturation VBG Base Excess Anion Gap 13 Estim Creat Clear Calc 109.4 Estimated GFR > 60 POC Glucose 159 H 132 H Random Glucose 142 H Lactic Acid Lactic Acid F/U @ 2Hr Calcium 8.9 D Magnesium 1.9 Total Bilirubin 0.5 AST 21 ALT 24 Alkaline Phosphatase 62 Troponin I High Sens B-Natriuretic Peptide Total Protein 7.2 Albumin 3.8 Procalcitonin 0.14 Urine Color Urine Appearance Urine pH Ur Specific [place] Urine Protein Urine Glucose (UA) Urine Ketones Urine Blood Urine Nitrite Ur Leukocyte Esterase Urine RBC Urine WBC Ur Squamous Epith Cells Urine Bacteria Hyaline Casts Influenza Type A (PCR) Influenza Type B (PCR) RSV RNA Qual (PCR) SARS-CoV-2 RNA (RT-PCR) Assessment and Plan (1) Pneumonia: Status: Acute Plan 54 year old man admitted with acute respiratory failure with hypoxia secondary to pneumonia Severe sepsis. Sepsis resolved fever of 101.7? F, tachycardic with a heart rate of 102 beats per minute, tachypnea with a respiratory rate of 20 2 beats per minute in the presence of a suspected pneumonia in the RML and RLL and elevated serum lactic acid at 2.9 continue with IV rocephin and doxycycline Acute respiratory failure with hypoxia secondary to Pneumonia CTA chest shows the presence of moderate patchy consolidation of the RML and RLL that may represent aspiration or multifocal pneumonia continue with IV rocephin and doxycycline serum procalcitonin 0.14 Continue oxygen supplementation to keep oxygen saturation greater than 91% Acute metabolic encephalopathy secondary to pneumonia nursing staff at [facility] report that he was more lethargic than his usual self likely secondary to infection treat as above with IV antibiotics Hypomagnesemia. Resolved Repleted Hyperkalemia. Resolved Status post IV fluids Hypertension Type diabetes mellitus type 2 Sliding scale, ADA diet Seizure disorder Continue [facility] Continue medications from facility Hyperlipidemia Continue aspirin and statin DVT prophylaxis with Lovenox DNR/DNI Disposition. Resident of [facility], transfer back when medically clear Quality Stroke Does the patient have a stroke diagnosis?: No VTE Prior VTE?: No VTE Risk Level:: Medical - moderate - high VTE Device Contraindication: N/A - Device Ordered VTE Drug Contraindication: N/A - Med Ordered
[2024-05-29] MEDS: 0.9 % Sodium Chloride Flush 3 ML SYRINGE IVFLUSH ×3 (07:53→20:47)
[2024-05-29] MEDS: Insulin Glargine,Hum.rec.anlog 100 UNIT/ML 10 ML VIAL 12 UNIT SUBCUT ×2 (07:54→20:43)
--- NOTE | 2024-05-29 09:21 | MHC.CM.PN ---
IMM DELIVERED TO [facility]. [facility] REQUESTS WHITE COPY BE MAILED. PT IS UNABLE TO SIGN DUE TO COGNITIVE IMPAIRMENT. 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 RETURN REFERRAL SENT TO [facility] WITH REQUEST TO FAX COPY OF [facility]. CM WILL CONTINUE TO FOLLOW FOR ANY CHANGE TO DC NEEDS.
[2024-05-29] MEDS: Doxycycline Hyclate 100 MG in 0.9 % Sodium Chloride 250 ML 166.67 MG IV ×2 (10:20→20:37)
--- NOTE | 2024-05-29 10:52 | PHA.MEDREC ---
Pharmacy Consult ? Medication Reconciliation Pharmacy has completed the medication reconciliation. Received med list from [facility], used this to verify home meds.
[2024-05-29 11:59] LABS: Glucose, Whole Blood 131 mg/dL (60-115)
[2024-05-29] MEDS: Lactated Ringers 1,000 ML 125 ML IVCONT ×2 (12:36→20:39)
[2024-05-29] MEDS: risperiDONE 2 MG TABLET PO ×2 (13:03→20:15)
[2024-05-29] MEDS: cloNIDine HCL 0.1 MG TABLET PO ×2 (13:03→20:15)
[2024-05-29] MEDS: amLODIPine Besylate 5 MG TABLET PO (13:05)
[2024-05-29] MEDS: Propranolol HCL 40 MG TABLET PO ×2 (16:48→20:16)
[2024-05-29] MEDS: cefTRIAXone sodium 1 GM VIAL IVPUSH (17:07)
[2024-05-29 18:16] LABS: Glucose, Whole Blood 205 mg/dL (60-115)
[2024-05-29] MEDS: Lactulose 20 GM/30 ML SOLUTION PO (20:15)
[2024-05-29] MEDS: levETIRAcetam 250 MG TABLET 750 MG PO (20:15)
[2024-05-29] MEDS: Famotidine 20 MG TABLET PO (20:15)
[2024-05-29] MEDS: Tamsulosin HCL 0.4 MG CAPSULE PO (20:15)
[2024-05-29] MEDS: Atorvastatin Calcium 80 MG TABLET PO (20:16)
[2024-05-29] MEDS: Melatonin 3 MG TABLET 9 MG PO (20:16)
[2024-05-29] MEDS: Insulin Lispro 100 UNIT/ML 3 ML VIAL SUBCUT (20:45)
[2024-05-29 20:47] LABS: Glucose, Whole Blood 204 mg/dL (60-115)
[2024-05-30] VITALS (7 sets, daily range): BP systolic 93–169; BP diastolic 51–74; PULSE 61–84; RESP 14–18; TEMP 36.1–37; O2SAT 93–99
[2024-05-30 00:21] LABS: Glucose, Whole Blood 156 mg/dL (60-115)
[2024-05-30] MEDS: Insulin Lispro 100 UNIT/ML 3 ML VIAL SUBCUT ×2 (00:32→19:30)
[2024-05-30 06:35] LABS: Anion Gap 11 (12-20); Blood Urea Nitrogen 12 mg/dL (9-16); Carbon Dioxide 22 mmol/L (22-29); Chloride 109 mmol/L (96-108); Creatinine Clr Calc Pharmacy 137.8; Estimated Glomerular Filt Rate > 60; Glucose Random 99 mg/dL (60-115); Potassium 3.8 mmol/L (3.3-5.1); Sodium 138 mmol/L (135-145)
[2024-05-30 06:35] LABS: Glucose, Whole Blood 96 mg/dL (60-115)
[2024-05-30] MEDS: Lactated Ringers 1,000 ML 125 ML IVCONT ×3 (07:46→19:53)
[2024-05-30] MEDS: Insulin Glargine,Hum.rec.anlog 100 UNIT/ML 10 ML VIAL 12 UNIT SUBCUT ×2 (07:46→19:30)
[2024-05-30] MEDS: Doxycycline Hyclate 100 MG in 0.9 % Sodium Chloride 250 ML 166.7 MG IV ×2 (07:46→19:28)
[2024-05-30] MEDS: levETIRAcetam 250 MG TABLET 750 MG PO (07:47)
[2024-05-30] MEDS: Docusate Sodium 100 MG/10 ML LIQUID PO (07:47)
[2024-05-30] MEDS: Lactulose 20 GM/30 ML SOLUTION PO ×2 (07:47→19:40)
[2024-05-30] MEDS: amLODIPine Besylate 5 MG TABLET PO (07:47)
[2024-05-30] MEDS: cloNIDine HCL 0.1 MG TABLET PO ×2 (07:47→19:40)
[2024-05-30] MEDS: Aspirin 81 MG TAB.CHEW PO (07:47)
[2024-05-30] MEDS: Propranolol HCL 40 MG TABLET PO ×3 (07:48→19:39)
[2024-05-30] MEDS: risperiDONE 2 MG TABLET PO ×2 (07:48→19:40)
--- NOTE | 2024-05-30 09:04 | MHC.SLORD ---
Speech Language Pathology Order Status: CITY LIBRARY DIRECTOR attempted eval this morning, pt sleeping soundly, responded to sternal rub/verbal cueing with slight smile, kept eyes closed. RN and MD consulted. Pt on puree diet with NTL, CITY LIBRARY DIRECTOR to evaluate when pt awake.
[2024-05-30 12:14] LABS: Glucose, Whole Blood 129 mg/dL (60-115)
--- NOTE | 2024-05-30 12:41 | P.PNIM_ITS ---
Subjective Subjective Date of Service: 05/30/24 Interval History: altered, unable to obtain history fever resolved Review of Systems Review of Systems: Yes Unobtainable due to mental status Physical Exam 2 Vital Signs: Vital Signs: Last Vital Signs Temp 98.2 F 05/30/24 10:00 Pulse 65 05/30/24 10:00 Resp 16 05/30/24 10:00 BP 120/64 05/30/24 12:27 Pulse Ox 96 05/30/24 10:00 O2 Del Method Room Air 05/30/24 10:00 O2 Flow Rate 3 05/29/24 15:36 BMI result Body Mass Index 26.8 Gen: in no acute distress HEENT: sclera anicteric, moist mucus membranes Neck: supple Lungs: clear to auscultation bilaterally Heart: regular rate and rhythm, no murmurs Abd: soft, non-tender, non-distended Ext: no edema Skin: warm/well-perfused Neuro: somnolent, minimally verbal Psych: impaired insight Objective Data Active Medications Acetaminophen (Acetaminophen 325 Mg Tablet) 650 mg PO Q6H PRN PRN Reason: Pain, Mild 1-3,fever,headache Amlodipine Besylate (Amlodipine Besylate 5 Mg Tablet) 5 mg PO DAILY [facility]; Protocol Last Admin: 05/30/24 07:47 Dose: 5 mg Documented By: SARWAT Aspirin (Aspirin 81 Mg Tab.Chew) 81 mg PO DAILY [facility] Last Admin: 05/30/24 07:47 Dose: 81 mg Documented By: SARWAT Atorvastatin Calcium (Atorvastatin Calcium 80 Mg Tablet) 80 mg PO BEDTIME [facility] Last Admin: 05/29/24 20:16 Dose: 80 mg Documented By: MARTY Calcium Carbonate (Calcium Carbonate 750 Mg Tab.Chew) 750 mg PO Q4H PRN PRN Reason: Heartburn Ceftriaxone Sodium (Ceftriaxone Sodium 1 Gm Vial) 1 gm IVPUSH Q24H [facility] Last Admin: 05/29/24 17:07 Dose: 1 gm Documented By: SARWAT Clonidine HCl (Clonidine Hcl 0.1 Mg Tablet) 0.1 mg PO BID [facility]; Protocol Last Admin: 05/30/24 07:47 Dose: 0.1 mg Documented By: SARWAT Dextrose (Dextrose 50 % 25 Gm/50 Ml Syringe) 25 gm IVPUSH Q15M PRN; Protocol PRN Reason: per Hypoglycemia Standing Ord. Docusate Sodium (Docusate Sodium 100 Mg/10 Ml Liquid) 100 mg PO DAILY [facility] Last Admin: 05/30/24 07:47 Dose: 100 mg Documented By: SARWAT Enoxaparin Sodium (Enoxaparin Sodium 40 Mg/0.4 Ml Syringe) 40 mg SUBCUT BEDTIME [facility] Last Admin: 05/29/24 20:36 Dose: 40 mg Documented By: MARTY Famotidine (Famotidine 20 Mg Tablet) 20 mg PO BEDTIME [facility] Last Admin: 05/29/24 20:15 Dose: 20 mg Documented By: MARTY Glucose (Glucose Gel 15 Gm Gel..Gram.) 15 gm PO Q15M PRN; Protocol PRN Reason: per Hypoglycemia Standing Ord. Lactated Ringer's (Lr) 1,000 mls @ 100 mls/hr IVCONT .Q10H [facility] Last Admin: 05/30/24 07:46 Dose: 125 mls/hr Documented By: SARWAT Doxycycline Hyclate 100 mg/ (Sodium Chloride) 250 mls @ 166.67 mls/hr IV Q12H [facility] Last Infusion: 05/30/24 09:36 Dose: Infused Documented By: SARWAT Insulin Glargine (Insulin Glargine,Hum.Rec.Anlog 100 Unit/Ml 10 Ml Vial) 12 unit SUBCUT BID [facility] Last Admin: 05/30/24 07:46 Dose: 12 unit Documented By: SARWAT Insulin Human Lispro (Insulin Lispro 100 Unit/Ml 3 Ml Vial) 0 unit SUBCUT Q6H [facility]; Protocol Last Admin: 05/30/24 06:31 Dose: Not Given Documented By: MARTY Non-Admin Reason: No Insulin Coverage Lactulose (Lactulose 20 Gm/30 Ml Solution) 20 gm PO BID [facility] Last Admin: 05/30/24 07:47 Dose: 20 gm Documented By: SARWAT Levetiracetam (Levetiracetam 250 Mg Tablet) 750 mg PO BID [facility] Last Admin: 05/30/24 07:47 Dose: 750 mg Documented By: SARWAT Magnesium Hydroxide (Milk Of Magnesia 30 Ml Oral.Susp) 30 ml PO DAILY PRN PRN Reason: Constipation Melatonin (Melatonin 3 Mg Tablet) 6 mg PO BEDTIME PRN PRN Reason: Insomnia Melatonin (Melatonin 3 Mg Tablet) 9 mg PO BEDTIME [facility] Last Admin: 05/29/24 20:16 Dose: 9 mg Documented By: MARTY Ondansetron HCl (Ondansetron Hcl 4 Mg/2 Ml Vial) 4 mg IVPUSH Q8H PRN PRN Reason: Nausea and Vomiting Propranolol HCl (Propranolol Hcl 40 Mg Tablet) 40 mg PO TID [facility]; Protocol Last Admin: 05/30/24 07:48 Dose: 40 mg Documented By: SARWAT Risperidone (Risperidone 2 Mg Tablet) 2 mg PO BID [facility] Last Admin: 05/30/24 07:48 Dose: 2 mg Documented By: SARWAT Senna (Sennosides 8.6 Mg Tablet) 8.6 mg PO DAILY PRN PRN Reason: Constipation Sodium Chloride (0.9 % Sodium Chloride Flush 3 Ml Syringe) 3 ml IVFLUSH QSHIFT [facility] Last Admin: 05/30/24 07:48 Dose: Not Given Documented By: SARWAT Non-Admin Reason: IV Running Tamsulosin HCl (Tamsulosin Hcl 0.4 Mg Capsule) 0.4 mg PO BEDTIME [facility] Last Admin: 05/29/24 20:15 Dose: 0.4 mg Documented By: MARTY Labs 05/29/24 05:41 05/30/24 05:43 Labs: Laboratory Results - last 24 hr 05/29/24 05/29/24 05/30/24 18:11 20:42 00:12 Hold Purple Top Anion Gap Estim Creat Clear Calc Estimated GFR POC Glucose 205 H 204 H 156 H Random Glucose Calcium 05/30/24 05/30/24 05/30/24 05:43 06:30 12:10 Hold Purple Top SEE NOTE Anion Gap 11 L Estim Creat Clear Calc 137.8 Estimated GFR > 60 POC Glucose 96 129 H Random Glucose 99 Calcium 9.0 Microbiology Microbiology Results: Microbiology 05/28/24 17:12 Blood Culture - Preliminary Blood - Venous No growth after 24 hours. 05/28/24 17:07 Blood Culture - Preliminary Blood - Venous No growth after 24 hours. Assessment and Plan (1) Pneumonia: Status: Acute Plan d3 for 54yo M LTC resident at [facility] presenting with hypoxia due to PNA acute hypoxic resp failure and severe sepsis due to PNA - 2/4- doxycycline + ceftriaxone, follow BCx - lactic acidosis resolved - weaned off of O2 acute encephalopathy due to infection + hypoxia [metabolic] - treat PNA as above - QUALITY LEAD evaluation hypoMg - repleted hyperK - due to hemolysis; resolved HTN - amlodipine, clonidine, propranolol HLD - atorvastatin DM2 - basal-bolus insulin sz disorder - levetiracetam mood disorder - risperidone VTE ppx - enoxaparin dispo - eventual return to [facility] In my clinical judgment, the patient requires continued inpatient hospitalization for the following reasons: IV ABX Total time managing care of this patient today: 45 minutes. Quality Stroke Does the patient have a stroke diagnosis?: No VTE Prior VTE?: No VTE Risk Level:: Medical - moderate - high VTE Device Contraindication: N/A - Device Ordered VTE Drug Contraindication: N/A - Med Ordered
--- NOTE | 2024-05-30 14:22 | PC.NURSE ---
pt has not voided since early this morning. bladder scanned for >460ml. Md notified and ordered yang catheter placement. yang in place.
--- NOTE | 2024-05-30 14:40 | MHC.CM.PN ---
EMR REVIEWED AND PER MD ROUNDS, PT IS NOT MEDICALLY CLEARED FOR DC BACK TO [facility]. (IV ABT) [facility] [employer] CM WILL CONTINUE TO FOLLOW
[2024-05-30] MEDS: cefTRIAXone sodium 1 GM VIAL IVPUSH (16:38)
[2024-05-30 18:39] LABS: Glucose, Whole Blood 191 mg/dL (60-115)
[2024-05-30] MEDS: 0.9 % Sodium Chloride Flush 3 ML SYRINGE IVFLUSH (19:29)
[2024-05-30] MEDS: Enoxaparin Sodium 40 MG/0.4 ML SYRINGE SUBCUT (19:31)
[2024-05-30] MEDS: Acetaminophen 325 MG TABLET 650 MG PO (19:39)
[2024-05-30] MEDS: Tamsulosin HCL 0.4 MG CAPSULE PO (19:39)
[2024-05-30] MEDS: Atorvastatin Calcium 80 MG TABLET PO (19:39)
[2024-05-30] MEDS: Melatonin 3 MG TABLET 9 MG PO (19:40)
[2024-05-30] MEDS: Famotidine 20 MG TABLET PO (19:40)
[2024-05-30] MEDS: levETIRAcetam Oral Soln 500 MG/5 ML 750 MG PO (19:51)
[2024-05-31 00:35] LABS: Glucose, Whole Blood 131 mg/dL (60-115)
[2024-05-31 04:00] VITALS: BP 142/65; PULSE 58; RESP 16; TEMP 36.1; O2SAT 98
[2024-05-31 06:43] LABS: Hematocrit 32.4 % (42.0-52.0); Hemoglobin 10.7 g/dl (14.0-18.0); Mean Corpuscular Hemoglobin 30.2 pg (27.0-33.0); Mean Corpuscular Volume 91.5 fL (80.0-98.0); Mean Platelet Volume 8.9 fL (9.4-12.4); Platelet Count 158 X10*3/uL (160-400); Red Blood Count 3.54 X10*6/uL (4.60-5.80); Red Cell Distribution Width 12.5 % (11.0-16.0); White Blood Count 7.6 X10*3/uL (4.8-10.8)
--- NOTE | 2024-05-31 06:46 | PC.NURSE ---
Contacted overnight re: q6 POC. Documentation states pt is eating 100% of his meals. As of this note stated he would review but has not responded beyond that.
[2024-05-31 06:52] LABS: Procalcitonin 0.07 ng/mL
[2024-05-31 07:20] VITALS: BP 159/72; PULSE 57; RESP 18; TEMP 36; O2SAT 97
[2024-05-31 08:00] LABS: Glucose, Whole Blood 106 mg/dL (60-115)
[2024-05-31] MEDS: Aspirin 81 MG TAB.CHEW PO (08:48)
[2024-05-31] MEDS: Doxycycline Monohydrate 100 MG CAPSULE PO (08:48)
[2024-05-31] MEDS: risperiDONE 2 MG TABLET PO (08:48)
[2024-05-31] MEDS: cloNIDine HCL 0.1 MG TABLET PO (08:49)
[2024-05-31] MEDS: Docusate Sodium 100 MG/10 ML LIQUID PO (08:49)
[2024-05-31] MEDS: levETIRAcetam Oral Soln 500 MG/5 ML 750 MG PO (08:49)
[2024-05-31] MEDS: Lactulose 20 GM/30 ML SOLUTION PO (08:49)
[2024-05-31] MEDS: amLODIPine Besylate 5 MG TABLET PO (08:49)
[2024-05-31 11:11] LABS: Glucose, Whole Blood 237 mg/dL (60-115)
--- NOTE | 2024-05-31 11:41 | P.DS_ITS ---
DS: Providers Provider Date of Service: 05/31/24 Date of admission: 05/28/24 23:42 Date of discharge: 05/31/24 Primary care physician: Casey Everett DO DS: Diagnosis Discharge Diagnosis (1) Pneumonia: Status: Acute (2) Severe sepsis: Status: Acute (3) Acute respiratory failure with hypoxia: Status: Acute (4) Hypomagnesemia: Status: Acute (5) Acute metabolic encephalopathy: Status: Acute DS: Summary Hospital Course Hospital Course: From the history and physical by the admitting hospitalist, Leonidas Hargrove MD, 05/28/24: Patient is a 54 year old male resident of [facility] in [place] who has past medical history of TBI, SAH, cgnitive deficits, type 2 diabetes mellitus, quadriplegiawho was sent to the emergency room by EMS for further evaluation after he was noted with be increasingly lethargic and hypoxic with oxygen saturation of 84% on room air today morning. He has been having a wet cough and has been short of breath for a few days with his symptoms appearing to get worse today where he was also less responsive, prompting the transfer. While in the ambulance, he was placed on supplemental oxygen with improvement in his saturations. He unfortunately is non-verbal and hence unable to provide any information. I called [facility] and the staff state that he is usually more active than he was today and also confirmed the above history. Once in the emergency department, he was found to be febrile with a temperature of a 101.7? F, tachycardic with a heart rate 102 beats per minute and tachypneic with a respiratory rate of 22 breaths per minute. Blood work done was revealed elevated serum lactic acid at 2.9 (with a repeat of 1.8 after hydration), mild hyperkalemia a serum potassium of 5.3 and low serum Magnesium at 1.5. A chest CTA done showed moderate patchy consolidations of the right middle lobe and right lower lobe concerning for aspiration or multifocal pneumonia. A diagnosis of acute respiratory failure with hypoxia, severe sepsis (without septic shock) and pneumonia was made and he was started on IV Cefepime and admission requested. HE received IV fluid with improvement in his serum lactate levels. His blood pressure has remained stable and he has not required any resuscitation. 54yo M LTC resident at [facility] presenting with hypoxia due to PNA, admitted to the medical-surgical unit. acute hypoxic resp failure and severe sepsis due to PNA - Treated with doxycycline + ceftriaxone and weaned off oxygen - Lactic acidosis resolved - Blood cultures negative - Procalcitonin low - Seen by SLOT MACHINE REPAIRER and eventually placed on NDD2 solids/nectar-thick liquids. acute encephalopathy due to infection + hypoxia [metabolic] - Improved with pneumonia treatment. hypoMg - Repleted. hyperK - Due to hemolysis; resolved. He was discharged back to [facility] on 5 days of doxycycline and cefdinir. Time Attestation Discharge Coordination Time (in mins): 45 Quality: Safe Use of Opioids Does Pt have an Active Cancer Diagnosis on the Problem List?: No Quality: Stroke Does the patient have a stroke diagnosis?: No Physical Exam Vital Signs: Vital Signs: Last Vital Signs Temp 96.8 F 05/31/24 07:20 Pulse 57 05/31/24 07:20 Resp 18 05/31/24 07:20 BP 159/72 H 05/31/24 07:20 Pulse Ox 97 05/31/24 07:20 O2 Del Method Room Air 05/31/24 07:20 O2 Flow Rate 3 05/29/24 15:36 BMI result Body Mass Index 26.8 Gen: in no acute distress HEENT: sclera anicteric, moist mucus membranes Neck: supple Lungs: clear to auscultation bilaterally Heart: regular rate and rhythm, no murmurs Abd: soft, non-tender, non-distended Ext: no edema Skin: warm/well-perfused Neuro: awake, unable to assess orientation Psych: impaired insight DS: Data Data Completed and Pending Completed studies during hospitalization [Text1]: Laboratory Results WBC 7.6 X10*3/uL (4.8-10.8) 05/31/24 05:54 RBC 3.54 X10*6/uL (4.60-5.80) L 05/31/24 05:54 Hgb 10.7 g/dl (14.0-18.0) L 05/31/24 05:54 Hct 32.4 % (42.0-52.0) L 05/31/24 05:54 MCV 91.5 fL (80.0-98.0) 05/31/24 05:54 MCH 30.2 pg (27.0-33.0) 05/31/24 05:54 MCHC 33.0 g/dl (31.0-36.0) 05/31/24 05:54 RDW 12.5 % (11.0-16.0) 05/31/24 05:54 Plt Count 158 X10*3/uL (160-400) L 05/31/24 05:54 MPV 8.9 fL (9.4-12.4) L 05/31/24 05:54 Immature Gran % (Auto) 0.4 % (0.0-0.4) 05/29/24 05:41 Neut % (Auto) 69.8 % (45-73) 05/29/24 05:41 Lymph % (Auto) 17.7 % (20-40) L 05/29/24 05:41 [place] % (Auto) 11.0 % (2-11) 05/29/24 05:41 Eos % (Auto) 0.9 % (0-4) 05/29/24 05:41 Baso % (Auto) 0.2 % (0-2) 05/29/24 05:41 Lymph # (Auto) 2.6 X10*3/uL (1.2-4.9) 05/29/24 05:41 [place] # (Auto) 1.6 X10*3/uL (0.1-1.2) H 05/29/24 05:41 Eos # (Auto) 0.1 X10*3/uL (0.0-0.4) 05/29/24 05:41 Baso # (Auto) 0.0 X10*3/uL (0.0-0.2) 05/29/24 05:41 Abs Immat Gran (auto) 0.06 X10*3/uL (0.00-0.03) H 05/29/24 05:41 Absolute Neuts (auto) 10.2 x10*3/uL (2.0-8.3) H 05/29/24 05:41 Absolute Nucleated RBC 0.000 X10*3/uL (0.0-0.012) 05/31/24 05:54 Nucleated RBC % (auto) 0.0 /100WBC (0.0-0.2) 05/31/24 05:54 Smear Tech's Comments VERIFIED 05/29/24 05:41 Hold Purple Top SEE NOTE 02/05/25 05:43 VBG pH 7.46 (7.32-7.43) H 05/28/24 15:52 VBG pCO2 33 mmHg 05/28/24 15:52 VBG pO2 34 mmHg 05/28/24 15:52 VBG HCO3 24 mmol/L (22-26) 05/28/24 15:52 VBG O2 Saturation 53.0 % 05/28/24 15:52 VBG Base Excess 1.0 mmol/L 05/28/24 15:52 Sodium 138 mmol/L (135-145) 05/30/24 05:43 Potassium 3.8 mmol/L (3.3-5.1) 05/30/24 05:43 Chloride 109 mmol/L (96-108) H 05/30/24 05:43 Carbon Dioxide 22 mmol/L (22-29) 05/30/24 05:43 Anion Gap 11 (12-20) L 05/30/24 05:43 BUN 12 mg/dL (9-16) 05/30/24 05:43 Creatinine 0.54 mg/dL (0.5-1.4) 05/30/24 05:43 Estim Creat Clear Calc 137.8 05/30/24 05:43 Estimated GFR > 60 05/30/24 05:43 POC Glucose 237 mg/dL (60-115) H 05/31/24 11:06 Random Glucose 99 mg/dL (60-115) 05/30/24 05:43 Lactic Acid 2.9 mmol/L (0.5-2.0) H* 05/28/24 17:07 Lactic Acid F/U @ 2Hr 1.8 mmol/L (0.5-2.0) 05/28/24 19:22 Calcium 9.0 mg/dL (8.4-10.2) 05/30/24 05:43 Magnesium 1.9 mg/dL (1.6-2.6) 05/29/24 05:41 Total Bilirubin 0.5 mg/dL (0.0-1.0) 05/29/24 05:41 AST 21 U/L (5-37) 05/29/24 05:41 ALT 24 U/L (0-40) 05/29/24 05:41 Alkaline Phosphatase 62 U/L (39-117) 05/29/24 05:41 Troponin I High Sens 5.7 ng/L (<3.5-35.0) 05/28/24 15:47 B-Natriuretic Peptide 55 pg/mL (<100) 05/28/24 15:47 Total Protein 7.2 g/dL (6.5-8.0) 05/29/24 05:41 Albumin 3.8 g/dL (3.5-5.0) 05/29/24 05:41 Procalcitonin 0.07 ng/mL 05/31/24 05:54 Urine Color Yellow 05/28/24 21:14 Urine Appearance Clear 05/28/24 21:14 Urine pH 7.0 (5.0-9.0) 05/28/24 21:14 Ur Specific [place] 1.010 (1.005-1.025) 05/28/24 21:14 Urine Protein Negative mg/dL (Neg-Trace) 05/28/24 21:14 Urine Glucose (UA) Negative mg/dL (Negative) 05/28/24 21:14 Urine Ketones Negative mg/dL (Negative) 05/28/24 21:14 Urine Blood Negative (Negative) 05/28/24 21:14 Urine Nitrite Negative (Negative) 05/28/24 21:14 Ur Leukocyte Esterase Negative (Negative) 05/28/24 21:14 Urine RBC 0-2 /HPF (0-2) 05/28/24 21:14 Urine WBC 0-5 /HPF (0-5) 05/28/24 21:14 Ur Squamous Epith Cells 0-2 /HPF (0-2) 05/28/24 21:14 Urine Bacteria None Seen (None Seen) 05/28/24 21:14 Hyaline Casts 0-2 /LPF (0-2) 05/28/24 21:14 Influenza Type A (PCR) NEGATIVE (Negative) 05/28/24 15:47 Influenza Type B (PCR) NEGATIVE (Negative) 05/28/24 15:47 RSV RNA Qual (PCR) NEGATIVE (Negative) 05/28/24 15:47 SARS-CoV-2 RNA (RT-PCR) NEGATIVE (Negative) 05/28/24 15:47 Impressions Chest X-Ray 05/28/24 15:21 IMPRESSION: No active pulmonary disease. Electronically signed by: Stanley Urrutia MD 05/28/2024 04:25 PM [facility] Discharge Plan Discharge Patient Disposition: Xfer [facility] Discharge Diagnosis: sepsis and hypoxia due to pneumonia Referrals: [facility] [place] [Outside] - 1 Week Casey Everett DO [Primary Care Provider] - 1 Week Discharge Medications: New doxycycline monohydrate 100 mg Capsule 100 mg PO Q12H Qty: 10 0RF cefdinir 300 mg capsule 300 mg PO BID Qty: 10 0RF Continued atorvastatin 80 mg Tablet 80 mg PO BEDTIME clonidine HCl 0.1 mg Tablet 0.1 mg PO BID acetaminophen 325 mg Tablet 650 mg PO TID acetaminophen 160 mg/5 mL Liquid 650 mg PO Q6H PRN (Reason: Fever Or Pain) amlodipine 5 mg Tablet 5 mg PO DAILY aspirin 81 mg Tablet,Chewable 81 mg PO DAILY docusate sodium 50 mg/5 mL Liquid 100 mg PO DAILY sennosides [senna] 8.6 mg Tablet 8.6 mg PO DAILY PRN (Reason: Constipation) insulin glargine [Lantus U-100 Insulin] 100 unit/mL solution 22 unit subcut BEDTIME sodium chloride 1 gram Tablet 1,000 mg PO TID miconazole nitrate 2 % Powder 1 appl TOPICAL BID risperidone [Risperdal] 2 mg Tablet 2 mg PO BID propranolol 40 mg Tablet 40 mg PO TID famotidine 20 mg Tablet 20 mg PO BEDTIME tamsulosin 0.4 mg Capsule 0.4 mg PO BEDTIME metformin 1,000 mg Tablet 1,000 mg PO BID levetiracetam 750 mg tablet 750 mg PO BID insulin lispro 100 unit/mL Insulin Pen 1 sliding scale dose SUBCUT USEASDIRECTD Protocol: Insulin Correction Scale Less than or equal to 110 ---- Give (units): 0 111 to 150 Give (units): 0 151 to 200 Give (units): 2 201 to 250 Give (units): 4 251 to 300 Give (units): 6 301 to 350 Give (units): 8 Greater than 350 Give (units): 10 Call MD if Blood Glucose > : 350 lactulose 10 gram/15 mL solution 30 ml PO BID insulin glargine [Lantus Solostar U-100 Insulin] 100 unit/mL (3 mL) Insulin Pen 14 unit SUBCUT QAM melatonin 10 mg Tablet 10 mg PO BEDTIME Fleet Enema 19-7 gram/118 mL Enema 118 ml DC DAILY PRN (Reason: Constipation) Discharge Orders: Discharge Order (Routine); Ordered 05/31/24 Ordered By: Perfecto Heller Diet: NDD2 solids/nectar liquid Activity on Discharge: As tolerated Stand Alone Forms: Patient Portal Discharge page Print Language: Syriac Care Plan Goals: recovery from pneumonia Health Concerns: sepsis and hypoxia due to pneumonia Plan of Treatment: take antibiotics as prescribed: - take doxycycline monohydrate 100 mg twice daily PLUS cefdinir 300 mg twice daily for 5 days upgrade diet to ground mechanical [NDD2] solids, continue on nectar thick liquids, pills crushed in puree, 1-1 feed return to hospital if recurrent symptoms Assessment: See Discharge Summary.
[2024-05-31] MEDS: Insulin Lispro 100 UNIT/ML 3 ML VIAL SUBCUT (11:48)
--- NOTE | 2024-05-31 12:57 | MHC.SL.SWA ---
Speech Pathologist Impression: Risk of Aspiration Due to: Neurological Condition History of Pneumonia Dysphasia Diet Status: Liquid Consistency and Strategies for Safe Swallow: Liquid Intake Recommendation: [place] Thick Liquid Intake Strategies: Small Sips No Straws Solid Food Consistency: Dietary Recommendations: Grnd/Mech Altered (NDD2) Additional Modifications to Solid Foods: Patient requires 1-1 feeding due to Quadriplegia, reduced cognition. Recommend liquids by controlled cup sip, sip/lid on cup recommended, no straws. Alternate liquids and solids. Discontinue with clinical signs of aspiration. Patient should remain in up right position after meals at least 20 minutes. Oral Medication Intake: Crushed with Puree Please contact the pharmacy regarding appropriate crushable or liquid drug formulations that are available whenever modified delivery is recommended. Compensatory Strategies and Precautions to be Taken for Safe Swallow: Sitting Upright (90 deg) No Straw Liquids from Cup Small Bites and Sips Alternate Liquids/Solids Supervision While Eating and Drinking for Safe Swallow: Total Assistance (1:1) Foods to Avoid: Mixed consistencies, tought difficult to chew solids Swallowing Recommended Treatments: Compens. Strategy Educat. Recommendation for Speech: Inpatient Speech Therapy Comment: Patient presents with a moderate oral phayngeal dysphagia, with mildly disorganized oral motor pattern when chewing solids, mildly reduced elevation of larynx on swallow, and evidence of aspiration on thin liquids. Recommend UPGRADE from Puree (NDD1) to Ground Mechanical (NDD2) continue with [place] Thick Liquids, Pills crushed in puree, 1-1 feeding. Recommend patient continue on this diet at next level of care/ return to [facility]. Due to Hiccup with admin of meal, recommend patient remain upright at least 20 minutes after meal, maintain aspiration precautions during meal. MD/RD notified of recommendations by secure text, RN in person, White Board in room altered to reflect plan. Frequency/Duration: Date Range for Service Req: Timeline to reassess: Floriculture Professor Clinican/Clinical Fellow: No Supervisory Statement: I have reviewed and agree with the student/clinical fellow's documentation: N/A Speech Language Pathologist: Rachel Uriarte M.A., CCC-WILDLIFE AND GAME PROTECTOR
--- NOTE | 2024-05-31 13:44 | MHC.CM.PN ---
IMM 05/31/24 Patient is discharged today. He will return to [facility]. 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 DC Info has been sent to the Facility. Pts Guardian, Desi Braun's office notified of discharge and IMM, Spoke with Rosie. Report to CHARLIE, She aproved his return today.
[2024-05-31 14:20] VITALS: BP 148/67; PULSE 61; RESP 18; TEMP 36.4; O2SAT 98
== END 2024-05-31 15:10 | disposition home or self-care (01) | DRG 871 ==
LOC: HO.ED 22:19 → HO.EDOVER 05-29 02:23 → HO.S3 05-29 03:00
PROVIDERS: Nurse Practitioner Acute Care; Physician Assistant Medical; Admitting Provider Internal Medicine; Emergency Provider Emergency Medicine Emergency Medical Services; PCP Hospitalist; Visit Provider Family Medicine
DX: A41.9 Sepsis, unspecified organism (principal); G82.50 Quadriplegia, unspecified; J96.01 Acute respiratory failure with hypoxia; G93.41 Metabolic encephalopathy; J69.0 Pneumonitis due to inhalation of food and vomit; J18.9 Pneumonia, unspecified organism; I10 Essential (primary) hypertension; Z66 Do not resuscitate; E11.9 Type 2 diabetes mellitus without complications; G40.909 Epilepsy, unspecified, not intractable, without status epilepticus; R65.20 Severe sepsis without septic shock; E87.5 Hyperkalemia; E83.42 Hypomagnesemia; Z20.822 Contact with and (suspected) exposure to COVID-19; Z79.4 Long term (current) use of insulin; Z79.82 Long term (current) use of aspirin; Z79.84 Long term (current) use of oral hypoglycemic drugs; Z79.899 Other long term (current) drug therapy
CPT/HCPCS: 0241U; 36415; 70450; 71045; 71275; 80048; 80053; 81001; 82803; 82947; 83605; 83735; 83880; 84145; 84484; 85025; 85027; 87040; 92610; 93005; 99285; C1758; J0692; J0696; J1650; J1885; J3475; J7120

== ENCOUNTER → 2024-05-28 15:21 | Outpatient (BNV) | payer MEDICARE, MEDICAID, SELFPAY | PROVIDERS: Emergency Provider Emergency Medicine Emergency Medical Services; Visit Provider Radiology Diagnostic Radiology | DX: J18.9 Pneumonia, unspecified organism (principal); G93.89 Other specified disorders of brain; R06.02 Shortness of breath | CPT/HCPCS: 71045 ==

== ENCOUNTER → 2024-05-28 15:21 | Outpatient (BNV) | payer MEDICARE, MEDICAID, SELFPAY | PROVIDERS: Admitting Provider Internal Medicine; Emergency Provider Emergency Medicine Emergency Medical Services; Visit Provider Internal Medicine Cardiovascular Disease | DX: I45.2 Bifascicular block (principal) | CPT/HCPCS: 93010 ==

== ENCOUNTER → 2024-05-28 15:47 | Outpatient (BNV) | payer MEDICARE, MEDICAID, SELFPAY | PROVIDERS: Emergency Provider Emergency Medicine Emergency Medical Services; Visit Provider Internal Medicine | DX: J96.01 Acute respiratory failure with hypoxia (principal); A41.9 Sepsis, unspecified organism; R65.20 Severe sepsis without septic shock; J18.9 Pneumonia, unspecified organism; R40.0 Somnolence; E83.42 Hypomagnesemia; E87.5 Hyperkalemia | CPT/HCPCS: 99223; 99232; 99239 ==

== ENCOUNTER 2025-01-24 11:57 | Outpatient (REF) | payer MEDICARE, MEDICAID, SELFPAY ==
[2025-01-24 13:47] LABS: Alanine Aminotransferase 19 U/L (0-40); Albumin Level 4.5 g/dL (3.5-5.0); Alkaline Phosphatase 83 U/L (39-117); Anion Gap 14 (12-20); Aspartate Amino Transferase 23 U/L (5-37); Blood Urea Nitrogen 17 mg/dL (9-16); Calcium 9.4 mg/dL (8.4-10.2); Carbon Dioxide 23 mmol/L (22-29); Chloride 107 mmol/L (96-108); Estimated Glomerular Filt Rate > 60; Potassium 4.7 mmol/L (3.3-5.1); Sodium 139 mmol/L (135-145); Total Protein 7.3 g/dL (6.5-8.0)
== END 2025-01-24 11:58 | disposition home or self-care (01) ==
LOC: HO.LAB 11:57
PROVIDERS: PCP Hospitalist; Visit Provider Nurse Practitioner
DX: Z01.818 Encounter for other preprocedural examination (principal); G40.909 Epilepsy, unspecified, not intractable, without status epilepticus; J18.9 Pneumonia, unspecified organism; Z12.11 Encounter for screening for malignant neoplasm of colon; Z86.19 Personal history of other infectious and parasitic diseases
CPT/HCPCS: 36415; 80053; 99202

== ENCOUNTER 2025-01-24 11:57 | Outpatient (AMB) | payer MEDICARE, MEDICAID, SELFPAY ==
[2025-01-24 12:01] VITALS: BP 120/63; PULSE 63
--- NOTE | 2025-01-24 12:01 | MHC.OFFVIS ---
Vital Signs 01/24/25 12:01 Height 5 ft 6 in BP 120/63 Blood Pressure Location Rt brachial Position Sitting Pulse 63 Intake Visit Reasons: colo screening Intake Note: New patient in office today for colonoscopy screening. CC: Pt non verbal with correction staff. Unable to provide hx. Allergies Penicillins Allergy (Verified 01/24/25 12:07) Unknown valproic acid Allergy (Verified 01/24/25 12:07) Unknown HPI HPI colo screening: Details: 54-year-old male here for preprocedural meeting to discuss a screening colonoscopy. He is referred by Nic. PMX Hypertension High cholesterol Diabetes BPH History of subarachnoid hemorrhage/CVA/seizures/cognitive deficit Constipation History of alcohol use disorder Insomnia Oropharyngeal dysphagia * SURGICAL HISTORY * ALLERGIES Penicillin * LiB LABS: Needs Chem panel TODAY'S VISIT [facility] Medical History History of CVA (cerebrovascular accident) History of subarachnoid hemorrhage Hypertension Diabetes type 2, controlled Social History Household Members: Other Housing: Prison Do you presently have visiting nurse or other home services: No Unable to assess alcohol history related to: Unable to respond Patient Tobacco Use Status: Tobacco use Unknown Advance Directives Date on File: 02/10/23 service: No Review of Systems Const Denies fatigue, Denies fever(s), Denies night sweats, Denies poor appetite and Denies weight loss ENT Reports Normal hearing present, Denies dental pain, Denies dysphagia, Denies hearing loss, Denies mouth pain, Denies odynophagia, Denies throat swelling, Denies tongue swelling and Reports other (Dentition adequate) Card Reports no additional complaints Resp Reports no additional complaints GI Details: Denies abdominal pain, Denies melena, Denies bloating, Denies hematochezia, Denies constipation, Denies GI cramping, Denies dysphagia, Denies excessive flatus, Denies early satiety, Denies heartburn, Denies diarrhea, Denies nausea, Denies odynophagia, Denies vomiting and Denies hematemesis Skin/Breast Denies pruritus, Denies lesions, Denies rash and Denies jaundice Neuro Reports Normal hearing present and Denies Abnormal speech present Endo Denies fatigue Aller/Immun Denies throat swelling and Denies tongue swelling Physical Exam Vital Signs: Last Vital Signs Pulse 63 01/24/25 12:01 BP 120/63 01/24/25 12:01 Const General: cooperative, no acute distress, well developed and well groomed Nutritional Appearance: well nourished and overweight Orientation/consciousness: oriented to person, oriented to place and oriented to time Limitations: behavioral limitations (he likes to hit people), No language barrier, wheelchair and other limitations HEENT Head: Yes normocephalic and Yes atraumatic Eyes General: appearance normal, both eyes and all related structures Pupils: Equal, round and reactive pupils present Neck Neck: Yes normal visual inspection and Yes no lymphadenopathy Thyroid: Thyroid normal Resp Effort & Inspection: normal respiratory effort and able to speak in complete sentences Auscultation: clear to auscultation bilaterally Cardio Rate: regular rate Rhythm: regular rhythm Heart sounds: Normal, physiologic split S2 sound present Peripheral pulses: radial pulses present and posterior tibial pulses present GI Inspection: No distended and No Abdominal panniculus present Palpation (GI): Soft to palpation, nontender, no guarding, not rigid and No hepatosplenomegaly present Percussion: Yes normal to percussion Auscultation: normal bowel sounds Rectal Exam - Male: Yes deferred Skin General skin exam: no rashes or lesions noted, turgor normal, skin not dry, no jaundice, No spider nevi and no striae Rashes: no rashes Nails: normal Neuro General: oriented to person, oriented to place and oriented to time Cranial nerves: Yes Equal, round and reactive pupils present and Yes Normal hearing present Speech: No Abnormal speech present Extrem Other: Fists contracted in upper extremities there is some muscle wasting of the lower General: No clubbing, No cyanosis and Yes edema (Some mild edema of the fingers) Psych Appearance: grossly normal and well kempt Mental Status: other Speech and movement: Mute speech present Affect: Other affect and mood findings present Attitude: Other attitude/behavior findings present (Psych) Thought process: Other thought process findings present Thought content: other Insight: Poor insight present (Psych) Judgement: Poor judgement present (Psych) Assessment & Plan Assessment & Plan (1) Pre-op examination: Code(s): Z01.818 - Encounter for other preprocedural examination Category: Medical (2) Seizure disorder: Code(s): G40.909 - Epilepsy, unspecified, not intractable, without status epilepticus Category: Medical (3) 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: Code(s): R41.89 - Other symptoms and signs involving cognitive functions and awareness; S09.90XS - Unspecified injury of head, sequela Category: Medical (4) History of sepsis: Comment: Multiple hospitalizations since 2022 Code(s): Z86.19 - Personal history of other infectious and parasitic diseases Category: Medical (5) History of sepsis: Comment: Multiple hospitalizations since 2022 Code(s): Z86.19 - Personal history of other infectious and parasitic diseases Category: Medical (6) Pneumonia: Code(s): J18.9 - Pneumonia, unspecified organism Category: Medical Qualifiers: Laterality: right Lung location: middle lobe of lung Pneumonia type: due to unspecified organism Qualified Code(s): J18.9 - Pneumonia, unspecified organism (7) History of aspiration pneumonia: Comment: Most recent inpatient hospitalization 05/2024 Code(s): Z87.01 - Personal history of pneumonia (recurrent) Category: Medical Plan 54-year-old male with severe cognitive deficit due to past subarachnoid hemorrhage sent here by his correction for colonoscopy screening. In short, this patient maybe a very high risk for sedation given his history of repeated bouts of what is likely aspiration pneumonia and sepsis. His last hospitalization was in May of this year. This is confounded by the fact that we do not know much about his medical history in terms of his family history and risk for colon cancer or if he has tolerated sedation and analgesia in the past. He does have behavioral problems as he likes to thrash and hit people and becomes agitated easily. He does not appear to have cardiac problems but again he has had a lot of respiratory issues. He has response to anesthesia and sedation is unknown. She has dysphagia, and can not self report but does not appear to have any bowel issues reported by the residential facility. His infectious disease history is not thoroughly known. In short I am not going to approve going forward with the procedure, although I will order it, until he has been evaluated and cleared by pulmonology. Cologuard screening may be a better option if they feel that his respiratory status is risky. Orders: Orders Comprehensive Met. Panel Today Z01.818 - Encounter for other preprocedural examination Referrals GI Procedure Notification Z01.818 - Encounter for other preprocedural examination Pulmonology Referral J18.9 - Pneumonia, unspecified organism, Z01.818 - Encounter for other preprocedural examination, Z86.19 - Personal history of other infectious and parasitic diseases, Z87.01 - Personal history of pneumonia (recurrent) Medications: New peg 3350-electrolytes 236-22.74-6.74 -5.86 gram (Golytely) until fecal effluent is clear; do not exceed a total volume of 2,000 mL 240 mL PO Q10M 4,000 mL 0RF 1 day Z12.11 - Encounter for screening for malignant neoplasm of colon bisacodyl (Dulcolax (bisacodyl)) 10 mg (2 x 5 mg) PO BEDTIME 4 tabs 0RF 2 days Coding Level of Care Code New Pt Level 3 (58349) Diagnoses Pre-op examination Z01.818 Seizure disorder G40.909 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
--- OUTSIDE RECORDS SUMMARY | 2025-01-24 13:40 | XMS_ITS | Clinical Summary ---
Author Organization [facility] Address [address] [place] [address] Care Team Providers Care Skin Piler Name Role Phone Unavailable Primary Care Provider [...] 81 07/21/2022 8:00 AM EDT Temperature 36.5 C (97.7 F) 07/21/2022 6:12 AM EDT Respiratory Rate 18 07/21/2022 6:12 AM EDT [...] o f 2) 01/27/2018 COVID-19 Vaccine (3 2024-2 6 season) 2024 07/09/2022, 06/15/2022 Influenza Vaccine (#1) 2024 04/22/2020 DTap / Tdap / Td (2 - Td or Tdap) 05/12/2031 05/12/2021 Pneumococcal Vaccine Aged Out No long er eligible based on patient's age to complete this topic RSV Ped < 20 months Aged Out No longe r eligible based on patient's age to complete this topic Advance Directives For more information, please contact: [phone] Latest Code Status on File Code Status [...]
--- OUTSIDE RECORDS SUMMARY | 2025-01-24 13:40 | XMS_ITS ---
Author Name [facility] Organization Unknown Care Team Organization Name Specialty Phone [facility] 12[facility]17/2022 [facility] 0 11/26/2022 12/12/2023 [facility] Primary [facility] [place]
== END 2025-01-24 12:40 | disposition home or self-care (01) ==
LOC: HO.HGI 11:57
PROVIDERS: PCP Hospitalist; Visit Provider Nurse Practitioner
DX: G40.909 Epilepsy, unspecified, not intractable, without status epilepticus (principal); Z86.19 Personal history of other infectious and parasitic diseases; R41.89 Other symptoms and signs involving cognitive functions and awareness; S09.90XS Unspecified injury of head, sequela; J18.9 Pneumonia, unspecified organism; Z87.01 Personal history of pneumonia (recurrent)
CPT/HCPCS: 99203

== ENCOUNTER 2025-04-02 15:12 | Outpatient (AMB) | payer MEDICARE, MEDICAID, SELFPAY ==
[2025-04-02 15:18] VITALS: BP 120/68; PULSE 69; O2SAT 99
--- NOTE | 2025-04-02 15:18 | MHC.OFFVIS ---
Vital Signs 04/02/25 15:18 Height 5 ft 6 in BMI Reason not done Patient refused/unable BP 120/68 Blood Pressure Location Lt brachial Position Sitting Pulse 69 Pulse Source Pulse Oximeter Pulse Oximetry (%) 99 Oxygen Delivery Method Room Air Intake Visit Reasons: Pneumonia/Pre Op Colonoscopy Intake Note: pt is here for possible pre-op clearannce for colonoscopy not scheduled. Allergies Penicillins Allergy (Verified 04/02/25 16:02) Unknown valproic acid Allergy (Verified 04/02/25 16:02) Unknown Medication List - Last Reconciled 04/02/25 by Micaela Moreno MD acetaminophen 650 mg PO TID acetaminophen 650 mg PO Q6H PRN amlodipine 5 mg PO DAILY aspirin 81 mg PO DAILY atorvastatin 80 mg PO BEDTIME bisacodyl (Dulcolax (bisacodyl)) 10 mg (2 x 5 mg) PO BEDTIME 2 days clonidine HCl 0.1 mg PO BID docusate sodium 100 mg PO DAILY famotidine 20 mg PO BEDTIME insulin glargine (Lantus Solostar U-100 Insulin) 14 units subcut QAM insulin glargine (Lantus U-100 Insulin) 22 units subcut BEDTIME insulin lispro (Humalog Andrews KwikPen (U-100)) 1 sliding scale dose subcut USEASDIRECTD lactulose 30 mL PO BID levetiracetam 750 mg PO BID melatonin 10 mg PO BEDTIME metformin 1,000 mg PO BID miconazole nitrate 2% 1 appl topical BID peg 3350-electrolytes 236-22.74-6.74 -5.86 gram (Golytely) 240 mL PO Q10M 1 day propranolol 40 mg PO TID sennosides (senna) 8.6 mg PO DAILY PRN sodium chloride 1,000 mg PO TID sodium phosphates 19-7 gram/118 mL (Fleet Enema) 118 mL SD DAILY PRN tamsulosin 0.4 mg PO BEDTIME Do you need a note to return to daycare/school/sports/work: No HPI HPI Pneumonia/Pre Op Colonoscopy: Details: 55 YEARS OLD GENTLEMAN IS SENT FROM [facility], . BACK IN MAY OF THIS YEAR HE WAS ADMITTED TO [facility] WITH ACUTE RESPIRATORY FAILURE. [facility] RECORDS REVIEWED AND IT IS NOTED THAT HE WAS ADMITTED WITH PNEUMONIA AND PROBABLY DUE TO PULMONARY ASPIRATION. HE WAS TREATED WITH A COURSE OF CEFEPIME TO START WITH AND THEN CHANGED TO DOXYCYCLINE PLUS CEFTRIAXONE. INITIALLY HE NEEDED O2, BUT AT THE TIME OF DISCHARGE HE DID NOT, HIS O2 SATS WERE OKAY. THIS GENTLEMAN IS BEING CONSIDERED TO UNDERGO COLONOSCOPY. HE IS SENT FOR PULMONARY EVALUATION TO SEE IF HE CAN UNDERGO THIS PROCEDURE AND IF HE NEEDS SEDATION WOULD THAT BE OKAY. HIS PAST HISTORY IS QUITE EXTENSIVE, I HAVE REVIEWED THE HOSPITAL RECORDS WELL NOTES FROM THE [facility]. HE HAS BEEN AT THE FACILITY FOR THE PAST MANY YEARS , BEING MANAGED FOR POST HEAD INJURY COGNITIVE IMPAIRMENT, SEIZURE DISORDER , BEHAVIOR ISSUES, HE REMAINS NONVERBAL AND ALSO SOMEWHAT COMBATIVE. HE HAS OTHER COMORBIDITIES INCLUDING DIABETES MELLITUS, BPH, SB PHARYNGEAL DYSPHAGIA. MENTALLY HE IS NONVERBAL, SOMEWHAT COMBATIVE AND NONCOOPERATIVE. HE IS BROUGHT IN THE WHEELCHAIR. THRASHING HIS FEET ON THE GROUND AND WITH FREQUENT ARM MOVEMENTS. [facility] Medical History Respiratory failure History of CVA (cerebrovascular accident) History of subarachnoid hemorrhage Hypertension Diabetes type 2, controlled Social History Household Members: Other Housing: Alf Do you presently have visiting nurse or other home services: No Patient Tobacco Use Status: Tobacco use Unknown Advance Directives Date on File: 02/10/23 service: No Review of Systems Const Details: NOT OBTAINABLE HE IS NON COOPERATIVE AND NONVERBAL . ENT Reports Normal hearing present Neuro Reports Normal hearing present and Denies Abnormal speech present Physical Exam Exam Exam: NARRATIVE : THIS 55 YEARS OLD GENTLEMAN IS IN THE WHEELCHAIR, SOMEWHAT RESTLESS, THRASHING AROUND HIS ARMS AND FEET. NONVERBAL AND NONCOOPERATIVE. I PEAKED INTO HIS MOUTH AND HE HAS VERY POOR SB DENTAL HYGIENE WITH EXTENSIVE STAINING OF HIS TEETH. I COULD NOT. LOOK DEEP IN HIS THROAT I WAS ABLE TO DO THE CHEST PERCUSSION AND ALSO LISTEN TO THE LUNGS. HE HAS SOMEWHAT DISTANT BREATH SOUNDS. BUT BOTH SIDES WERE CLEAR AND I DID NOT HEAR ANY CREPITATIONS OR WHEEZES. HEART SOUNDS WERE ALSO REGULAR KIND OF NORMAL AND NO MURMURS. I COULD NOT DO ANY OTHER ADDITIONAL EXAMINATION. Vital Signs: Last Vital Signs Pulse 69 04/02/25 15:18 BP 120/68 04/02/25 15:18 Pulse Ox 99 04/02/25 15:18 Oxygen Delivery Method Room Air 04/02/25 15:18 Const General: cooperative, no acute distress, well developed and well groomed Nutritional Appearance: well nourished and overweight Orientation/consciousness: oriented to person, oriented to place and oriented to time Limitations: behavioral limitations (he likes to hit people), No language barrier, wheelchair and other limitations HEENT Head: Yes normocephalic and Yes atraumatic Eyes General: appearance normal, both eyes and all related structures Pupils: Equal, round and reactive pupils present Neck Neck: Yes normal visual inspection and Yes no lymphadenopathy Thyroid: Thyroid normal Resp Effort & Inspection: normal respiratory effort and able to speak in complete sentences Auscultation: clear to auscultation bilaterally Cardio Rate: regular rate Rhythm: regular rhythm Heart sounds: Normal, physiologic split S2 sound present Peripheral pulses: radial pulses present and posterior tibial pulses present GI Inspection: No distended and No Abdominal panniculus present Palpation (GI): Soft to palpation, nontender, no guarding, not rigid and No hepatosplenomegaly present Percussion: Yes normal to percussion Auscultation: normal bowel sounds Rectal Exam - Male: Yes deferred Skin General skin exam: no rashes or lesions noted, turgor normal, skin not dry, no jaundice, No spider nevi and no striae Rashes: no rashes Nails: normal Neuro General: oriented to person, oriented to place and oriented to time Cranial nerves: Yes Equal, round and reactive pupils present and Yes Normal hearing present Speech: No Abnormal speech present Extrem Other: Fists contracted in upper extremities there is some muscle wasting of the lower General: No clubbing, No cyanosis and Yes edema (Some mild edema of the fingers) Psych Appearance: grossly normal and well kempt Mental Status: other Speech and movement: Mute speech present Affect: Other affect and mood findings present Attitude: Other attitude/behavior findings present (Psych) Thought process: Other thought process findings present Thought content: other Insight: Poor insight present (Psych) Judgement: Poor judgement present (Psych) Results Reviewed Results Reviewed: VENOUS BLOOD GAS STUDY SURPRISINGLY HIS VENOUS BLOOD GASES ARE PERFECTLY NORMAL. PH 7.41, PCO2 33, PO2 72 HCO3 21 Assessment & Plan Assessment & Plan (1) History of aspiration pneumonia: Comment: Most recent inpatient hospitalization 05/2024, he has had no recurrence of aspiration pneumonia since then. He has no active respiratory distress. Venous blood gas study shows pCO2 33 pH 7.41, ( normal ) Code(s): Z87.01 - Personal history of pneumonia (recurrent) Category: Medical Plan: * I think from pulmonary point of view, if sedation is needed during the procedure( colonoscopy ) there is no contraindication. Orders: Orders Venous Blood Gas Today J96.90 - Respiratory failure, unspecified, unspecified whether with hypoxia or hypercapnia, Z87.01 - Personal history of pneumonia (recurrent) Coding Level of Care Code New Pt Level 3 (94564) Diagnoses History of aspiration pneumonia Z87.01
--- OUTSIDE RECORDS SUMMARY | 2025-04-02 21:36 | XMS_ITS | Clinical Summary ---
Author Organization [facility] Prior to 09/22/24 Address [address] [place] [address] Care Team Providers Care Central Office Technician Name Role Phone Unavailable Primary Care Provider [...] bedtime as needed for sleep. 90 tablet 07/19/2022 Active docusate sodium (ENEMEEZ) 283 MG [...] o f 2) 01/27/2018 COVID-19 Vaccine (3 - 2024-2 6 season) 2024 07/09/2022, 06/15/2022 Influenza [...] Advance Directives For more information, please contact: [phone] Latest Code Status on File Code Status [...]
== END 2025-04-02 16:19 | disposition home or self-care (01) ==
LOC: HO.HPS 15:12
PROVIDERS: PCP Hospitalist; Visit Provider Internal Medicine
DX: Z87.01 Personal history of pneumonia (recurrent) (principal)
CPT/HCPCS: 99203

== ENCOUNTER 2025-04-02 15:12 | Outpatient (REF) | payer MEDICARE, MEDICAID, SELFPAY ==
[2025-04-02 15:58] LABS: Venous Blood Gas Refer to POC result
[2025-04-02 16:02] LABS: VBG HCO3 21 mmol/L (22-26); VBG O2 % Saturation 93.0 %
== END 2025-04-02 15:13 | disposition home or self-care (01) ==
LOC: HO.LAB 15:12
PROVIDERS: PCP Hospitalist; Visit Provider Internal Medicine
DX: J96.90 Respiratory failure, unspecified, unspecified whether with hypoxia or hypercapnia (principal); Z87.01 Personal history of pneumonia (recurrent); Z79.899 Other long term (current) drug therapy; Z79.82 Long term (current) use of aspirin
CPT/HCPCS: 36415; 82803; 99202